=== PATIENT | male | born 1940 | race Caucasian/White ===

== ENCOUNTER 2021-02-13 09:43 | Inpatient (IN) | payer MEDICARE, SELFPAY ==
[2021-02-13] VITALS (89 sets, daily range): BP systolic 89–131; BP diastolic 35–84; PULSE 62–119; RESP 1–43; TEMP 36.5–38.5; O2SAT 88–99
--- NOTE | 2021-02-13 09:30 | RT.EKG_ITS ---
APPROVED REPORT Exam: Resting ECG Reason for Exam: sob Patient Location: E HR:95 bpm ECG Measurements Heart Rate 95 AXIS AK 26 P 0 QRSd 144 QRS 164 QT 387 T 53 QTc 487 Conclusion Sinus rhythm...normal P axis, V-rate 60- 99 Right bundle branch block...QRSd>120, terminal axis(90,270). Sinus. RBBB. No STEMI. No old EKG to compare. I have reviewed and interpreted ECG and agree with software generated interpretation.
--- NOTE | 2021-02-13 09:48 | W.ED.GENAD ---
Discharge Plan Disposition Patient Disposition: [facility] INPATIENT Condition: Serious Discharge Details Clinical Impression: Sepsis, HCAP (healthcare-associated pneumonia), Acute kidney injury superimposed on chronic kidney disease Admit Date/Time: 02/13/21 14:53 Admit Provider: Dragan Lentz Attending Provider: Dragan Lentz Primary Care Provider: Arash Amado ED Provider: Ofe Jordan Discharge Data Discharge Date/Time-TO BE ENTERED AT DEPARTURE: 02/13/21 15:30 Medical Decision Making 80yo M w/ a history of COPD on chronic nasal cannula oxygen and DNR/DNI, dementia, chronic kidney disease, diabetes and BPH presents for difficulty breathing today. Reported to not have been placed on his nasal cannula O2 at rehab initially and EMS reported O2 sat 85% on 2L high flow nasal cannula. Oxygen saturation 97% on 6 L on arrival, will titrate to keep O2 sat >90%. Blood pressure initially 89/35. Axillary temperature 101.3. Patient has diminished breath sounds throughout with scattered rhonchi. Consider sepsis. Will place an IV, bolus IV fluids, screening labs, portable chest x-ray, Covid swab. BP improved with fluids, systolic BP 130s, now 115/54. Labs reviewed. White blood cell count 20. Lactate 3. Sodium 146. Creatinine 3.3. GFR 18. Troponin negative. Urinalysis notes RBCs but no WBCs. Covid swab negative. Chest x-ray notes left lung base infiltrate. A dose of Levaquin p.o. ordered. Patient was able to drink some fluids. Review of patient's records from the health and rehab note that he is on supplemental O2 as needed to keep his O2 above 90%. Oxygen saturation 94% on 3 L nasal cannula. Although his blood pressure is improving with fluids with systolic pressures in the 110s to 120s, as he is requiring supplemental oxygen, with a lactate only minimally improved to 2.9 with fluids, and procalcitonin 2.8, will admit for IV antibiotics and IV fluid hydration with potential sepsis in the setting of pneumonia. Zosyn and vancomycin IV ordered. Case d/w hospitalist who accepts pt for admission. Would prefer cefepime due to kidney disease. Discussed with pharmacy and recommend 1 g of cefepime and will dose vancomycin. Medical Records Medical records reviewed: Yes I reviewed the patient's medical records. Imaging Data Radiologic Study: Radiologist's impression: XR PORTABLE CHEST AP CLINICAL HISTORY: fever, hypoxia, r/o pneumonia. TECHNIQUE: 2D digital imaging was performed. COMPARISON: No exams were available for comparison FINDINGS: There are sternotomy wires and evidence of previous CABG. Heart size is normal.. The mediastinum is not widened. Increased markings in the left lung base. Possible infiltrate. No pulmonary edema. Retrocardiac density possible hiatal hernia IMPRESSION: Left lung base infiltrate. Recommend nonportable PA and lateral views when clinically possible. Or CT scan. Lab Data Lab results reviewed: Yes I reviewed the patient's lab results. Labs: 02/13/21 11:10 Urine - Reflex from Ua Urine Culture - Pending 02/13/21 10:25 Blood Blood Culture - Pending 02/13/21 10:13 Blood Blood Culture - Pending Laboratory Tests Range/Units 02/13/21 02/13/21 02/13/21 10:13 10:13 10:13 WBC (4.4-10.8) 10^3/uL 20.21 H RBC (4.36-5.78) 10^6/uL 4.04 L Hgb (13.5-17.5) g/dL 11.9 L Hct (40.0-50.0) % 38.7 L MCV (80-95) fL 95.8 H MCH (27.0-33.0) pg 29.5 MCHC (32.0-36.0) % 30.7 L RDW (11.8-14.1) % 13.6 Plt Count (130-400) 10^3/uL 257 MPV (8.0-11.0) fL 11.2 H Immature Gran % 0.4 Neutrophils % 90.5 Lymphocytes % 2.8 Monocytes % 6.1 Eosinophils % 0.0 Basophils % 0.2 Nucleated RBC % % 0 Absolute Neutrophils (1.2-6.7) 10^3/uL 18.29 H Absolute Lymphocytes (1.2-3.4) 10^3/uL 0.57 L Absolute Monocytes (0.1-0.8) 10^3/uL 1.23 H Absolute Eosinophils (0.0-0.7) 10^3/uL 0.00 Absolute Basophils (0.0-0.2) 10^3/uL 0.04 VBG Lactate (0.6-1.4) mmol/L 3.0 H* Sodium (136-145) mmol/L 144 Potassium (3.5-5.1) mmol/L 4.7 Chloride (98-107) mmol/L 109 H Carbon Dioxide (21.0-32.0) mmol/L 24.0 Anion Gap (3-11) mmol/L 11.0 BUN (7-18) mg/dL 54 H Creatinine (0.70-1.30) mg/dL 3.3 H Estimated GFR/1.73 m2 (mL/min/1.73m2) 18.17 Glucose (74-106) mg/dL 257 H Calcium (8.5-10.1) mg/dL 8.8 Magnesium (1.8-2.4) mg/dL 2.0 Total Bilirubin (0.2-1.0) mg/dL 0.7 AST (15-37) U/L 69 H ALT (16-63) U/L 38 Alkaline Phosphatase (46-116) U/L 151 H Troponin I (<0.06) ng/mL < 0.05 Total Protein (6.4-8.2) g/dL 7.3 Albumin (3.4-5.0) g/dL 3.0 L Procalcitonin ng/mL Urine Color (Yellow) Urine Clarity (Clear) Urine pH (5-8) Ur Specific [place] (1.005-1.025) Urine Protein (Negative) mg/dL Urine Ketones (Negative) mg/dL Urine Blood (Negative) Urine Nitrite (Negative) Urine Bilirubin (Negative) Urine Urobilinogen (Up TO 0.2) EU/dL Ur Leukocyte Esterase (Negative) Urine RBC (0-2) HPF Urine WBC (0-5) HPF Ur Epithelial Cells (Negative) HPF Urine Crystals (Negative) HPF Urine Bacteria (Negative) HPF Urine Casts (Negative) LPF Urine Mucus (Negative) Ur Culture Indicated? Urine Glucose (Negative) mg/dL COVID-19 Source SARS-CoV-2 (PCR) (Negative) Range/Units 02/13/21 02/13/21 02/13/21 10:45 11:10 12:37 WBC (4.4-10.8) 10^3/uL RBC (4.36-5.78) 10^6/uL Hgb (13.5-17.5) g/dL Hct (40.0-50.0) % MCV (80-95) fL MCH (27.0-33.0) pg MCHC (32.0-36.0) % RDW (11.8-14.1) % Plt Count (130-400) 10^3/uL MPV (8.0-11.0) fL Immature Gran % Neutrophils % Lymphocytes % Monocytes % Eosinophils % Basophils % Nucleated RBC % % Absolute Neutrophils (1.2-6.7) 10^3/uL Absolute Lymphocytes (1.2-3.4) 10^3/uL Absolute Monocytes (0.1-0.8) 10^3/uL Absolute Eosinophils (0.0-0.7) 10^3/uL Absolute Basophils (0.0-0.2) 10^3/uL VBG Lactate (0.6-1.4) mmol/L 2.9 H* Sodium (136-145) mmol/L Potassium (3.5-5.1) mmol/L Chloride (98-107) mmol/L Carbon Dioxide (21.0-32.0) mmol/L Anion Gap (3-11) mmol/L BUN (7-18) mg/dL Creatinine (0.70-1.30) mg/dL Estimated GFR/1.73 m2 (mL/min/1.73m2) Glucose (74-106) mg/dL Calcium (8.5-10.1) mg/dL Magnesium (1.8-2.4) mg/dL Total Bilirubin (0.2-1.0) mg/dL AST (15-37) U/L ALT (16-63) U/L Alkaline Phosphatase (46-116) U/L Troponin I (<0.06) ng/mL Total Protein (6.4-8.2) g/dL Albumin (3.4-5.0) g/dL Procalcitonin ng/mL Urine Color (Yellow) Yellow Urine Clarity (Clear) Clear Urine pH (5-8) 5.5 Ur Specific [place] (1.005-1.025) 1.025 Urine Protein (Negative) mg/dL 30 H Urine Ketones (Negative) mg/dL Trace H Urine Blood (Negative) Moderate H Urine Nitrite (Negative) Negative Urine Bilirubin (Negative) Small H Urine Urobilinogen (Up TO 0.2) EU/dL 1.0 H Ur Leukocyte Esterase (Negative) Trace H Urine RBC (0-2) HPF 5-10 H Urine WBC (0-5) HPF 0-2 Ur Epithelial Cells (Negative) HPF Few Urine Crystals (Negative) HPF Few Amorphous Urine Bacteria (Negative) HPF Negative Urine Casts (Negative) LPF 5-10 Fine Granular Urine Mucus (Negative) Trace Ur Culture Indicated? Yes Urine Glucose (Negative) mg/dL Negative COVID-19 Source Nasal/Nares SARS-CoV-2 (PCR) (Negative) Negative Range/Units 02/13/21 02/13/21 12:37 12:37 WBC (4.4-10.8) 10^3/uL RBC (4.36-5.78) 10^6/uL Hgb (13.5-17.5) g/dL Hct (40.0-50.0) % MCV (80-95) fL MCH (27.0-33.0) pg MCHC (32.0-36.0) % RDW (11.8-14.1) % Plt Count (130-400) 10^3/uL MPV (8.0-11.0) fL Immature Gran % Neutrophils % Lymphocytes % Monocytes % Eosinophils % Basophils % Nucleated RBC % % Absolute Neutrophils (1.2-6.7) 10^3/uL Absolute Lymphocytes (1.2-3.4) 10^3/uL Absolute Monocytes (0.1-0.8) 10^3/uL Absolute Eosinophils (0.0-0.7) 10^3/uL Absolute Basophils (0.0-0.2) 10^3/uL VBG Lactate (0.6-1.4) mmol/L Sodium (136-145) mmol/L 146 H Potassium (3.5-5.1) mmol/L 4.0 Chloride (98-107) mmol/L 111 H Carbon Dioxide (21.0-32.0) mmol/L 23.7 Anion Gap (3-11) mmol/L 11.3 H BUN (7-18) mg/dL 57 H Creatinine (0.70-1.30) mg/dL 3.2 H Estimated GFR/1.73 m2 (mL/min/1.73m2) 18.83 Glucose (74-106) mg/dL 223 H Calcium (8.5-10.1) mg/dL 8.7 Magnesium (1.8-2.4) mg/dL Total Bilirubin (0.2-1.0) mg/dL AST (15-37) U/L ALT (16-63) U/L Alkaline Phosphatase (46-116) U/L Troponin I (<0.06) ng/mL Total Protein (6.4-8.2) g/dL Albumin (3.4-5.0) g/dL Procalcitonin ng/mL 2.8 Urine Color (Yellow) Urine Clarity (Clear) Urine pH (5-8) Ur Specific [place] (1.005-1.025) Urine Protein (Negative) mg/dL Urine Ketones (Negative) mg/dL Urine Blood (Negative) Urine Nitrite (Negative) Urine Bilirubin (Negative) Urine Urobilinogen (Up TO 0.2) EU/dL Ur Leukocyte Esterase (Negative) Urine RBC (0-2) HPF Urine WBC (0-5) HPF Ur Epithelial Cells (Negative) HPF Urine Crystals (Negative) HPF Urine Bacteria (Negative) HPF Urine Casts (Negative) LPF Urine Mucus (Negative) Ur Culture Indicated? Urine Glucose (Negative) mg/dL COVID-19 Source SARS-CoV-2 (PCR) (Negative) ECG Data Attestation: I personally reviewed and interpreted this ECG (s) as follows: Interpretation: rate of 79, sinus, right bundle branch block. No STEMI. HPI General Mode of arrival: EMS. Date/Time Provider Initiated Documentation: 02/13/21 09:47. Limitations to Documentation: no limitations. Information obtained by: patient. HPI Narrative: Patient is a 80-year-old male with history of COPD on chronic nasal cannula oxygen and DNR/DNI, dementia, chronic kidney disease, diabetes and BPH presents for difficulty breathing. Report was [facility] and rehab did not place patient on his nasal cannula oxygen initially. EMS reports oxygen saturation 85% on high flow nasal cannula. Report his temperature was 100.9. Patient is moaning and unable to provide history. Related Data Home Medications Medication Instructions Recorded Confirmed acetaminophen 650 mg PO Q6H PRN 02/13/21 02/13/21 albuterol sulfate 2.5 mg INHALATION Q4H PRN 02/13/21 02/13/21 aspirin 81 mg PO DAILY 02/13/21 02/13/21 atorvastatin 80 mg PO DAILY 02/13/21 02/13/21 bisacodyl [Dulcolax (bisacodyl)] 10 mg [place] DAILY PRN 02/13/21 02/13/21 dextrose [Glucose Gel] 15 g PO DIRECTED PRN 02/13/21 02/13/21 docusate sodium [Colace] 100 mg PO BID PRN 02/13/21 02/13/21 finasteride 5 mg PO DAILY 02/13/21 02/13/21 fluticasone propionate [Flovent] 2 puff INHALATION BID 02/13/21 02/13/21 glucagon 1 mg IM DIRECTED PRN 02/13/21 02/13/21 insulin glargine [Lantus U-100 30 unit SUBCUT DAILY 02/13/21 02/13/21 Insulin] insulin lispro [Humalog U-100 1 sliding scale dose SUBCUT 02/13/21 02/13/21 Insulin] USEASDIRECTD losartan 50 mg PO DAILY 02/13/21 02/13/21 magnesium hydroxide 30 ml PO QHS PRN 02/13/21 02/13/21 nitroglycerin 0.4 mg SUBLINGUAL Q5-15M PRN 02/13/21 02/13/21 potassium chloride 10 meq PO BID 02/13/21 02/13/21 risperidone 0.5 mg PO BID 02/13/21 02/13/21 sennosides [senna] 8.6 mg PO DAILY PRN 02/13/21 02/13/21 sodium phosphates [Fleet Enema] 118 ml GA DAILY PRN 02/13/21 02/13/21 tamsulosin 0.4 mg PO DAILY 02/13/21 02/13/21 torsemide 20 mg PO DIRECTED 02/13/21 02/13/21 Allergies Allergy/AdvReac Type Severity Reaction Status Date / Time No Known Allergies Allergy Unverified 02/13/21 10:40 Review of Systems All systems reviewed & are unremarkable except as noted in HPI and below Constitutional Constitutional: Reports as per HPI, Denies chills and Denies fever(s) Eyes Eyes: Denies blurry vision ENT Ears, Nose, Mouth, and Throat: Denies dizziness, Denies sore throat and Denies throat swelling Cardiovascular Cardiovascular: Denies chest pain and Reports dyspnea Respiratory Respiratory: Denies cough and Reports dyspnea Gastrointestinal Gastrointestinal: Denies abdominal pain, Denies diarrhea and Denies vomiting Genitourinary Genitourinary: Denies hematuria and Denies dysuria Musculoskeletal Musculoskeletal: Denies back pain and Denies numbness Integumentary/Breasts Skin/Breast: Denies lesions and Denies rash Neurologic Neurologic: Denies dizziness, Denies localized weakness and Denies numbness Allergic/Immunologic Allergic/Immunologic: Denies throat swelling PFS Active Problem List (Updated 02/13/21 @ 14:36 by Ofe Jordan DO) Sepsis (Acute) HCAP (healthcare-associated pneumonia) (Acute) Acute kidney injury superimposed on chronic kidney disease (Acute) Medical History (Updated 02/13/21 @ 14:36 by Ofe Jordan DO) BPH (benign prostatic hyperplasia) Chronic kidney disease COPD (chronic obstructive pulmonary disease) Dementia Diabetes DNI (do not intubate) DNR (do not resuscitate) Social History Smoking/Tobacco Use Status: Unknown Smoking risk assessment performed?: Yes Exam Const General: cooperative and no acute distress HENMT Head: normal to inspection Face and sinus: normal facial exam Eyes General: appearance normal, both eyes and all related structures EOM: EOM intact bilaterally Neck Neck: normal visual inspection and No submandibular swelling Lymphatic: no lymphadenopathy noted Chest Chest: normal inspection of the chest and no tenderness Resp Effort & Inspection: normal respiratory effort and able to speak in complete sentences Auscultation: diminished lung sounds bilaterally throughout and rhonchi upper bilaterally and lower bilaterally Cardio Rate: regular rate Rhythm: regular rhythm GI Inspection: normal to inspection Palpation: soft, not firm, not rigid and nontender Auscultation: normal bowel sounds Skin General skin exam: no rashes or lesions noted Neuro General: patient alert, patient awake and patient oriented x3 Cognition: normal cognition Speech: speech normal Motor: muscle tone normal throughout Sensory Exam: no sensory deficits noted Extrem General: normal to inspection, full ROM, capillary refill normal, no calf tenderness bilaterally and no edema Psych Appearance: grossly normal Mental Status: mental status grossly normal Speech and Movement: speech and movement normal Affect: normal affect
[2021-02-13 10:23] LABS: Abs Immature Grans 0.09 10^3/uL (0.0-0.06); Absolute Basophil Count 0.04 10^3/uL (0.0-0.2); Absolute Lymphocyte Count 0.57 10^3/uL (1.2-3.4); Absolute Monocyte Count 1.23 10^3/uL (0.1-0.8); Absolute Neutrophil Count 18.29 10^3/uL (1.2-6.7); Basophils % 0.2; HCT 38.7 % (40.0-50.0); HGB 11.9 g/dL (13.5-17.5); Immature Grans % 0.4; Lymphocytes % 2.8; MCH 29.5 pg (27.0-33.0); MCHC 30.7 % (32.0-36.0); MCV 95.8 fL (80-95); MPV 11.2 fL (8.0-11.0); Monocytes % 6.1; Neutrophils % 90.5; Nucleated RBC 0 %; Platelet Count 257 10^3/uL (130-400); RBC 4.04 10^6/uL (4.36-5.78); RDW 13.6 % (11.8-14.1); WBC 20.21 10^3/uL (4.4-10.8)
[2021-02-13 10:42] LABS: ALT 38 U/L (16-63); AST 69 U/L (15-37); Alkaline Phosphatase 151 U/L (46-116); BUN 54 mg/dL (7-18); Bilirubin, Total 0.7 mg/dL (0.2-1.0); CREATININE 3.3 mg/dL (0.70-1.30); Calcium 8.8 mg/dL (8.5-10.1); Chloride 109 mmol/L (98-107); Estimated GFR 18.17 (mL/min/1.73m2); Glucose 257 mg/dL (74-106); Potassium 4.7 mmol/L (3.5-5.1); Sodium 144 mmol/L (136-145); Total Protein 7.3 g/dL (6.4-8.2)
[2021-02-13 10:45] LABS: Troponin I < 0.05 ng/mL (<0.06)
--- NOTE | 2021-02-13 10:45 | DI.RAD_ITS ---
Exam(s) XR PORTABLE CHEST AP EXAM: XR PORTABLE CHEST AP CLINICAL HISTORY: fever, hypoxia, r/o pneumonia. TECHNIQUE: 2D digital imaging was performed. COMPARISON: No exams were available for comparison FINDINGS: There are sternotomy wires and evidence of previous CABG. Heart size is normal.. The mediastinum is not widened. Increased markings in the left lung base. Possible infiltrate. No pulmonary edema. Retrocardiac de nsity possible hiatal hernia IMPRESSION: Left lung base infiltrate. Recommend nonportable PA and lateral views when clinically possible. Or CT scan. DATA REPOSITORY: RADIATION DOSE DELIVERED: All CT scans at this facility use at least one of these dose optimization techniques: automated exposure control; mA and/or kV adjustment per patient size (includes targeted e xams where dose is matched to clinical indication); or iterative reconstruction.
[2021-02-13 10:52] LABS: Source Nasal/Nares
[2021-02-13] MEDS: Normal Saline 500 ML IV ×2 (11:10→12:55)
[2021-02-13] MEDS: methylPREDNISolone SUCC 125 MG VIAL IVP (11:10)
[2021-02-13] MEDS: ACETAMINOPHEN 1,000 MG/100 ML BTL 400 MG IVPB (11:13)
[2021-02-13 11:26] LABS: Bilirubin Small (Negative); Blood Moderate (Negative); Clarity Clear (Clear); Glucose Negative (Negative); Ketones Trace mg/dL (Negative); Leukocyte Esterase Trace (Negative); Nitrite Negative (Negative); Specific Gravity 1.025 (1.005-1.025); pH 5.5 (5-8)
[2021-02-13 11:32] LABS: COVID-19 PCR Negative (Negative)
[2021-02-13 11:37] LABS: Bacteria Negative HPF (Negative); C & S Indicated? Yes; Crystals Few Amorphous HPF (Negative); Epithelial Cells Few HPF (Negative); Mucus Trace (Negative); WBC 0-2 HPF (0-5)
[2021-02-13] MEDS: Albuterol/Ipratropium 3 ML UPD VIAL UPD (11:45)
[2021-02-13] MEDS: levoFLOXacin 500 MG, levoFLOXacin 250 MG 750 MG PO (12:45)
[2021-02-13 12:48] LABS: Lactate 2.9 mmol/L (0.6-1.4)
[2021-02-13 12:54] LABS: Anion Gap 11.3 mmol/L (3-11); BUN 57 mg/dL (7-18); CO2 23.7 mmol/L (21.0-32.0); CREATININE 3.2 mg/dL (0.70-1.30); Calcium 8.7 mg/dL (8.5-10.1); Chloride 111 mmol/L (98-107); Estimated GFR 18.83 (mL/min/1.73m2); Glucose 223 mg/dL (74-106); Sodium 146 mmol/L (136-145)
[2021-02-13 14:24] LABS: Procalcitonin 2.8 ng/mL
--- NOTE | 2021-02-13 15:10 | HPE_ITS ---
Date of service: 02/13/21 Time of Service: 15:11 Assessment and Plan Assessment and plan (1) HCAP (healthcare-associated pneumonia): Status: Acute Assessment and plan: with oxygen requirements. covid pcr negative. admit to med/surg continue cefepime and vancomycin day 1 updrafts, pulmonary toilet (2) Acute kidney injury superimposed on chronic kidney disease: Status: Acute Assessment and plan: creatinine at 3.3, unknown baseline giving IV fluids, avoid nephrotoxic drugs, renal dosing as needed. monitor closely (3) Diabetes: Assessment and plan: diabetic diet sliding scale with meals and bedtime continue home medication and adjust as needed. (4) Dementia: Assessment and plan: safety precautions anticipate delirium in setting of infection and hospitalization (5) BPH (benign prostatic hyperplasia): Assessment and plan: continue tamsulosin and finasteride for now, ? necessity with indwelling castillo catheter in place. discussed with DR Lentz History of Present Illness History of Present Illness Chief Complaint: hypoxia, Narrative: this is a 80 year old who presents from [facility] and rehab for reports respiratory symptoms including hypoxia. His evaluation in the ED is concerning for pneumonia. He white count elevated to 20, lactic acid elevated and procalcitonin 2.8, he is oxygenating in the mid 90's on 3 liter nc. he is given cefepime and vancomycin in the ED and will be admitted to med/surg for further management and evaluation. of note he was noted to be hypotensive in the Ed briefly, responding to a fluid bolus. His lactate improved following the bolus. He is now hemodynamically stable and appropriate for floor admission. Review of Systems Unobtainable due to mental status (patient resting quietly, no verbal responses) [facility] Active Problem List (Updated 02/13/21 @ 14:36 by Ofe Jordan DO) Sepsis (Acute) HCAP (healthcare-associated pneumonia) (Acute) Acute kidney injury superimposed on chronic kidney disease (Acute) Medical History (Updated 02/13/21 @ 14:36 by Ofe Jordan DO) BPH (benign prostatic hyperplasia) Chronic kidney disease COPD (chronic obstructive pulmonary disease) Dementia Diabetes DNI (do not intubate) DNR (do not resuscitate) Social History Smoking/Tobacco Use Status: Unknown Smoking risk assessment performed?: Yes Meds Allergies and Home Medications Allergies Allergy/AdvReac Type Severity Reaction Status Date / Time No Known Allergies Allergy Unverified 02/13/21 10:40 Home Medications Medication Instructions Recorded Confirmed Type acetaminophen 650 mg PO Q6H PRN 02/13/21 02/13/21 History albuterol sulfate 2.5 mg INHALATION Q4H PRN 02/13/21 02/13/21 History aspirin 81 mg PO DAILY 02/13/21 02/13/21 History atorvastatin 80 mg PO DAILY 02/13/21 02/13/21 History bisacodyl [Dulcolax (bisacodyl)] 10 mg [place] DAILY PRN 02/13/21 02/13/21 History dextrose [Glucose Gel] 15 g PO DIRECTED PRN 02/13/21 02/13/21 History docusate sodium [Colace] 100 mg PO BID PRN 02/13/21 02/13/21 History finasteride 5 mg PO DAILY 02/13/21 02/13/21 History fluticasone propionate [Flovent] 2 puff INHALATION BID 02/13/21 02/13/21 History glucagon 1 mg IM DIRECTED PRN 02/13/21 02/13/21 History insulin glargine [Lantus U-100 30 unit SUBCUT DAILY 02/13/21 02/13/21 History Insulin] insulin lispro [Humalog U-100 1 sliding scale dose SUBCUT 02/13/21 02/13/21 History Insulin] USEASDIRECTD losartan 50 mg PO DAILY 02/13/21 02/13/21 History magnesium hydroxide 30 ml PO QHS PRN 02/13/21 02/13/21 History nitroglycerin 0.4 mg SUBLINGUAL Q5-15M PRN 02/13/21 02/13/21 History potassium chloride 10 meq PO BID 02/13/21 02/13/21 History risperidone 0.5 mg PO BID 02/13/21 02/13/21 History sennosides [senna] 8.6 mg PO DAILY PRN 02/13/21 02/13/21 History sodium phosphates [Fleet Enema] 118 ml [place] DAILY PRN 02/13/21 02/13/21 History tamsulosin 0.4 mg PO DAILY 02/13/21 02/13/21 History torsemide 20 mg PO DIRECTED 02/13/21 02/13/21 History Exam Const General: no acute distress HENMT Head: normal to inspection Face and sinus: normal facial exam Eyes General: appearance normal, both eyes and all related structures Neck Neck: normal visual inspection Lymphatic: no lymphadenopathy noted Chest Chest: normal inspection of the chest and no tenderness Resp Effort & Inspection: normal respiratory effort Auscultation: diminished lung sounds bilaterally throughout and rhonchi upper bilaterally and lower bilaterally Cardio Rate: regular rate Rhythm: regular rhythm GI Inspection: normal to inspection Palpation: soft, not firm, not rigid and nontender Auscultation: normal bowel sounds Male General Exam: Yes normal external exam Back/Spine/Pelvis Thoracic/Lumbar Spine: thoracic and lumbar spine normal to inspection Skin General skin exam: no rashes or lesions noted Neuro Motor: muscle tone normal throughout Sensory Exam: no sensory deficits noted Extrem General: normal to inspection, full ROM and no edema Psych Appearance: grossly normal Results Labs Result diagrams: 02/13/21 10:13 02/13/21 12:37 Labs: Laboratory Results - last 24 hr 02/13/21 02/13/21 02/13/21 10:13 10:13 10:13 WBC 20.21 H RBC 4.04 L Hgb 11.9 L Hct 38.7 L MCV 95.8 H MCH 29.5 MCHC 30.7 L RDW 13.6 Plt Count 257 MPV 11.2 H Immature Gran % 0.4 Neutrophils % 90.5 Lymphocytes % 2.8 Monocytes % 6.1 Eosinophils % 0.0 Basophils % 0.2 Nucleated RBC % 0 Absolute Neutrophils 18.29 H Absolute Lymphocytes 0.57 L Absolute Monocytes 1.23 H Absolute Eosinophils 0.00 Absolute Basophils 0.04 VBG Lactate 3.0 H* Sodium 144 Potassium 4.7 Chloride 109 H Carbon Dioxide 24.0 Anion Gap 11.0 BUN 54 H Creatinine 3.3 H Estimated GFR/1.73 m2 18.17 Glucose 257 H Calcium 8.8 Magnesium 2.0 Total Bilirubin 0.7 AST 69 H ALT 38 Alkaline Phosphatase 151 H Troponin I < 0.05 Total Protein 7.3 Albumin 3.0 L Procalcitonin Urine Color Urine Clarity Urine pH Ur Specific [place] Urine Protein Urine Ketones Urine Blood Urine Nitrite Urine Bilirubin Urine Urobilinogen Ur Leukocyte Esterase Urine RBC Urine WBC Ur Epithelial Cells Urine Crystals Urine Bacteria Urine Casts Urine Mucus Ur Culture Indicated? Urine Glucose COVID-19 Source SARS-CoV-2 (PCR) 02/13/21 02/13/21 02/13/21 10:45 11:10 12:37 WBC RBC Hgb Hct MCV MCH MCHC RDW Plt Count MPV Immature Gran % Neutrophils % Lymphocytes % Monocytes % Eosinophils % Basophils % Nucleated RBC % Absolute Neutrophils Absolute Lymphocytes Absolute Monocytes Absolute Eosinophils Absolute Basophils VBG Lactate 2.9 H* Sodium Potassium Chloride Carbon Dioxide Anion Gap BUN Creatinine Estimated GFR/1.73 m2 Glucose Calcium Magnesium Total Bilirubin AST ALT Alkaline Phosphatase Troponin I Total Protein Albumin Procalcitonin Urine Color Yellow Urine Clarity Clear Urine pH 5.5 Ur Specific [place] 1.025 Urine Protein 30 H Urine Ketones Trace H Urine Blood Moderate H Urine Nitrite Negative Urine Bilirubin Small H Urine Urobilinogen 1.0 H Ur Leukocyte Esterase Trace H Urine RBC 5-10 H Urine WBC 0-2 Ur Epithelial Cells Few Urine Crystals Few Amorphous Urine Bacteria Negative Urine Casts 5-10 Fine Granular Urine Mucus Trace Ur Culture Indicated? Yes Urine Glucose Negative COVID-19 Source Nasal/Nares SARS-CoV-2 (PCR) Negative 02/13/21 02/13/21 12:37 12:37 WBC RBC Hgb Hct MCV MCH MCHC RDW Plt Count MPV Immature Gran % Neutrophils % Lymphocytes % Monocytes % Eosinophils % Basophils % Nucleated RBC % Absolute Neutrophils Absolute Lymphocytes Absolute Monocytes Absolute Eosinophils Absolute Basophils VBG Lactate Sodium 146 H Potassium 4.0 Chloride 111 H Carbon Dioxide 23.7 Anion Gap 11.3 H BUN 57 H Creatinine 3.2 H Estimated GFR/1.73 m2 18.83 Glucose 223 H Calcium 8.7 Magnesium Total Bilirubin AST ALT Alkaline Phosphatase Troponin I Total Protein Albumin Procalcitonin 2.8 Urine Color Urine Clarity Urine pH Ur Specific [place] Urine Protein Urine Ketones Urine Blood Urine Nitrite Urine Bilirubin Urine Urobilinogen Ur Leukocyte Esterase Urine RBC Urine WBC Ur Epithelial Cells Urine Crystals Urine Bacteria Urine Casts Urine Mucus Ur Culture Indicated? Urine Glucose COVID-19 Source SARS-CoV-2 (PCR) Last Vital Signs Temp 36.5 C 02/13/21 12:48 Pulse 89 02/13/21 12:48 Resp 27 H 02/13/21 14:12 BP 115/54 L 02/13/21 12:48 Pulse Ox 93 02/13/21 14:12
[2021-02-13] MEDS: VANCOMYCIN/WATER (PEG) 1 GM/200 ML BAG IV (16:09)
[2021-02-13] MEDS: Normal Saline Flush 10 ML SYR (16:19)
[2021-02-13] MEDS: Insulin Aspart 300 UNITS/3 ML PEN SC ×2 (18:42→21:30)
[2021-02-13] MEDS: CEFEPIME 1 GM in Normal Saline 50 ML IVPB (18:44)
[2021-02-13] MEDS: Normal Saline 1,000 ML 80 ML IV (19:00)
[2021-02-14] VITALS (9 sets, daily range): BP systolic 111–135; BP diastolic 50–65; PULSE 70–90; RESP 1–28; TEMP 36.2–36.9; O2SAT 94–98
[2021-02-14] MEDS: CEFEPIME 1 GM in Normal Saline 50 ML IVPB ×2 (05:47→18:33)
[2021-02-14 07:00] LABS: Abs Immature Grans 0.18 10^3/uL (0.0-0.06); Absolute Basophil Count 0.05 10^3/uL (0.0-0.2); Basophils % 0.2; HCT 35.8 % (40.0-50.0); HGB 11.2 g/dL (13.5-17.5); Immature Grans % 0.7; MCH 29.9 pg (27.0-33.0); MCHC 31.3 % (32.0-36.0); MCV 95.7 fL (80-95); MPV 11.7 fL (8.0-11.0); Monocytes % 4.9; Neutrophils % 90.2; Nucleated RBC 0 %; Platelet Count 213 10^3/uL (130-400); RBC 3.74 10^6/uL (4.36-5.78); RDW 13.6 % (11.8-14.1); RDW-SD 48.6 fL
[2021-02-14 07:20] LABS: Absolute Lymphocyte Count 1.06 10^3/uL (1.2-3.4); Absolute Neutrophil Count 23.96 10^3/uL (1.2-6.7)
[2021-02-14 07:34] LABS: ALT 34 U/L (16-63); AST 62 U/L (15-37); Albumin 2.6 g/dL (3.4-5.0); Alkaline Phosphatase 134 U/L (46-116); Anion Gap 13.6 mmol/L (3-11); BUN 53 mg/dL (7-18); Bilirubin, Total 0.4 mg/dL (0.2-1.0); CO2 21.4 mmol/L (21.0-32.0); CREATININE 2.7 mg/dL (0.70-1.30); Calcium 9.1 mg/dL (8.5-10.1); Chloride 112 mmol/L (98-107); Estimated GFR 22.91 (mL/min/1.73m2); Glucose 131 mg/dL (74-106); Potassium 4.2 mmol/L (3.5-5.1); Sodium 147 mmol/L (136-145); Total Protein 6.8 g/dL (6.4-8.2)
[2021-02-14 07:36] LABS: WBC 26.56 10^3/uL (4.4-10.8)
[2021-02-14 07:37] LABS: Diff Comment Agrees w/ Instrument; Poikilocytes 1+
--- NOTE | 2021-02-14 08:38 | PDOC.CMIN ---
- If Service Date Differs Date of service: 02/14/21 Time of Service: 08:39 Care Management Initial Assess REASON FOR HOSPITALIZATION:: Pneumonia, possible sepsis PAST MEDICAL HISTORY/PAST SURGICAL HISTORY:: Active Problem List (Updated 02/13/21 @ 14:36 by Ofe Jordan DO). Sepsis (Acute). HCAP (healthcare-associated pneumonia) (Acute). Acute kidney injury superimposed on chronic kidney disease (Acute). Medical History (Updated 02/13/21 @ 14:36 by Ofe Jordan DO). BPH (benign prostatic hyperplasia). Chronic kidney disease. COPD (chronic obstructive pulmonary disease). Dementia. Diabetes. DNI (do not intubate). DNR (do not resuscitate) PREVIOUS FUNCTIONAL STATUS/SOCIAL/FAMILY SUPPORTS:: Crow resides at the [facility]. He has a HX of Dementia. His lives in [facility]. CM was unable to obtain additional info. CURRENT FUNCTIONAL STATUS:: Crow was sitting up in his chair when CM met with him. He seemed pleasantly confused and talked with CM a little about the [facility]. Crow appears comfortable and denies concerns. Patient is anticipating being dischaged back to [facility] when his condition improves. ADVANCE DIRECTIVES:: COLST form on file, HCA is Annabel Naylor () Has patient been provided with info about the portal/API?: Yes Did the patient sign up for the portal?: No CODE STATUS:: DNR/DNI INSURANCE COVERAGE / FINANCIAL ISSUES:: AARP/UN. HLTH [employer] Replacement CURRENT HOME/COMMUNITY SERVICES/EQUIPMENT:: Uses a walker. Resides at [facility] PRIMARY CARE PHYSICIAN:: Arash Amado PATIENT/FAMILY EDUCATION NEEDS:: Review discharge instructions, limitations and plan to follow up with community providers. ask me three. TRANSPORTATION:: Back [facility] via facility van. PLAN:: Anticipate Crow will discharge back to [facility] via facility van when medically cleared by provider. He will follow up with community providers and discharge plan of care as prescribed.
[2021-02-14] MEDS: Normal Saline 1,000 ML 80 ML IV (08:56)
[2021-02-14] MEDS: Albuterol/Ipratropium 3 ML UPD VIAL UPD ×4 (09:03→19:55)
[2021-02-14] MEDS: predniSONE 20 MG TAB 40 MG PO (09:21)
[2021-02-14] MEDS: Tamsulosin 0.4 MG CAPCR PO (09:22)
[2021-02-14] MEDS: Atorvastatin 40 MG TAB 80 MG PO (09:22)
[2021-02-14] MEDS: Losartan 50 MG TAB PO (09:23)
[2021-02-14] MEDS: Finasteride 5 MG TAB PO (09:23)
[2021-02-14] MEDS: risperiDONE 0.5 MG TAB PO ×2 (09:23→19:55)
[2021-02-14] MEDS: Aspirin E.C. 81 MG TABEC PO (09:23)
[2021-02-14] MEDS: Potassium Chloride 10 MEQ TABCR PO ×2 (09:23→19:55)
[2021-02-14] MEDS: Insulin Aspart 300 UNITS/3 ML PEN SC ×4 (09:24→21:28)
[2021-02-14] MEDS: Insulin Glargine 300 UNITS/3 ML PEN 30 UNITS SC (09:30)
[2021-02-14] MEDS: Mometasone 220 MCG 14 DOSE INHALER 2 PUFF IH ×2 (11:09→19:55)
--- NOTE | 2021-02-14 11:36 | W.PM.PROGNOT ---
Date of Service Date of service: 02/14/21 Time of Service: 11:36 Assessment and Plan Assessment and plan (1) HCAP (healthcare-associated pneumonia): Status: Acute Assessment and plan: with oxygen requirements. covid pcr negative. continue cefepime and vancomycin day 2 updrafts, pulmonary toilet (2) Acute kidney injury superimposed on chronic kidney disease: Status: Acute Assessment and plan: creatinine improved to 2.7 from 3.3, unknown baseline continue gentle IV fluids, avoid nephrotoxic drugs, renal dosing as needed. monitor closely (3) Diabetes: Assessment and plan: diabetic diet sliding scale with meals and bedtime continue home medication and adjust as needed. (4) Dementia: Assessment and plan: safety precautions anticipate delirium in setting of infection and hospitalization (5) BPH (benign prostatic hyperplasia): Assessment and plan: continue tamsulosin and finasteride for now, ? necessity with indwelling castillo catheter in place. discussed with DR Lentz Subjective Subjective Patient reports: no new complaints, tolerating liquids well, tolerating a regular diet and afebrile; denies shortness of breath Interval history since last seen: awake now and tolerating a diet well. castillo draining well. Exam Const General: no acute distress HENMT Head: normal to inspection Face and sinus: normal facial exam Eyes General: appearance normal, both eyes and all related structures Neck Neck: normal visual inspection Resp Effort & Inspection: normal respiratory effort Auscultation: diminished lung sounds bilaterally throughout and rhonchi upper bilaterally and lower bilaterally Cardio Rate: regular rate Rhythm: regular rhythm GI Inspection: normal to inspection Palpation: soft and nontender Auscultation: normal bowel sounds Skin General skin exam: no rashes or lesions noted Neuro General: patient alert and patient awake Speech: speech normal Motor: muscle tone normal throughout Extrem General: normal to inspection, full ROM and no edema Psych Appearance: grossly normal Mental Status: mental status grossly normal Speech and Movement: speech and movement normal Affect: normal affect Objective Last Vital Signs Temp 36.9 C 02/14/21 08:39 Pulse 80 02/14/21 09:03 Resp 22 02/14/21 09:03 BP 135/65 02/14/21 08:39 Pulse Ox 94 02/14/21 09:03 Laboratory Results - last 24 hr 02/13/21 02/13/21 02/13/21 11:10 12:37 12:37 WBC RBC Hgb Hct MCV MCH MCHC RDW Plt Count MPV Immature Gran % Neutrophils % Lymphocytes % Monocytes % Eosinophils % Basophils % Nucleated RBC % Absolute Neutrophils Absolute Lymphocytes Absolute Monocytes Absolute Eosinophils Absolute Basophils RBC Morphology Poikilocytosis VBG Lactate 2.9 H* Sodium 146 H Potassium 4.0 Chloride 111 H Carbon Dioxide 23.7 Anion Gap 11.3 H BUN 57 H Creatinine 3.2 H Estimated GFR/1.73 m2 18.83 Glucose 223 H Calcium 8.7 Total Bilirubin AST ALT Alkaline Phosphatase Total Protein Albumin Procalcitonin Urine RBC 5-10 H Urine WBC 0-2 Ur Epithelial Cells Few Urine Crystals Few Amorphous Urine Bacteria Negative Urine Casts 5-10 Fine Granular Urine Mucus Trace Ur Culture Indicated? Yes 02/13/21 02/14/21 02/14/21 12:37 06:22 06:22 WBC 26.56 H* D RBC 3.74 L Hgb 11.2 L Hct 35.8 L MCV 95.7 H MCH 29.9 MCHC 31.3 L RDW 13.6 Plt Count 213 MPV 11.7 H Immature Gran % 0.7 Neutrophils % 90.2 Lymphocytes % 4.0 Monocytes % 4.9 Eosinophils % 0.0 Basophils % 0.2 Nucleated RBC % 0 Absolute Neutrophils 23.96 H Absolute Lymphocytes 1.06 L Absolute Monocytes 1.30 H Absolute Eosinophils 0.00 Absolute Basophils 0.05 RBC Morphology See Below Poikilocytosis 1+ VBG Lactate Sodium 147 H Potassium 4.2 Chloride 112 H Carbon Dioxide 21.4 Anion Gap 13.6 H BUN 53 H Creatinine 2.7 H Estimated GFR/1.73 m2 22.91 Glucose 131 H D Calcium 9.1 Total Bilirubin 0.4 AST 62 H ALT 34 Alkaline Phosphatase 134 H Total Protein 6.8 Albumin 2.6 L Procalcitonin 2.8 Urine RBC Urine WBC Ur Epithelial Cells Urine Crystals Urine Bacteria Urine Casts Urine Mucus Ur Culture Indicated?
[2021-02-15] MEDS: CEFEPIME 1 GM in Normal Saline 50 ML IVPB (06:30)
[2021-02-15] MEDS: Normal Saline Flush 10 ML SYR ×2 (06:30→08:44)
[2021-02-15 07:50] VITALS: BP 173/73; PULSE 73; RESP 18; TEMP 36.1; O2SAT 99
[2021-02-15 08:42] VITALS: RESP 4
[2021-02-15] MEDS: Finasteride 5 MG TAB PO (08:42)
[2021-02-15] MEDS: Albuterol/Ipratropium 3 ML UPD VIAL UPD ×2 (08:42→11:59)
[2021-02-15] MEDS: predniSONE 20 MG TAB 40 MG PO (08:42)
[2021-02-15] MEDS: Losartan 50 MG TAB PO (08:43)
[2021-02-15] MEDS: Torsemide 20 MG TAB PO (08:43)
[2021-02-15] MEDS: Potassium Chloride 10 MEQ TABCR PO (08:43)
[2021-02-15] MEDS: Tamsulosin 0.4 MG CAPCR PO (08:43)
[2021-02-15] MEDS: Atorvastatin 40 MG TAB 80 MG PO (08:43)
[2021-02-15] MEDS: Mometasone 220 MCG 14 DOSE INHALER 2 PUFF IH (08:43)
[2021-02-15] MEDS: risperiDONE 0.5 MG TAB PO (08:43)
[2021-02-15] MEDS: Aspirin E.C. 81 MG TABEC PO (08:43)
[2021-02-15] MEDS: Insulin Aspart 300 UNITS/3 ML PEN SC ×2 (08:45→12:08)
[2021-02-15] MEDS: Insulin Glargine 300 UNITS/3 ML PEN 30 UNITS SC (08:45)
--- NOTE | 2021-02-15 09:18 | CMPROGNOTE_ITS ---
- If Service Date Differs Date of service: 02/15/21 Time of Service: 09:18 Care Management Progress Note S/O: A: Crow is a 80 year old man admitted on 02/13/21 with pneumonia P:Anticipate Crow will discharge back to [facility] via facility van when medically cleared by provider. He will follow up with community providers and discharge plan of care as prescribed.
--- NOTE | 2021-02-15 10:02 | DSE_ITS ---
Date of service: 02/15/21 Time of Service: 10:02 DS: Diagnosis Discharge Diagnosis (1) HCAP (healthcare-associated pneumonia): Status: Acute (2) Acute kidney injury superimposed on chronic kidney disease: Status: Acute (3) Diabetes: (4) Dementia: (5) BPH (benign prostatic hyperplasia): Discharge Plan Disposition Patient Disposition: [facility]ED LEVEL 1 Condition: Stable Discharge Details Reason For Visit: pneumonia, possible sepsis Admit Date/Time: 02/13/21 14:53 Admit Provider: Dragan Lentz Attending Provider: Dragan Lentz Primary Care Provider: Arash Amado Hospital Course Hospital Course: This is a 80 year old male from [facility] who was brought to the emergency department for reports of hypoxia. He was found to have an elevated white count and pneumonia on xray. He had oxygen requirements and blood pressure dropped to 80's systolic. He was given IV fluids and blood pressure responded well. He was never tachy. He was started on vancomycin and cefepime and admitted to hospitalist services. His white count initially aiden but clinically he improved. His respiratory status remained stable. He was weaned off oxygen, was up out of bed and tolerating a regular diet. His urine also grew entercoccus and he will be discharged on augmentin to complete a 7 day course to cover both respiratory and urinary tract infection. discharge discussed with Dr Lentz. Home Meds and New Rx's Prescriptions: New prednisone 20 mg Tablet 40 mg PO DAILY Qty: 8 RF: 0 amoxicillin-pot clavulanate 875-125 mg Tablet 1 tab PO BID Qty: 13 RF: 0 Continued losartan 50 mg Tablet 50 mg PO DAILY RF: 0 glucagon 1 mg Kit 1 mg IM DIRECTED PRNRF: 0 atorvastatin 80 mg Tablet 80 mg PO DAILY RF: 0 sennosides [senna] 8.6 mg Tablet 8.6 mg PO DAILY PRNRF: 0 acetaminophen 325 mg Tablet 650 mg PO Q6H PRNRF: 0 Lantus U-100 Insulin 100 unit/mL Solution 30 unit SUBCUT DAILY RF: 0 torsemide 20 mg Tablet 20 mg PO DIRECTED RF: 0 albuterol sulfate 2.5 mg /3 mL (0.083 %) Solution For Nebulization 2.5 mg INHALATION Q4H PRNRF: 0 dextrose [Glucose Gel] 40 % Gel 15 g PO DIRECTED PRNRF: 0 potassium chloride 10 mEq Tablet Extended Release 10 meq PO BID RF: 0 magnesium hydroxide 400 mg/5 mL Suspension 30 ml PO QHS PRNRF: 0 tamsulosin 0.4 mg Capsule 0.4 mg PO DAILY RF: 0 bisacodyl [Dulcolax (bisacodyl)] 10 mg Suppository 10 mg UT DAILY PRNRF: 0 Fleet Enema 19-7 gram/118 mL Enema 118 ml UT DAILY PRNRF: 0 nitroglycerin 0.4 mg Tablet, Sublingual 0.4 mg SUBLINGUAL Q5-15M PRNRF: 0 docusate sodium [Colace] 100 mg Capsule 100 mg PO BID PRNRF: 0 aspirin 81 mg Tablet 81 mg PO DAILY RF: 0 insulin lispro [Humalog U-100 Insulin] 100 unit/mL Solution 1 sliding scale dose SUBCUT USEASDIRECTD RF: 0 risperidone 1 mg Tablet 0.5 mg PO BID RF: 0 finasteride 5 mg Tablet 5 mg PO DAILY RF: 0 fluticasone propionate 110 mcg/actuation Hfa Aerosol Inhaler 2 puff INHALATION BID RF: 0 Discharge Instructions Instructions: Pneumonia (DC), Catheter-associated Urinary Tract Infection (DC) Additional Instructions: complete 7 more days of antibiotics to cover both the pneumonia and UTI finish steroid burst Stand Alone Forms: Nursing Discharge Form Referrals: Arash Amado [Primary Care Provider] - (Follow up with Health & Rehab Doctor ) Activity:: Activity as Tolerated Equipment/Supplies:: No Equipment Needed Diet:: Carb Counting Discharge Orders Discharge Orders: Discharge Order (Routine); Ordered 02/15/21 Ordered By: Nallely Gee Discharge Data Discharge Date/Time-TO BE ENTERED AT DEPARTURE: 02/15/21 13:22 DS: Summary Time Spent with Patient providing and/or coordinating discharge services: Greater than 30 minutes Status at Discharge Functional status at discharge: uses cane/walker Overall status at discharge: patient is progressing back to baseline Mental Status: mental status grossly normal Speech and Movement: speech and movement normal Mood: congruent mood Affect: normal affect Exam Const General: no acute distress HENMT Head: normal to inspection Face and sinus: normal facial exam Eyes General: appearance normal, both eyes and all related structures Pupils: PERRL EOM: EOM intact bilaterally Neck Neck: normal visual inspection Lymphatic: no lymphadenopathy noted Chest Chest: normal inspection of the chest and no tenderness Resp Effort & Inspection: normal respiratory effort Auscultation: diminished lung sounds bilaterally throughout and rhonchi upper bilaterally and lower bilaterally Cardio Rate: regular rate Rhythm: regular rhythm GI Inspection: normal to inspection Palpation: soft and nontender Auscultation: normal bowel sounds Male General Exam: Yes normal external exam Back/Spine/Pelvis Thoracic/Lumbar Spine: thoracic and lumbar spine normal to inspection Pelvis: no pain with anterior-posterior compression Skin General skin exam: no rashes or lesions noted Neuro General: patient alert, patient awake and patient oriented x3 Cognition: normal cognition Speech: speech normal Motor: muscle tone normal throughout Sensory Exam: no sensory deficits noted Extrem General: normal to inspection, full ROM and no edema Psych Appearance: grossly normal Mental Status: mental status grossly normal Speech and Movement: speech and movement normal Mood: congruent mood Affect: normal affect DS: Data Vitals/I&O Vitals and I&O: Vital Signs Temperature 36.1 C L 02/15/21 07:50 Temperature Source Tympanic 02/15/21 07:50 Pulse 73 02/15/21 07:50 Pulse Rhythm Regular 02/15/21 08:30 Pulse 86 02/13/21 15:20 Respiratory Rate 18 02/15/21 07:50 Respiratory Effort 02/15/21 08:30 Respiratory Depth Normal 02/15/21 08:30 Respiratory Pattern Normal 02/15/21 08:30 Blood Pressure 173/73 H 02/15/21 07:50 Pulse Oximetry 99 02/15/21 07:50 Oxygen Delivery Method Room Air 02/15/21 07:50 Oxygen Flow Rate 0 02/15/21 07:50 Pain Level 0 02/15/21 07:50 Intake & Output 02/14/21 02/14/21 02/15/21 11:59 23:59 11:59 Intake Total 1550 / 3100 1550 / 3100 Output Total 1000 / 2500 1500 / 2500 1150 / 1150 Balance 550 / 600 50 / 600 -1150 / -1150 Intake: IV 1050 / 2100 1050 / 2100 Oral 500 / 1000 500 / 1000 Output: Urine 1000 / 2500 1500 / 2500 1150 / 1150 Other: Urine Color Straw Yellow Urine Appearance Clear Clear Clear Stool Characteristics Soft Liquid Data Completed and Pending Labs on day of discharge: Labs from last 24 hours 02/15/21 02/15/21 09:44 09:44 WBC Pending RBC Pending Hgb Pending Hct Pending MCV Pending MCH Pending MCHC Pending RDW Pending Plt Count Pending MPV Pending Immature Gran % Pending Neutrophils % Pending Lymphocytes % Pending Monocytes % Pending Eosinophils % Pending Basophils % Pending Absolute Neutrophils Pending Absolute Lymphocytes Pending Absolute Monocytes Pending Absolute Eosinophils Pending Absolute Basophils Pending Sodium Pending Potassium Pending Chloride Pending Carbon Dioxide Pending Anion Gap Pending BUN Pending Creatinine Pending Estimated GFR/1.73 m2 Pending Glucose Pending Calcium Pending Preliminary micro results at discharge 02/13/21 10:25 Blood Culture - Preliminary Blood NO GROWTH 24 HOURS 02/13/21 10:13 Blood Culture - Preliminary Blood NO GROWTH 24 HOURS [facility] Active Problem List (Updated 02/13/21 @ 14:36 by Ofe Jordan DO) Sepsis (Acute) HCAP (healthcare-associated pneumonia) (Acute) Acute kidney injury superimposed on chronic kidney disease (Acute) Medical History (Updated 02/13/21 @ 14:36 by Ofe Jordan DO) BPH (benign prostatic hyperplasia) Chronic kidney disease COPD (chronic obstructive pulmonary disease) Dementia Diabetes DNI (do not intubate) DNR (do not resuscitate) Social History Smoking/Tobacco Use Status: Unknown Smoking risk assessment performed?: Yes
[2021-02-15] MEDS: Amoxicillin 875/Clav. 125 TAB PO (10:08)
[2021-02-15 11:24] LABS: Abs Immature Grans 0.14 10^3/uL (0.0-0.06); Absolute Basophil Count 0.02 10^3/uL (0.0-0.2); Absolute Lymphocyte Count 0.95 10^3/uL (1.2-3.4); Absolute Monocyte Count 0.85 10^3/uL (0.1-0.8); Absolute Neutrophil Count 14.79 10^3/uL (1.2-6.7); Basophils % 0.1; HGB 10.9 g/dL (13.5-17.5); Immature Grans % 0.8; Lymphocytes % 5.7; MCH 29.9 pg (27.0-33.0); MCHC 32.1 % (32.0-36.0); MCV 93.2 fL (80-95); MPV 11.3 fL (8.0-11.0); Monocytes % 5.1; Neutrophils % 88.3; Nucleated RBC 0 %; Platelet Count 207 10^3/uL (130-400); RBC 3.65 10^6/uL (4.36-5.78); RDW 13.5 % (11.8-14.1); RDW-SD 46.4 fL; WBC 16.75 10^3/uL (4.4-10.8)
[2021-02-15 11:34] LABS: Anion Gap 12.1 mmol/L (3-11); BUN 54 mg/dL (7-18); CO2 19.9 mmol/L (21.0-32.0); CREATININE 2.1 mg/dL (0.70-1.30); Calcium 8.1 mg/dL (8.5-10.1); Chloride 103 mmol/L (98-107); Estimated GFR 30.62 (mL/min/1.73m2); Glucose 274 mg/dL (74-106); Sodium 135 mmol/L (136-145)
[2021-02-15 11:59] VITALS: PULSE 60; RESP 2; RESP 22; RESP 3; RESP 6; RESP 8; O2SAT 96
--- NOTE | 2021-02-15 15:16 | PDOC.CMDIS ---
- If Service Date Differs Date of service: 02/15/21 Time of Service: 15:16 LACE Index Scoring Tool - Questions: Length of Stay (in days): 2 Acuity (Admit via E.D.?): Yes Comorbidities: Chronic Pulmonary Disease, Dementia, Liver or Renal Disease E.D. Visits: 1 - Answers: Total Score: 11 Risk of Readmission: High Risk Care Management Discharge Reason for Hospitalization: Pneumonia, possible sepsis Discharge Plan: Crow will discharge back to [facility] via facility van today. He will follow up with facility and discharge plan of care as prescribed. Patient/Family Education Needs: Review discharge instructions, limitations and plan to follow up with community providers. Discuss ask me three.
== END 2021-02-15 13:22 | disposition swing bed (61) | DRG 190 ==
LOC: ER 14:52 → MS 15:32
PROVIDERS: Nurse Practitioner Acute Care; Admitting Provider Internal Medicine; Emergency Provider Physician Assistant; PCP Family Medicine; Visit Provider Internal Medicine
DX: J44.0 Chronic obstructive pulmonary disease with (acute) lower respiratory infection (principal); J18.9 Pneumonia, unspecified organism; N17.9 Acute kidney failure, unspecified; N39.0 Urinary tract infection, site not specified; E11.22 Type 2 diabetes mellitus with diabetic chronic kidney disease; N18.9 Chronic kidney disease, unspecified; Z20.822 Contact with and (suspected) exposure to COVID-19; F03.90 Unspecified dementia, unspecified severity, without behavioral disturbance, psychotic disturbance, mood disturbance, and anxiety; N40.0 Benign prostatic hyperplasia without lower urinary tract symptoms; R09.02 Hypoxemia; Z66 Do not resuscitate; B95.2 Enterococcus as the cause of diseases classified elsewhere
CPT/HCPCS: 36415; 80048; 80053; 84145; 87040; 87077; 87081; 87635; 93005; 94640; 96361; 96365; 96375; 99285; 71045; 81003; 81015; 83605; 83735; 84484; 85025; 87086; 87186; 93010; 94760; 99223; 99233; 99239; J0131; J1815; J2930; J7512; J7620

== ENCOUNTER 2021-02-18 08:56 | Inpatient (IN) | payer MEDICARE, MEDICAID, SELFPAY ==
[2021-02-18] VITALS (40 sets, daily range): BP systolic 105–183; BP diastolic 47–90; PULSE 58–104; RESP 2–37; TEMP 36.3–36.9; O2SAT 87–100
--- NOTE | 2021-02-18 08:15 | RT.EKG_ITS ---
APPROVED REPORT Exam: Resting ECG Reason for Exam: sob Patient Location: E HR:92 bpm ECG Measurements Heart Rate 92 AXIS WA 156 P 59 QRSd 142 QRS 38 QT 380 T 37 QTc 472 Conclusion Sinus rhythm...normal P axis, V-rate 60- 99 Ventricular premature complex...V complex w/ short R-R interval Right bundle branch block...QRSd>120, terminal axis(90,270). Sinus. RBBB. No STEMI. I have reviewed and interpreted ECG and agree with software generated interpretation.
--- NOTE | 2021-02-18 08:19 | ED.GENADUL_ITS ---
Discharge Plan Disposition Patient Disposition: [facility] INPATIENT Condition: Stable Discharge Details Clinical Impression: Acute exacerbation of chronic obstructive pulmonary disease, Acute CHF Admit Date/Time: 02/18/21 11:11 Admit Provider: Violetta George Attending Provider: Violetta George Primary Care Provider: Arash Amado ED Provider: Ofe Jordan Discharge Data Discharge Date/Time-TO BE ENTERED AT DEPARTURE: 02/18/21 12:39 Medical Decision Making 0840 -- 80-year-old male with a history of COPD, diabetes, dementia who is DNR/DNI normally on supplemental O2 only as needed and status post recent admission here for pneumonia presents for increasing shortness of breath now on 2 L nasal cannula with oxygen saturation 96% per EMS. Oxygen saturation 100% on 2 L on arrival. Patient does appear to have labored breathing with wheezing throughout. Respiratory rate 30s. He is afebrile. Differential diagnosis includes acute COPD exacerbation, worsening pneumonia, acute CHF, COVID-19. Will place an IV, bolus IV fluids, screening labs, ABG, lactate, blood cultures, portable chest x-ray, Covid swab, DuoNeb, IV Solu- Medrol. Respiratory call for ABG and consideration for BiPAP if patient does not respond to DuoNeb. 0930 -- labs reviewed. White blood cell count 20, was 16 before discharge 3 days ago. ABG notes a pH of 7.3, PCO2 40. Lactate 1.2. BNP 1033. Procalcitonin 0.8, decreased from 2.8 on recent admission. Covid negative. Patient placed on BiPAP due to increased work of breathing slightly more relaxed. RR 25. 1100 --chest x-ray negative. Patient appears much more relaxed on bipap, respiratory rate mid 20. Presentation may be due to an acute COPD exacerbation or acute CHF. Report notes that patient has not been given torsemide for 2 days, may have been held due to his recent EDGAR. Will give a dose of Lasix IV Case discussed with hospitalist who accepts patient for admission. Would like IV vancomycin and Zosyn. Medical Records Medical records reviewed: Yes I reviewed the patient's medical records. Imaging Data Radiologic Study: Radiologist's impression: XR Chest Exam date and time: 02/18/2021 9:07 AM Age: 80 years old Clinical indication: Shortness of breath TECHNIQUE: Imaging protocol: XR of the chest. Views: 1 view. COMPARISON: CR XR PORTABLE CHEST AP 02/13/2021 11:34 AM FINDINGS: Lungs: Unremarkable. No consolidation. Pleural spaces: Unremarkable. No pleural effusion. No pneumothorax. Heart/Mediastinum: The heart is not enlarged. The patient has undergone coronary bypass surgery. Bones/joints: Unremarkable. IMPRESSION: No acute cardiopulmonary abnormality. Lab Data Lab results reviewed: Yes I reviewed the patient's lab results. Labs: 02/18/21 09:01 Blood Blood Culture - Pending 02/18/21 09:01 Blood Blood Culture - Pending Laboratory Tests Range/Units 02/18/21 02/18/21 02/18/21 08:51 08:54 08:54 WBC (4.4-10.8) 10^3/uL 20.65 H RBC (4.36-5.78) 10^6/uL 4.65 Hgb (13.5-17.5) g/dL 13.7 D Hct (40.0-50.0) % 44.1 D MCV (80-95) fL 94.8 MCH (27.0-33.0) pg 29.5 MCHC (32.0-36.0) % 31.1 L RDW (11.8-14.1) % 13.6 Plt Count (130-400) 10^3/uL 289 MPV (8.0-11.0) fL 11.1 H Immature Gran % 0.8 Neutrophils % 79.3 Lymphocytes % 11.2 Monocytes % 8.6 Eosinophils % 0.0 Basophils % 0.1 Nucleated RBC % % 0 Absolute Neutrophils (1.2-6.7) 10^3/uL 16.38 H Absolute Lymphocytes (1.2-3.4) 10^3/uL 2.31 Absolute Monocytes (0.1-0.8) 10^3/uL 1.78 H Absolute Eosinophils (0.0-0.7) 10^3/uL 0.00 Absolute Basophils (0.0-0.2) 10^3/uL 0.02 RBC Morphology Normal ABG Sample Site ABG pH (7.35-7.45) ABG pCO2 (35-45) mmHg ABG pO2 (80-105) mmHg ABG HCO3 (22-26) mmol/L ABG Total CO2 (23-27) mmol/L ABG O2 Saturation (95-98) % ABG Base Excess (-2-3) mmol/L VBG Lactate (0.6-1.4) mmol/L Oxygen Liter Flow L FiO2 % Sodium (136-145) mmol/L 145 Potassium (3.5-5.1) mmol/L 4.7 Chloride (98-107) mmol/L 109 H Carbon Dioxide (21.0-32.0) mmol/L 26.6 Anion Gap (3-11) mmol/L 9.4 BUN (7-18) mg/dL 52 H Creatinine (0.70-1.30) mg/dL 1.9 H Estimated GFR/1.73 m2 (mL/min/1.73m2) 34.37 Glucose (74-106) mg/dL 230 H Calcium (8.5-10.1) mg/dL 8.8 Magnesium (1.8-2.4) mg/dL 2.3 Total Bilirubin (0.2-1.0) mg/dL 0.4 AST (15-37) U/L 19 ALT (16-63) U/L 46 Alkaline Phosphatase (46-116) U/L 129 H Troponin I (<0.06) ng/mL < 0.05 NT-Pro-B Natriuret Pep (<300) pg/mL Total Protein (6.4-8.2) g/dL 7.8 Albumin (3.4-5.0) g/dL 3.2 L Procalcitonin ng/mL COVID-19 Source Nasal/Nares SARS-CoV-2 (PCR) (Negative) Negative Range/Units 02/18/21 02/18/21 02/18/21 08:54 08:54 09:20 WBC (4.4-10.8) 10^3/uL RBC (4.36-5.78) 10^6/uL Hgb (13.5-17.5) g/dL Hct (40.0-50.0) % MCV (80-95) fL MCH (27.0-33.0) pg MCHC (32.0-36.0) % RDW (11.8-14.1) % Plt Count (130-400) 10^3/uL MPV (8.0-11.0) fL Immature Gran % Neutrophils % Lymphocytes % Monocytes % Eosinophils % Basophils % Nucleated RBC % % Absolute Neutrophils (1.2-6.7) 10^3/uL Absolute Lymphocytes (1.2-3.4) 10^3/uL Absolute Monocytes (0.1-0.8) 10^3/uL Absolute Eosinophils (0.0-0.7) 10^3/uL Absolute Basophils (0.0-0.2) 10^3/uL RBC Morphology ABG Sample Site Right Radial ABG pH (7.35-7.45) 7.36 ABG pCO2 (35-45) mmHg 40 ABG pO2 (80-105) mmHg 120 H ABG HCO3 (22-26) mmol/L 22 ABG Total CO2 (23-27) mmol/L 21 L ABG O2 Saturation (95-98) % 98 ABG Base Excess (-2-3) mmol/L -3 L VBG Lactate (0.6-1.4) mmol/L 1.2 Oxygen Liter Flow L 10/5 FiO2 % 30 Sodium (136-145) mmol/L Potassium (3.5-5.1) mmol/L Chloride (98-107) mmol/L Carbon Dioxide (21.0-32.0) mmol/L Anion Gap (3-11) mmol/L BUN (7-18) mg/dL Creatinine (0.70-1.30) mg/dL Estimated GFR/1.73 m2 (mL/min/1.73m2) Glucose (74-106) mg/dL Calcium (8.5-10.1) mg/dL Magnesium (1.8-2.4) mg/dL Total Bilirubin (0.2-1.0) mg/dL AST (15-37) U/L ALT (16-63) U/L Alkaline Phosphatase (46-116) U/L Troponin I (<0.06) ng/mL NT-Pro-B Natriuret Pep (<300) pg/mL 1033 H Total Protein (6.4-8.2) g/dL Albumin (3.4-5.0) g/dL Procalcitonin ng/mL 0.8 COVID-19 Source SARS-CoV-2 (PCR) (Negative) ECG Data Attestation: I personally reviewed and interpreted this ECG (s) as follows: Interpretation: Rate of 92, sinus, PVCs. Right bundle branch block. No STEMI. No acute change from previous EKG. HPI General Mode of arrival: ambulatory . Date/Time Provider Initiated Documentation: 02/18/21 08:59 . Limitations to Documentation: no limitations . Information obtained by: patient . HPI Narrative: Patient is a 80-year-old male with a history of COPD, diabetes, dementia, DNR/DNI from the health and rehab who presents for shortness of breath and increased work of breathing stool. EMS reports that patient was placed on 2 L nasal cannula O2 and O2 saturation was 96%. Patient was seen in the ED here a few days ago and admitted to the floor for pneumonia. He was able to be weaned off oxygen prior to discharge from the floor and was placed on O2 when his shortness of breath became worse. Covid test negative here 4 days ago. Patient not answering questions. Related Data Home Medications Medication Instructions Recorded Confirmed Fleet Enema [address] DAILY PRN 02/13/21 02/18/21 Lantus U-100 Insulin 30 unit SUBCUT DAILY 02/13/21 02/18/21 acetaminophen 650 mg PO Q6H PRN 02/13/21 02/18/21 albuterol sulfate 2.5 mg INHALATION Q4H PRN 02/13/21 02/18/21 aspirin 81 mg PO DAILY 02/13/21 02/18/21 atorvastatin 80 mg PO DAILY 02/13/21 02/18/21 bisacodyl [Dulcolax (bisacodyl)] [address] DAILY PRN 02/13/21 02/18/21 dextrose [Glucose Gel] 15 g PO DIRECTED PRN 02/13/21 02/18/21 docusate sodium [Colace] 100 mg PO BID PRN 02/13/21 02/18/21 finasteride 5 mg PO DAILY 02/13/21 02/18/21 fluticasone propionate 2 puff INHALATION BID 02/13/21 02/18/21 glucagon 1 mg IM DIRECTED PRN 02/13/21 02/18/21 insulin lispro [Humalog U-100 1 sliding scale dose SUBCUT 02/13/21 02/18/21 Insulin] USEASDIRECTD losartan 50 mg PO DAILY 02/13/21 02/18/21 magnesium hydroxide 30 ml PO QHS PRN 02/13/21 02/18/21 nitroglycerin 0.4 mg SUBLINGUAL Q5-15M PRN 02/13/21 02/18/21 potassium chloride 10 meq PO BID 02/13/21 02/18/21 risperidone 0.5 mg PO BID 02/13/21 02/18/21 sennosides [senna] 8.6 mg PO DAILY PRN 02/13/21 02/18/21 tamsulosin 0.4 mg PO DAILY 02/13/21 02/18/21 torsemide 20 mg PO DIRECTED 02/13/21 02/18/21 prednisone 40 mg PO DAILY #8 tab 02/15/21 02/18/21 amoxicillin-pot clavulanate 1 tab PO BID 02/18/21 02/18/21 [Augmentin] Previous Rx's Medication Instructions Recorded prednisone 40 mg PO DAILY #8 tab 02/15/21 Allergies Allergy/AdvReac Type Severity Reaction Status Date / Time No Known Allergies Allergy Unverified 02/18/21 10:03 General JIMMIE: 3 Review of Systems Unobtainable due to mental status COUNT INCLUDES [facility] Active Problem List (Updated 02/18/21 @ 11:25 by Ofe Jordan DO) Acute exacerbation of chronic obstructive pulmonary disease (Acute) Acute CHF (Acute) Discharge planning issues (Acute) DVT prophylaxis (Acute) IDDM (insulin dependent diabetes mellitus) (Chronic) Respiratory distress (Acute) Acute exacerbation of chronic obstructive pulmonary disease (COPD) (Acute) Sepsis (Acute) HCAP (healthcare-associated pneumonia) (Acute) Acute kidney injury superimposed on chronic kidney disease (Acute) Medical History (Updated 02/18/21 @ 11:25 by Ofe Jordan DO) BPH (benign prostatic hyperplasia) Chronic kidney disease COPD (chronic obstructive pulmonary disease) Dementia Diabetes DNI (do not intubate) DNR (do not resuscitate) Surgical History (Updated 02/18/21 @ 15:58 by Violetta George MD) Midline sternotomy scar We are obtaining further surgical history to explain this Family History (Updated 02/18/21 @ 15:59 by Violetta George MD) Other Family history unobtainable due to patient's condition Social History Smoking/Tobacco Use Status: Unknown Smoking risk assessment performed?: Yes Do you feel safe at home: Yes (H&R) Do you feel safe in your relationship?: Yes Exam Const General: in distress respiratory (tachypneic) Nutritional Appearance: average body habitus [facility] Head: normal to inspection Face and sinus: normal facial exam Mouth: mucous membranes dry Eyes General: appearance normal, both eyes and all related structures EOM: EOM intact bilaterally Neck Neck: normal visual inspection and No submandibular swelling Lymphatic: no lymphadenopathy noted Chest Chest: normal inspection of the chest and no tenderness Resp Effort & Inspection: labored Auscultation: rhonchi (scattered) and wheezes lower bilaterally and upper bilaterally Cardio Rate: regular rate Rhythm: regular rhythm GI Inspection: normal to inspection Palpation: soft, not firm, not rigid and nontender Auscultation: normal bowel sounds Skin General skin exam: no rashes or lesions noted Neuro General: patient awake Motor: muscle tone normal throughout Sensory Exam: no sensory deficits noted Extrem General: normal to inspection, full ROM, capillary refill normal, no calf tenderness bilaterally and no edema Psych Appearance: grossly normal Mental Status: mental status grossly normal Affect: normal affect
--- NOTE | 2021-02-18 09:00 | DI.RAD_ITS ---
Exam(s) XR PORTABLE CHEST AP EXAM: XR PORTABLE CHEST AP CLINICAL HISTORY: shortness of breath, r/o acute disease. TECHNIQUE: 2D digital imaging was performed. COMPARISON: Prior chest x-ray 02/13/2021 FINDINGS: Chest leads in place. Sternotomy wires and evidence of previous CABG again noted. The mediastinum is not widened. Right lung is clear. There is subsegmental platelike atelectasis in left lung base. No pleural effu sions. No pulmonary edema. IMPRESSION: There is subsegmental platelike atelectasis in left lung base. Sternotomy and CABG. No pulmonary edema. DATA REPOSITORY: RADIATION DOSE DELIVERED: All CT scans at this facility use at least one of these dose optimization techniques: automated exposure control; mA and/or kV adjustment per patient size (includes targeted e xams where dose is matched to clinical indication); or iterative reconstruction.
[2021-02-18 09:04] LABS: Source Nasal/Nares
[2021-02-18 09:10] LABS: Abs Immature Grans 0.16 10^3/uL (0.0-0.06); Absolute Lymphocyte Count 2.31 10^3/uL (1.2-3.4); Absolute Monocyte Count 1.78 10^3/uL (0.1-0.8); Basophils % 0.1; HCT 44.1 % (40.0-50.0); HGB 13.7 g/dL (13.5-17.5); Immature Grans % 0.8; Lymphocytes % 11.2; MCH 29.5 pg (27.0-33.0); MCHC 31.1 % (32.0-36.0); MCV 94.8 fL (80-95); MPV 11.1 fL (8.0-11.0); Monocytes % 8.6; Nucleated RBC 0 %; Platelet Count 289 10^3/uL (130-400); RBC 4.65 10^6/uL (4.36-5.78); RDW 13.6 % (11.8-14.1); RDW-SD 47.7 fL; WBC 20.65 10^3/uL (4.4-10.8)
[2021-02-18] MEDS: Albuterol/Ipratropium 3 ML UPD VIAL (09:10)
[2021-02-18 09:13] LABS: Absolute Basophil Count 0.02 10^3/uL (0.0-0.2); Absolute Neutrophil Count 16.38 10^3/uL (1.2-6.7)
[2021-02-18 09:14] LABS: Lactate 1.2 mmol/L (0.6-1.4)
[2021-02-18] MEDS: Normal Saline 500 ML IV (09:16)
[2021-02-18] MEDS: methylPREDNISolone SUCC 125 MG VIAL IVP (09:16)
[2021-02-18 09:22] LABS: BE -3 mmol/L (-2-3); HCO3 22 mmol/L (22-26); pCO2 40 mmHg (35-45); pH 7.36 (7.35-7.45); pO2 120 mmHg (80-105); sO2 98 % (95-98); tCO2 21 mmol/L (23-27)
[2021-02-18 09:24] LABS: FIO2 30 %; Site Right Radial
[2021-02-18] MEDS: LORazepam 2 MG/ML VIAL 0.5 MG IVP (09:31)
[2021-02-18 09:35] LABS: Diff Comment Diff Reviewed; Neutrophils % 79.3
[2021-02-18 09:36] LABS: RBC Morphology Normal
[2021-02-18 09:41] LABS: ALT 46 U/L (16-63); AST 19 U/L (15-37); Albumin 3.2 g/dL (3.4-5.0); Alkaline Phosphatase 129 U/L (46-116); Anion Gap 9.4 mmol/L (3-11); BUN 52 mg/dL (7-18); Bilirubin, Total 0.4 mg/dL (0.2-1.0); CO2 26.6 mmol/L (21.0-32.0); CREATININE 1.9 mg/dL (0.70-1.30); Calcium 8.8 mg/dL (8.5-10.1); Chloride 109 mmol/L (98-107); Estimated GFR 34.37 (mL/min/1.73m2); Glucose 230 mg/dL (74-106); Magnesium 2.3 mg/dL (1.8-2.4); Potassium 4.7 mmol/L (3.5-5.1); Sodium 145 mmol/L (136-145); Total Protein 7.8 g/dL (6.4-8.2); Troponin I < 0.05 ng/mL (<0.06)
[2021-02-18 09:42] LABS: NT-proBNP 1033 pg/mL (<300)
[2021-02-18 09:50] LABS: Procalcitonin 0.8 ng/mL
[2021-02-18 10:20] LABS: COVID-19 PCR Negative (Negative)
--- NOTE | 2021-02-18 10:39 | DI.VRAD_ITS ---
PROCEDURE INFORMATION: Exam: XR Chest Exam date and time: 02/18/2021 9:07 AM Age: 80 years old Clinical indication: Shortness of breath TECHNIQUE: Imaging protocol: XR of the chest. Views: 1 view. COMPARISON: CR XR PORTABLE CHEST AP 02/13/2021 11:34 AM FINDINGS: Lungs: Unremarkable. No consolidation. Pleural spaces: Unremarkable. No pleural effusion. No pneumothorax. Heart/Mediastinum: The heart is not enlarged. The patient has undergone coronary bypass surgery. Bones/joints: Unremarkable. IMPRESSION: No acute cardiopulmonary abnormality. Dictated and Authenticated by: Gabriel Collins MD. Ordering:YUN Thakur MD
--- NOTE | 2021-02-18 11:16 | HPE_ITS ---
Date of service: 02/18/21 Assessment and Plan Assessment and plan (1) Respiratory distress: Status: Acute Assessment and plan: Due to a combination of COPD exacerbation and fluid overload. No longer requiring BiPAp as has improved since arrival from the ED. Will monitor respiratory status on RA. Treat COPD exacerbations as well as CHF as above (2) Acute exacerbation of chronic obstructive pulmonary disease (COPD): Status: Acute Assessment and plan: With evidence of a bacterial process. Continue abx, steroids, nebs initiated in the ED. Check MRSA nares. (3) Acute CHF: Status: Acute Assessment and plan: Clinically, I feel the patient is ready to be switched back to outpatient dose of torsemide. (4) IDDM (insulin dependent diabetes mellitus): Status: Chronic Assessment and plan: Cover with SSI until it is known how much the patient is able to eat (5) Chronic kidney disease: Assessment and plan: Cr is better than on prior admission, but unfortunately I do not know if it is his baseline. Will obtain outpatient records.Obtain UA. Monitor Cr with diuresis. (6) DVT prophylaxis: Status: Acute Assessment and plan: SC enoxaparin (7) Discharge planning issues: Status: Acute Assessment and plan: DNR/DNI PT, speech, and palliative care consults History of Present Illness History of Present Illness Chief Complaint: shortness of breath, increased work of breathing Narrative: Mr Naylor is a 80 year old male with PMHx of IDDM2, O2- requiring COPD (2L prn), CAD, CHF (?EF), CKD, HTN, BPH, dementia, who was discharged from our facility to [facility] on 02/15/21 after an admisson for HCAP, who was sent to [facility] ED today for worsening work of breathing/respiratory distress. In the ED, he was placed on BiPAP to help with the work of breathing. His workup is consistent with COPD exacerbation with a fluid overload component. He was initiated on steroids, nebulizer treatments, empiric antibiotics given leucocytosis and elevated procalcitonin, as well as diuresis. Hospitalist admission was requested. The patient since then has come off of BiPAP and has been transitioned to room air. Neither in the ED nor on my visit with him has he been verbal, but he does wake up enough to moan. Review of Systems Unobtainable due to mental status [facility] Active Problem List (Updated 02/18/21 @ 11:25 by Ofe Jordan DO) Acute exacerbation of chronic obstructive pulmonary disease (Acute) Acute CHF (Acute) Discharge planning issues (Acute) DVT prophylaxis (Acute) IDDM (insulin dependent diabetes mellitus) (Chronic) Respiratory distress (Acute) Acute exacerbation of chronic obstructive pulmonary disease (COPD) (Acute) Sepsis (Acute) HCAP (healthcare-associated pneumonia) (Acute) Acute kidney injury superimposed on chronic kidney disease (Acute) Medical History (Updated 02/18/21 @ 11:25 by Ofe Jordan DO) BPH (benign prostatic hyperplasia) Chronic kidney disease COPD (chronic obstructive pulmonary disease) Dementia Diabetes DNI (do not intubate) DNR (do not resuscitate) Surgical History (Updated 02/18/21 @ 15:58 by Violetta George MD) Midline sternotomy scar We are obtaining further surgical history to explain this Family History (Updated 02/18/21 @ 15:59 by Violetta George MD) Other Family history unobtainable due to patient's condition Social History Smoking/Tobacco Use Status: Unknown Smoking risk assessment performed?: Yes Do you feel safe at home: Yes (H&R) Do you feel safe in your relationship?: Yes Meds Allergies and Home Medications Allergies Allergy/AdvReac Type Severity Reaction Status Date / Time No Known Allergies Allergy Unverified 02/18/21 10:03 Home Medications Medication Instructions Recorded Confirmed Type Fleet Enema 118 ml CO DAILY PRN 02/13/21 02/18/21 History Lantus U-100 Insulin 30 unit SUBCUT DAILY 02/13/21 02/18/21 History acetaminophen 650 mg PO Q6H PRN 02/13/21 02/18/21 History albuterol sulfate 2.5 mg INHALATION Q4H PRN 02/13/21 02/18/21 History aspirin 81 mg PO DAILY 02/13/21 02/18/21 History atorvastatin 80 mg PO DAILY 02/13/21 02/18/21 History bisacodyl [Dulcolax (bisacodyl)] 10 mg CO DAILY PRN 02/13/21 02/18/21 History dextrose [Glucose Gel] 15 g PO DIRECTED PRN 02/13/21 02/18/21 History docusate sodium [Colace] 100 mg PO BID PRN 02/13/21 02/18/21 History finasteride 5 mg PO DAILY 02/13/21 02/18/21 History fluticasone propionate 2 puff INHALATION BID 02/13/21 02/18/21 History glucagon 1 mg IM DIRECTED PRN 02/13/21 02/18/21 History insulin lispro [Humalog U-100 1 sliding scale dose SUBCUT 02/13/21 02/18/21 History Insulin] USEASDIRECTD losartan 50 mg PO DAILY 02/13/21 02/18/21 History magnesium hydroxide 30 ml PO QHS PRN 02/13/21 02/18/21 History nitroglycerin 0.4 mg SUBLINGUAL Q5-15M PRN 02/13/21 02/18/21 History potassium chloride 10 meq PO BID 02/13/21 02/18/21 History risperidone 0.5 mg PO BID 02/13/21 02/18/21 History sennosides [senna] 8.6 mg PO DAILY PRN 02/13/21 02/18/21 History tamsulosin 0.4 mg PO DAILY 02/13/21 02/18/21 History torsemide 20 mg PO DIRECTED 02/13/21 02/18/21 History prednisone 40 mg PO DAILY #8 tab 02/15/21 02/18/21 Rx amoxicillin-pot clavulanate 1 tab PO BID 02/18/21 02/18/21 History [Augmentin] Exam Narrative Exam Narrative: General: Elderly male who was snoring without any evidence of respiratory distress when I arrived in his room, asleep, wakes up to painful stimuli only - moans, nonverbal, not following commands Neurological: Lethargic, arousable only to painful stimuli, moaning, not following commands, no obvious focal deficits Psychiatric: unable to assess at this time Skin: Visible skin intact; evidence of midline sternotomy scar - well healed HEENT: Eyes closed, resists to me trying to open them; does not open them voluntarily, unable to examine extraocular movements, Not opening mouth voluntarily, no goiter, lymphadenopathy, or JVD Cardiovascular: RRR, no m/r/g Lungs: faint rhonchi B Gastrointestinal: soft, nontender, nondistended Genitourinary: has a castillo catheter Extremities: no edema BLE's Results Imaging Additional studies: CXR: No acute cardiopulmonary abnormality. EKG: SR with PVCs, RBBB, HR 92, no acute ischemia. RBBB is old Labs Result diagrams: 02/18/21 08:54 02/18/21 08:54 Labs: Laboratory Results - last 24 hr 02/18/21 02/18/21 02/18/21 08:51 08:54 08:54 WBC 20.65 H RBC 4.65 Hgb 13.7 D Hct 44.1 D MCV 94.8 MCH 29.5 MCHC 31.1 L RDW 13.6 Plt Count 289 MPV 11.1 H Immature Gran % 0.8 Neutrophils % 79.3 Lymphocytes % 11.2 Monocytes % 8.6 Eosinophils % 0.0 Basophils % 0.1 Nucleated RBC % 0 Absolute Neutrophils 16.38 H Absolute Lymphocytes 2.31 Absolute Monocytes 1.78 H Absolute Eosinophils 0.00 Absolute Basophils 0.02 RBC Morphology Normal ABG Sample Site ABG pH ABG pCO2 ABG pO2 ABG HCO3 ABG Total CO2 ABG O2 Saturation ABG Base Excess VBG Lactate Oxygen Liter Flow FiO2 Sodium 145 Potassium 4.7 Chloride 109 H Carbon Dioxide 26.6 Anion Gap 9.4 BUN 52 H Creatinine 1.9 H Estimated GFR/1.73 m2 34.37 Glucose 230 H Calcium 8.8 Magnesium 2.3 Total Bilirubin 0.4 AST 19 ALT 46 Alkaline Phosphatase 129 H Troponin I < 0.05 NT-Pro-B Natriuret Pep Total Protein 7.8 Albumin 3.2 L Procalcitonin COVID-19 Source Nasal/Nares SARS-CoV-2 (PCR) Negative 02/18/21 02/18/21 02/18/21 08:54 08:54 09:20 WBC RBC Hgb Hct MCV MCH MCHC RDW Plt Count MPV Immature Gran % Neutrophils % Lymphocytes % Monocytes % Eosinophils % Basophils % Nucleated RBC % Absolute Neutrophils Absolute Lymphocytes Absolute Monocytes Absolute Eosinophils Absolute Basophils RBC Morphology ABG Sample Site Right Radial ABG pH 7.36 ABG pCO2 40 ABG pO2 120 H ABG HCO3 22 ABG Total CO2 21 L ABG O2 Saturation 98 ABG Base Excess -3 L VBG Lactate 1.2 Oxygen Liter Flow 10/5 FiO2 30 Sodium Potassium Chloride Carbon Dioxide Anion Gap BUN Creatinine Estimated GFR/1.73 m2 Glucose Calcium Magnesium Total Bilirubin AST ALT Alkaline Phosphatase Troponin I NT-Pro-B Natriuret Pep 1033 H Total Protein Albumin Procalcitonin 0.8 COVID-19 Source SARS-CoV-2 (PCR) Last Vital Signs Temp 36.7 C 02/18/21 08:39 Pulse 66 02/18/21 09:46 Resp 19 02/18/21 09:46 BP 105/49 L 02/18/21 09:46 Pulse Ox 95 02/18/21 09:46
[2021-02-18] MEDS: PIPERACILLIN/TAZO 3.375 GM in Normal Saline 50 ML IVPB ×3 (11:34→23:10)
--- NOTE | 2021-02-18 12:43 | NT_ITS ---
Date of service: 02/18/21 Time of Service: 12:43 PT Notes Visit Reasons: Acute Exacerbation of COPD,Respiratory Distress Attempted several times to rouse patient up but was unable to stay awake for PT evalaution. Nurse Michelle was present inside the room during these attempts. Nurse Holt pointed out that patient only had 0.5 mg of Ativan mid morning today. She and Nurse Director Payment Stephany recommended seeing patient tomorrow so he may be be more able to participate. Will plan on seeing patient tomorrow for evaluation, as ordered. Thank you for the opportunity to participate in the care of this patient. Nela Paige PT, DPT, CLT [facility] [place], [place]
[2021-02-18] MEDS: Enoxaparin 30 MG/0.3 ML SYR SC (12:45)
[2021-02-18] MEDS: Furosemide 20 MG/2 ML VIAL IVP (12:45)
[2021-02-18] MEDS: VANCOMYCIN/WATER (PEG) 1.25 GM/250 ML BAG IV (12:45)
[2021-02-18] MEDS: Albuterol/Ipratropium 3 ML UPD VIAL UPD ×3 (13:19→23:00)
[2021-02-18] MEDS: Normal Saline Flush 10 ML SYR IVP ×2 (13:21→17:04)
[2021-02-18] MEDS: Insulin Aspart 300 UNITS/3 ML PEN SC ×3 (14:14→23:00)
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
[2021-02-18 18:58] LABS: Bilirubin Negative (Negative); Blood Small (Negative); Clarity Clear (Clear); Glucose 250 mg/dL (Negative); Ketones Negative (Negative); Leukocyte Esterase Negative (Negative); Nitrite Negative (Negative); Urobilinogen 0.2 EU/dL (Up TO 0.2); pH 5.5 (5-8)
[2021-02-18 19:05] LABS: C & S Indicated? C&S Done As Ordered
[2021-02-18 19:06] LABS: Bacteria Negative HPF (Negative); Casts 0-2 Hyaline LPF (Negative); Crystals Negative HPF (Negative); Epithelial Cells Negative HPF (Negative); Mucus Negative (Negative); Other Cells Negative (Negative); RBC 0-2 HPF (0-2); WBC Negative HPF (0-5)
[2021-02-18] MEDS: risperiDONE 1 MG TAB 0.5 MG PO (21:54)
[2021-02-18] MEDS: Atorvastatin 40 MG TAB 80 MG PO (21:54)
[2021-02-19] VITALS (13 sets, daily range): BP systolic 142–174; BP diastolic 54–75; PULSE 54–89; RESP 1–22; TEMP 36.5–36.9; O2SAT 95–98
--- NOTE | 2021-02-19 | DI.CT_ITS ---
Exam(s) CT HEAD - STROKE PROTOCOL EXAM: CT HEAD - STROKE PROTOCOL CLINICAL HISTORY: L facial droop. TECHNIQUE: Imaging Protocol: Axial computed tomography images with coronal and sagittal reformatted images were created and reviewed COMPARISON: No exams were available for comparison FINDINGS: There are no skull fractures nor fluid in the visualized paranasal sinuses. There is no evidence of intracranial hemorrhage, mass effect, or shift of midline structures. There are no extra-axial fluid collections. The ventricles are not enlarged or shifted and there is no blo od within the ventricular system nor within the basal cisterns. There is a significant area of asymmetric hypodensity in the right parietal lobe subcortical white ma tter, most probably ischemic, age indeterminate. Calcification of vertebral arteries at the skull base noted as well as both internal carotid arteries within the cavernous sinuses and supraclinoid aspects. There is, however, no evidence of asymmetric hyperdense middle cerebral artery. IMPRESSION: In the right posterior parietal region there is an area of white matter hypodensity consistent with i schemic change, possibly chronic but cannot exclude superimposed more acute ischemia at this level. If clinically indicated follow-up MRI with diffusion imaging can be performed. This study 1st read by Main [facility] RADIATION DOSE DELIVERED: 735.84mGy.cm Total DLP DATA REPOSITORY: All CT scans at this facility are submitted to the National Radiology Data Registry (NRDR) Dose Index Registry (DIR) with the [employer] (A[employer]). RADIATION OPTIMIZATION: All CT scans at this facility use at least one of these dose optimization te chniques: automated exposure control; mA and/or kV adjustment per patient size (includes targeted exa ms where dose is matched to clinical indication); or iterative reconstruction.
[2021-02-19] MEDS: Albuterol/Ipratropium 3 ML UPD VIAL UPD ×3 (05:18→18:00)
[2021-02-19] MEDS: Normal Saline Flush 10 ML SYR IVP ×2 (05:19→17:54)
[2021-02-19] MEDS: PIPERACILLIN/TAZO 3.375 GM in Normal Saline 50 ML IVPB ×4 (05:19→23:52)
[2021-02-19] MEDS: VANCOMYCIN 750 MG in Normal Saline 250 ML 166.667 MG IV (06:13)
[2021-02-19 07:45] LABS: Abs Immature Grans 0.15 10^3/uL (0.0-0.06); Absolute Basophil Count 0.02 10^3/uL (0.0-0.2); Absolute Lymphocyte Count 1.53 10^3/uL (1.2-3.4); Absolute Neutrophil Count 13.16 10^3/uL (1.2-6.7); Basophils % 0.1; HGB 10.2 g/dL (13.5-17.5); Immature Grans % 0.9; Lymphocytes % 9.4; MCH 29.7 pg (27.0-33.0); MCHC 31.9 % (32.0-36.0); MPV 11.4 fL (8.0-11.0); Monocytes % 8.6; Nucleated RBC 0 %; Platelet Count 246 10^3/uL (130-400); RBC 3.44 10^6/uL (4.36-5.78); RDW 13.3 % (11.8-14.1); RDW-SD 45.8 fL; WBC 16.25 10^3/uL (4.4-10.8)
[2021-02-19 07:52] LABS: Anion Gap 13.4 mmol/L (3-11); BUN 49 mg/dL (7-18); CO2 21.6 mmol/L (21.0-32.0); Calcium 8.2 mg/dL (8.5-10.1); Chloride 106 mmol/L (98-107); Estimated GFR 32.39 (mL/min/1.73m2); Glucose 309 mg/dL (74-106); Magnesium 1.9 mg/dL (1.8-2.4); Potassium 3.7 mmol/L (3.5-5.1); Sodium 141 mmol/L (136-145)
[2021-02-19] MEDS: Losartan 50 MG TAB PO (08:08)
[2021-02-19] MEDS: Pantoprazole 40 MG TABCR PO (08:08)
[2021-02-19] MEDS: Aspirin E.C. 81 MG TABEC PO (08:08)
[2021-02-19] MEDS: Torsemide 20 MG TAB PO (08:08)
[2021-02-19] MEDS: Tamsulosin 0.4 MG CAPCR PO (08:08)
[2021-02-19] MEDS: risperiDONE 0.5 MG TAB PO ×2 (08:09→19:29)
[2021-02-19] MEDS: predniSONE 20 MG TAB 40 MG PO (08:09)
[2021-02-19] MEDS: Finasteride 5 MG TAB PO (08:10)
[2021-02-19] MEDS: Mometasone 220 MCG 14 DOSE INHALER IH ×2 (08:20→19:29)
[2021-02-19] MEDS: Insulin Glargine 300 UNITS/3 ML PEN 20 UNITS SC (08:21)
[2021-02-19] MEDS: Insulin Aspart 300 UNITS/3 ML PEN SC ×4 (08:22→21:27)
--- NOTE | 2021-02-19 10:37 | INITIAL_ITS ---
- If Service Date Differs Date of service: 02/19/21 Time of Service: 10:37 Care Management Initial Assess REASON FOR HOSPITALIZATION:: Exacerbation of COPD, respiratory distress PAST MEDICAL HISTORY/PAST SURGICAL HISTORY:: Active Problem List. Acute exacerb ation of chronic obstructive pulmonary disease (Acute). Acute CHF (Acute). Discharge planning issues (Acute). DVT prophylaxis (Acute). IDDM (insulin dependent diabetes mellitus) (Chronic). Respiratory distress (Acute). Acute exacerbation of chronic obstructive pulmonary disease (COPD) (Acute). Sepsis (Acute). HCAP (healthcare-associated pneumonia) (Acute). Acute kidney injury superimposed on chronic kidney disease (Acute). Medical History. BPH (benign prostatic hyperplasia). Chronic kidney disease. COPD (chronic obstructive pulmonary disease). Dementia. Diabetes. DNI (do not intubate). DNR (do not resuscitate). Surgical History. Midline sternotomy scar. We are obtaining further surgical history to explain this PREVIOUS FUNCTIONAL STATUS/SOCIAL/FAMILY SUPPORTS:: Crow currently resides at [facility]. He has a history of dementia. His lives in [place], [place]. CURRENT FUNCTIONAL STATUS:: Crow was sitting up in bed when CM met with him. He was alert, but did not engage well with CM. He stated my brother starts things and wants me to finish them, and it doesn't matter what you say, nothing will change. He did not answer questions appropriately, likely due to his dementia. CM was unable to fully assess due to mental status. He will likely transfer back to [facility] once he is medically cleared. CM will continue to follow. ADVANCE DIRECTIVES:: COLST form on file, HCA is Annabel Naylor () Has patient been provided with info about the portal/API?: Yes Did the patient sign up for the portal?: No CODE STATUS:: DNR/DNI INSURANCE COVERAGE / FINANCIAL ISSUES:: AARP/UN. HLTH Mcr Replacement CURRENT HOME/COMMUNITY SERVICES/EQUIPMENT:: Uses a walker, resides at [facility]. PRIMARY CARE PHYSICIAN:: Arash Amado POTENTIAL DISCHARGE NEEDS:: Coordinated return to [facility]. PATIENT/FAMILY EDUCATION NEEDS:: Review discharge instructions, limitations and plan to follow up with community providers. ask me three. ANTICIPATED BARRIERS TO DISCHARGE:: None identified. TRANSPORTATION:: Facility w/c van. PLAN:: Anticipate Crow will discharge back to [facility] via facility van when medically cleared by provider. He will follow up with community providers and discharge plan of care as prescribed.
--- NOTE | 2021-02-19 11:18 | IN_ITS ---
Date of service: 02/19/21 Time of Service: 11:18 PT Notes Visit Reasons: Acute Exacerbation of COPD,Respiratory Distress Physical Therapy Inpatient Initial Evaluation Date: 02/19/2021 Referring Doctor: Violetta George MD PT Orders: PT CONSULT: Limited ability Precautions: Fall. Standard. Activity as tolerated. Patient Profile/Admitting Diagnosis: Crow is a 80-year-old male who presented to the ED from [facility] on 02/18/2021 due to increasing shortness of breath. Patient is diagnosed with COPD exacerbation and respiratory distress. PMHX: Active Problem List (Updated 02/18/21 @ 11:25 by Ofe Jordan DO) Acute exacerbation of chronic obstructive pulmonary disease (Acute) Acute CHF (Acute) Discharge planning issues (Acute) DVT prophylaxis (Acute) IDDM (insulin dependent diabetes mellitus) (Chronic) Respiratory distress (Acute) Acute exacerbation of chronic obstructive pulmonary disease (COPD) (Acute) Sepsis (Acute) HCAP (healthcare-associated pneumonia) (Acute) Acute kidney injury superimposed on chronic kidney disease (Acute) Medical History (Updated 02/18/21 @ 11:25 by Ofe Jordan DO) BPH (benign prostatic hyperplasia) Chronic kidney disease COPD (chronic obstructive pulmonary disease) Dementia Diabetes DNI (do not intubate) DNR (do not resuscitate) Surgical History (Updated 02/18/21 @ 15:58 by Violetta George MD) Midline sternotomy scar We are obtaining further surgical history to explain this Social History/Home Situation: Resident of SNF. Equipment Owned/DME: FWW Subjective: Agreeable to getting out of bed. Reports being moderately out of breath after ambulation activity. Denies headache, chest pain, and lightheadedness during session. Objective: General Observation: Supine in bed. Salguero catheter in place. IV accesses in B UE. Mental Status: More alert than he was yesterday on initial attempt at evaluation. Able to follow single step directions. Speech not fully intelligible. Pain: 0/10 Vital Signs: After ambulation of 100 feet 143/66 mmHg, 85 bpm, 98% on RA. ROM: Right Upper Extremity: Shoulder Flexion WFL. Shoulder abduction WFL. Elbow flexion WFL. Wrist flexion WFL. Functional opening and closing of hand WFL. Left Upper Extremity: Shoulder Flexion WFL. Shoulder abduction WFL. Elbow flexion WFL. Wrist flexion WFL. Functional opening and closing of hand WFL. Right Lower Extremity: Hip flexion WFL. Hip abduction WFL. Knee flexion WFL. Ankle dorsiflexion to neutral only WFL. Ankle plantarflexion WFL. Left Lower Extremity: Hip flexion WFL. Hip abduction WFL. Knee flexion WFL. Ankle dorsiflexion to neutral only. Ankle plantarflexion WFL. Strength: Right Upper Extremity: Shoulder flexors 4-/5. Shoulder abductors 4-/5. Elbow flexors 4-/5. Elbow extensors 4-/5. Custom Decorating Consultant strong. Left Upper Extremity: Shoulder flexors 4-/5. Shoulder abductors 4-/5. Elbow flexors 4-/5. Elbow extensors 4-/5. Custom Decorating Consultant strong. Right Lower Extremity: Hip flexors 3+/5. Hip abductors 4-/5. Knee flexors 4-/5. Knee extensors 4-/5. Ankle dorsiflexors 3-/5. Ankle plantarflexors 5/5. Left Lower Extremity: Hip flexors 3+/5. Hip abductors 4-/5. Knee flexors 4-/5. Knee extensors 4-/5. Ankle dorsiflexors 3-/5. Ankle plantarflexors 5/5. Bed Mobility/Transfers: Supine to sit with minimal assist with HOB at 30 degrees Sit to stand with contact-guard assist Stand to sit with contact-guard assist Bed to reclining chair with assist Gait: Instructed patient with level surface ambulation of 100 feet +100 feet requiring contact-guard assist. Erna decreased. Step height decreased. Step length decreased. Wheelchair follow provided for safety. Trunk slightly tilted to the right, mild plantar flexed. Moderate shortness of breath after ambulation activity. No LOB. Balance: Static Sitting: Good Dynamic Sitting: Fair Static Standing: Fair Dynamic Standing: Fair Special Tests: Mobility Limitations Standardized Measure [facility] AM-PAC 6 clicks Basic Mobility Inpatient Short Form: Raw Score: 17 CMS Score: 51% deficit Informed Consent/Education: Patient was instructed in purpose of PT consult and plan of care. Agreeable to proceed with established PT POC to achieve personal goals. Assessment: Requires assist of 1 and the use of front wheeled walker for all mobility ADL performance to reduce fall risk. Moderate shortness of breath exhibited after ambulation activity with recovery after 3 to 5 minutes of rest. Oxygen saturation maintained at above 95% on room air even with activity. BUE/LE patient presents with clinical signs and symptoms consistent with curren t/admitting diagnoses that have resulted to mobility limitations, gait instability, generalized weakness, and overall ADL decline as demonstrated by the following impairment level findings: 1. Decreased strength to major muscle groups 2. Impaired standing balance 3. Impaired activity tolerance 4. Limitation of joint range of motion in B dorsiflexion (chronic) 5. Shortness of breath Impairments are contributing to the following functional limitations: 1. Decline in bed mobility skills 2. Decline in transfer skills 3. Difficulty with ambulation without assistive device and physical assistance 4. Increased completion time for mobility ADL performance 5. Increased risk for falls 6. Difficulty with managing steps alone safely Patient is assessed [place] a 46496 moderate complexity based on the following: History: 80-year-old male with past medical history as indicated above Examination: Demonstrable impairment in strength, balance, and mobility level with underlying impairments and functional limitations as exhibited above as well as deficit score of 51% utilizing the [facility] Mobility Inpatient Short Form Presentation: Evolving Decision Makin moderate complexity Goals: Goals X1 week 1. Supine-Sit supervision 2. Sit-Supine supervision 3. Sit-Stand supervision 4. Stand-Sit standby assist with FWW 5. Bed-Chair standby assist with FWW 6. Chair-Bed standby assist with FWW 7. Standby assist gait on level surface with use of [] for at least [] feet without report of pain nor dyspnea 8. Good static and dynamic standing balance/tolerance Plan of Care/Treatment Plan: 1-2x/day, 7 days/week x 1 week. Plan of care has been reviewed with the [employer]ENTITY MANAGEMENT CONSULTANT providing the service under Physical Therapy direction. Initiate Physical Therapy intervention for pain management as needed, strengthening, bed mobility, transfers, gait, stairs, balance training, and use of assistive device. DISCHARGE RECOMMENDATIONS: [] Home with no services [] [] Home with services [specify] [] Home with outpatient PT [] [] SNF for continued rehabilitation [] [X] Half-Way Care. Return to SNF when medically cleared by hospitalist. Continue physical therapy to maximize mobility level using front wheeled walker. [] SNF versus LTC based on ability to participate and progress [] TREATMENT CODE/TIME: 36990 x 20 minutes, 92084 x 17 minutes beginning at 11:18 AM. Thank you for the opportunity to participate in the care of this patient. Nela Paige PT, DPT, CLT [facility] [place], [place]
[2021-02-19] MEDS: Enoxaparin 30 MG/0.3 ML SYR SC (12:19)
--- NOTE | 2021-02-19 14:48 | PGE_ITS ---
Date of Service Date of service: 02/19/21 Time of Service: 14:49 Assessment and Plan Assessment and plan (1) Weakness on left side of face: Status: Acute Assessment and plan: We have attempted but not been successful in establishing contact with [facility] today to confirm if the patient has a baseline facial droop. The tiny photo that got faxed as part of his medical records appears to show this. I did not clearly see this on my exam yesterday, but the patient was laying flat in bed. He does not seem to have any other focal deficits today. There is an H&P that was part of the packet of medical records sent to us from [facility], which was written in 01/2021, which says no facial droop. The patient did require assistance with feeding himself with his RUE on his last admission here. 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 Obtain CT head and will plan for echo and MRI/MRA brain/neck tomorrow. He is already on baby asa and high dose statin. Monitor on tele with neurochecks. If MRI positive, will obtain neuro consult. Obtain OT and speech therapy consults. (2) Respiratory distress: Status: Resolved Assessment and plan: Due to a combination of COPD exacerbation and fluid overload. Continue to treat COPD exacerbations as well as CHF. (3) Acute exacerbation of chronic obstructive pulmonary disease (COPD): Status: Acute Assessment and plan: With evidence of a bacterial process. Continue abx, steroids, nebs initiated in the ED. Await MRSA nares. (4) Acute CHF: Status: Acute Assessment and plan: Continue home torsemide. (5) IDDM (insulin dependent diabetes mellitus): Status: Chronic Assessment and plan: Resume outpatient lantus; continue SSI (6) Chronic kidney disease: Assessment and plan: Baseline Cr closer to 1.5, per medical records sent from [facility]. Monitor while diuresing. (7) DVT prophylaxis: Status: Acute Assessment and plan: SC enoxaparin (8) Discharge planning issues: Status: Acute Assessment and plan: DNR/DNI PT, OT, speech, and palliative care consults Subjective Subjective Interval history since last seen: Im just tired, that's all. Mr Naylor has been awake and talking since this am. He participated in PT eval - no focal deficits noted then. The patient does not know if he usually has a facial droop on the left side. Nursing recalls that on his last admission here, the patient required assistance with cutting up food and had difficulty feeding himself with his right hand. Exam Narrative Exam Narrative: General: Elderly male, who is awake, A&Ox3 (thinks it is January, but then corrects himself that it is February of 2021), sitting comfortably in a chair Neurological: A&Ox3, CN II-XII intact except for L facial droop, poor dentition, strength 4/5 throughout, no sensory deficits HEENT: Atraumatic, normocephalic, EOMI, MMM, L facial droop Cardiovascular: RRR, no m/r/g Lungs: faint rhonchi and rales B, overall sounds better than yesterday Gastrointestinal: soft, nontender, nondistended Genitourinary: has a castillo catheter Extremities: no edema BLE's Objective Last Vital Signs Temp 36.8 C 02/19/21 14:22 Pulse 73 02/19/21 14:22 Resp 22 02/19/21 14:22 BP 170/75 H 02/19/21 14:22 Pulse Ox 96 02/19/21 14:22 Laboratory Results - last 24 hr 02/18/21 02/19/21 02/19/21 18:00 07:00 07:00 WBC 16.25 H RBC 3.44 L Hgb 10.2 L D Hct 32.0 L D MCV 93.0 MCH 29.7 MCHC 31.9 L RDW 13.3 Plt Count 246 MPV 11.4 H Immature Gran % 0.9 Neutrophils % 81.0 Lymphocytes % 9.4 Monocytes % 8.6 Eosinophils % 0.0 Basophils % 0.1 Nucleated RBC % 0 Absolute Neutrophils 13.16 H Absolute Lymphocytes 1.53 Absolute Monocytes 1.40 H Absolute Eosinophils 0.00 Absolute Basophils 0.02 Sodium 141 Potassium 3.7 D Chloride 106 Carbon Dioxide 21.6 Anion Gap 13.4 H BUN 49 H Creatinine 2.0 H Estimated GFR/1.73 m2 32.39 Glucose 309 H Calcium 8.2 L Magnesium 1.9 Urine Color Yellow Urine Clarity Clear Urine pH 5.5 Ur Specific [place] 1.020 Urine Protein Negative Urine Ketones Negative Urine Blood Small H Urine Nitrite Negative Urine Bilirubin Negative Urine Urobilinogen 0.2 Ur Leukocyte Esterase Negative Urine RBC 0-2 Urine WBC Negative Ur Epithelial Cells Negative Urine Crystals Negative Urine Bacteria Negative Urine Casts 0-2 Hyaline Urine Mucus Negative Urine Other Negative Ur Culture Indicated? C&S Done As Ordered Urine Glucose 250 H
--- NOTE | 2021-02-19 15:21 | DI.VRAD_ITS ---
PROCEDURE INFORMATION: Exam: CT Head Without Contrast Exam date and time: 02/19/2021 2:34 PM Age: 80 years old Clinical indication: Other: L facial droop TECHNIQUE: Imaging protocol: Computed tomography of the head without contrast. Other technique: STROKE PROTOCOL was implemented. COMPARISON: No relevant prior studies available. FINDINGS: Brain: No intracranial hemorrhage. No mass or midline shift. Mild periventricular and subcortical white matter hypoattenuation, nonspecific but consistent with chronic microvascular ischemic disease. Hypoattenuation in the RIGHT posterior parietal lobe likely represents chronic ischemic change. The possibility of superimposed acute infarction is not entirely excluded. Manley-white differentiation otherwise unremarkable. No extra-axial collections. Cerebral ventricles: The ventricles are normal in position and mildly enlarged. There is commensurate cortical sulcal prominence. The findings are consistent with age appropriate cerebral atrophy. No hydrocephalus. Paranasal sinuses: Mild bilateral ethmoid sinus mucoperiosteal thickening. No air-fluid levels. Mastoid air cells: The tympanomastoid air cells are normally aerated as visualized. Auditory system: Extensive soft tissue density in the external auditory canals likely ceruminous. Orbital cavity: The [place] lenses are absent. The orbits are otherwise unremarkable as visualized. Vasculature: Intracranial arterial calcification is present. Bones/joints: No acute fracture. No focal osseous lesions. Soft tissues: The soft tissues are unremarkable. IMPRESSION: 1. Hypoattenuation in the RIGHT posterior parietal lobe likely chronic ischemic change. The possibility of superimposed acute infarction is not entirely excluded. MRI of the brain include diffusion-weighted images could be further assessment. 2. Additional incidental/nonemergent findings as discussed above. ASSESSMENT: ASPECTS ([place] Stroke Program Early CT Score) is 10. Dictated and Authenticated by: Rayne Gonzalez MD. Ordering:CHRISTINE Shipley MD
[2021-02-19 17:37] LABS: Glucose 386 mg/dL (74-106)
[2021-02-19] MEDS: Atorvastatin 40 MG TAB 80 MG PO (19:29)
[2021-02-20] VITALS (8 sets, daily range): BP systolic 145–188; BP diastolic 66–84; PULSE 69–89; RESP 16–23; TEMP 36.4–36.8; O2SAT 94–98
[2021-02-20] MEDS: Albuterol/Ipratropium 3 ML UPD VIAL UPD ×3 (00:02→23:55)
[2021-02-20] MEDS: VANCOMYCIN 750 MG in Normal Saline 250 ML 166.667 MG IV (01:57)
[2021-02-20] MEDS: Haloperidol 1 MG TAB 4 MG PO (04:21)
[2021-02-20 06:38] LABS: Abs Immature Grans 0.14 10^3/uL (0.0-0.06); Absolute Basophil Count 0.01 10^3/uL (0.0-0.2); Absolute Lymphocyte Count 2.47 10^3/uL (1.2-3.4); Absolute Monocyte Count 1.45 10^3/uL (0.1-0.8); Basophils % 0.1; HGB 9.6 g/dL (13.5-17.5); Immature Grans % 1.1; Lymphocytes % 18.7; MCH 29.5 pg (27.0-33.0); MCV 92.3 fL (80-95); MPV 11.1 fL (8.0-11.0); Neutrophils % 69.1; Nucleated RBC 0 %; Platelet Count 225 10^3/uL (130-400); RBC 3.25 10^6/uL (4.36-5.78); RDW 13.1 % (11.8-14.1); RDW-SD 44.2 fL; WBC 13.21 10^3/uL (4.4-10.8)
[2021-02-20 06:43] LABS: Absolute Neutrophil Count 9.13 10^3/uL (1.2-6.7)
[2021-02-20 06:47] LABS: Anion Gap 10.6 mmol/L (3-11); BUN 38 mg/dL (7-18); CO2 22.4 mmol/L (21.0-32.0); CREATININE 1.9 mg/dL (0.70-1.30); Calcium 7.8 mg/dL (8.5-10.1); Chloride 106 mmol/L (98-107); Estimated GFR 34.37 (mL/min/1.73m2); Glucose 308 mg/dL (74-106); Magnesium 1.9 mg/dL (1.8-2.4); Potassium 3.2 mmol/L (3.5-5.1); Sodium 139 mmol/L (136-145)
[2021-02-20] MEDS: Tamsulosin 0.4 MG CAPCR PO (08:00)
[2021-02-20] MEDS: Aspirin E.C. 81 MG TABEC PO (08:00)
--- NOTE | 2021-02-20 08:00 | DI.MRI_ITS ---
Exam(s) MR ANGIO NECK WO EXAM: MAGNETIC RESONANCE ANGIOGRAPHY OF THE NECK CLINICAL HISTORY: L facial droop. TECHNIQUE: MRA carotid arteries in the neck performed [id number] sequence (no IV contrast) CONTRAST MATERIAL: None COMPARISON: Recent CT scan was reviewed. Also recent MRI. FINDINGS: Study quality is less than optimal. Apparently this somewhat unresponsive patient was not able to ho ld still and follow instructions. ANTERIOR CIRCULATION: The common carotid arteries are patent. Mild stenosis seen in the proximal internal carotid arteries bilaterally. No obvious critical stenosis evident at this level on either side. Both internal carotid arteries are also demonstrated to be patent higher up in the neck as well as wi thin the skull base. POSTERIOR CIRCULATION: There is poor flow signal evident in the vertebral arteries, particularly on the left side. Left vertebral artery does not exhibit flow signal proximally, only in the upper aspect of the neck. Right vertebral artery is a thin vessel. At the skull base there is absence of normal flow signal at the origin of the basilar artery. IMPRESSION: Suboptimal but abnormal study, particularly with regards to the posterior circulation, as described yanna kimble. Recommend follow-up CT angiography of the head and neck. DATA REPOSITORY:
--- NOTE | 2021-02-20 08:00 | DI.MRI_ITS ---
Exam(s) MR BRAIN WO EXAM: MR BRAIN WO CLINICAL HISTORY: L facial droop TECHNIQUE: Multiplanar multisequence MRI of the brain was performed. COMPARISON: CT CT HEAD - STROKE PROTOCOL from 02/19/2021 FINDINGS: CEREBRAL PARENCHYMA: There is no evidence of intracranial hemorrhage, mass effect, or shift of midline structures. There are no extra-axial fluid collections. Ventricular size is not out of proportion when compared to the overlying cortical sulci. There is FLAIR bright area of signal abnormality in the subcortical white matter right parietal lobe, this corresponding to what was described on the recent CT scan. However, this area does not restric janusz diffusion on DWI and therefore probably sequelae a non recent ischemic event at this level. There is no prominent abnormal signal abnormality in the periventricular white matter. PITUITARY GLAND: No mass nor parasellar abnormality. No obvious abnormality in the cavernous sinuses. FLOW VOIDS: The expected flow void are noted. No evidence of obvious aneurysm nor obvious vascular ma lformation. PARANASAL SINUSES: The visualized paranasal sinuses appear unremarkable. No obvious finding ORBITS: No obvious findings. IMPRESSION: Area of signal abnormality in the right parietal lobe as described above, not exhibiting restricted d iffusion and therefore most probably sequelae of non recent ischemic event at this location. DATA REPOSITORY:
--- NOTE | 2021-02-20 08:00 | DI.US_ITS ---
APPROVED REPORT EXAM: Comprehensive 2D, Doppler, and color-flow Echocardiogram Patient Location: In-Patient Room/Bed: [address] Ship Rigger Apprentice: Alberta aGndhi RDCS (AE) Indications: CHF Other Information Study Quality: Fair. Technically limited study due to body habitus, inability to position patient, un cooperative patient. Conclusion Left Ventricle : The left ventricle is normal size. The left ventricular systolic function is normal. The left ventricular ejection fraction is within the normal range. There is normal left ventricular wall thickness. There is normal LV segmental wall motion. LVEF is 57%. Right Ventricle : Right ventricle is grossly normal in size. Right ventricular systolic function is g rossly normal. Atria : The left atrium size is normal. The right atrium size is normal. Mitral Valve : The mitral valve is normal in structure. Trace mitral regurgitation. No evidence of mi tral valve stenosis. Great Vessels : IVC is normal in size and collapses >50% with inspiration. Please see remainder of study for further details. Wall motion Left Ventricle The left ventricle is normal size. The left ventricular systolic function is normal. The left ventric ular ejection fraction is within the normal range. There is normal left ventricular wall thickness. T here is normal LV segmental wall motion. There is no ventricular septal defect visualized. LVEF is 57 %. Right Ventricle Right ventricle is grossly normal in size. Right ventricular systolic function is grossly normal. Atria The left atrium size is normal. The right atrium size is normal. The interatrial septum is intact wit h no evidence for an atrial septal defect. Aortic Valve The aortic valve is normal in structure. Aortic valve is probably trileaflet. There is no aortic valv ular stenosis. No aortic regurgitation is present. Mitral Valve The mitral valve is normal in structure. No evidence of mitral valve stenosis. Trace mitral regurgita tion. Tricuspid Valve The tricuspid valve is normal in structure. There is no tricuspid valve stenosis. Trace tricuspid reg urgitation. Pulmonic Valve Pulmonic valve is not well visualized. There is no pulmonic valvular stenosis. There is no pulmonic v alvular regurgitation. Great Vessels The aortic root is normal in size. Ascending aorta is not well visualized. IVC is normal in size and collapses >50% with inspiration. Pericardium There is no pericardial effusion. 2D Dimensions IVSD d PLAX 0.91 cm M: 0.6-1.2 LV Vol A2C d MOD 86.7 mL LVPW d PLAX 0.99 cm M: 0.6 - 1.2 LV Vol A4C d MOD 79.1 mL LVID d PLAX 4.78 cm M: 4.2 - 5.8 LV EF A4C MOD 55.2 % LVDs 3.35 cm M: 2.5 - 4.0 LV EF A2C MOD 57.3 % Ao Root d 3.04 cm M: 3.1 - 3.7 LV EF Biplane MOD 56.8 % RA Area A4C 12.50 cm2 SV 47.75 mL RA Vol/ BSA A4C s A-L 16.7 mL/m2 SV Index 25.93 mL/m2 LV EF Teichholz 56.5 % LVEF (Markham's) 56.85 % M: 52 - 72 LV Volume 64.80 mL M: 62 - 150 LV Volume Index 35.21 mL/m2 M: 34 - 74 LV Vol Biplane MOD 84.0 mL FS 29.60 % M-Mode TAPSE 1.41 cm (M/F) >1.7 LV Diastology MV E' medial 0.069 (>0.07 m/s) E/A Ratio 0.7 LV E/e MED 10.20 (<14) MV E Vmax 0.71 (0.4-1.3 m/s) MV E' lateral 0.054 (>0.1 m/s) MV A Vmax 0.95 (0.4-1.3 m/s) LV E/e LAT 13.15 (<14) MV E/A Ratio 0.74 MV E/E' medial 10.24 MV E/E' lateral 13.18 Aortic Valve LVOT Area 3.83 cm2 AoV Area Vmax 1.95 cm2 LVOT Vmax 0.77 m/s AoV Area/ BSA (Vmax) 1.06 cm2/m2 LVOT Mean Slick. 0.47 m/s RICHAR Mean Slick. 1.71 cm2 LVOT Peak Grad 2.4 mmHg RICHAR Mean Slick. Index 0.93 cm2/m2 LVOT Mean Grad 1.1 mmHg LVOT VTI 0.148 m LVOT Diam s 2.20 cm AoV Vmax 1.52 m/s Velocity Ratio 0.50 AoV Mean Slick. 1.07 m/s AoV Peak Grad 9.2 mmHg LVOT SV 56.56 mL AoV Mean Grad 5.1 mmHg AoV VTI 0.287 m AoV Area VTI 1.97 cm2 AoV Area/ BSA (VTI) 1.07 cm/m2 Mitral Valve MV DT 296 (160-240 msec) MV PHT 86 msec MV Area PHT 2.56 cm2 Pulmonary Valve PV Vmax 1.05 (0.5-1.5 m/s) RVOT Peak Gr. 1.98 mmHg PV Peak Grad 4.4 mmHg RVOT Mean Gr. 1.35 mmHg PV Mean Grad 2.7 mmHg RVOT VTI 0.141 m PV VTI 0.217 m RVOT Vmax 0.70 m/s Tricuspid Valve TR Peak Grad 18.2 mmHg TR Vmax 2.14 m/s RA Pressure 3.00 mmHg RVSP (TR) 21.3 mmHg
--- NOTE | 2021-02-20 08:00 | DI.MRI_ITS ---
Exam(s) MR ANGIO BRAIN WO EXAM: MR ANGIO BRAIN WO CLINICAL HISTORY: L facial droop TECHNIQUE: Noninfused MRA of the brain was performed using [id number] sequence COMPARISON: Recent CT scans reviewed . MRI also reviewed. FINDINGS: ANTERIOR CIRCULATION: Both internal carotid arteries are demonstrated to be patent in the skull base-carotid canals as well as within the cavernous sinuses. Supraclinoid aspect of these vessels are patent. Both A1 segments are patent. Anterior cerebral arteries are patent. There is no evidence of obvious aneurysm at the level of the anterior communicating artery. Both middle cerebral arteries appear patent. POSTERIOR CIRCULATION: There is paucity of flow signal seen in the lower half basilar artery. Flow signal is seen in the di stal half basilar artery. Flow in the posterior cerebral arteries is aided by posterior communicatin g arteries on both sides of the [id number]. There is no evidence of aneurysm tip of the basila r artery. IMPRESSION: 1. Significant decreased flow signal evident in the proximal half of the basilar artery. Flow is see n in the distal half the basilar artery and posterior cerebral arteries. Bilateral posterior communi cating arteries are noted on both sides the [id number]. 2. There appears to be patent flow in the anterior circulation. 3. Recommend CT angiography of the head and neck, given the above findings. DATA REPOSITORY:
[2021-02-20] MEDS: Finasteride 5 MG TAB PO (08:01)
[2021-02-20] MEDS: predniSONE 20 MG TAB 40 MG PO (08:01)
[2021-02-20] MEDS: risperiDONE 0.5 MG TAB PO ×2 (08:01→19:28)
[2021-02-20] MEDS: Pantoprazole 40 MG TABCR PO (08:01)
[2021-02-20] MEDS: Insulin Glargine 300 UNITS/3 ML PEN 20 UNITS SC (08:02)
[2021-02-20] MEDS: Insulin Aspart 300 UNITS/3 ML PEN SC ×4 (08:03→21:22)
[2021-02-20] MEDS: Mometasone 220 MCG 14 DOSE INHALER IH ×2 (08:05→19:28)
[2021-02-20] MEDS: Insulin Glargine 300 UNITS/3 ML PEN 10 UNITS SC (08:30)
--- NOTE | 2021-02-20 08:32 | PCNE_ITS ---
Date of service: 02/20/21 Time of Service: 08:32 History of Present Illness History of Present Illness Chief Complaint: SOB,dementia Narrative: From H and P History of Present Illness Chief Complaint: shortness of breath, increased work of breathing Narrative: Mr Naylor is a 80 year old male with PMHx of IDDM2, O2- requiring COPD (2L prn), CAD, CHF (?EF), CKD, HTN, BPH, dementia, who was discharged from our facility to [facility] on 02/15/21 after an admisson for HCAP, who was sent to [facility] ED today for worsening work of breathing/respiratory distress. In the ED, he was placed on BiPAP to help with the work of breathing. His workup is consistent with COPD exacerbation with a fluid overload component. He was initiated on steroids, nebulizer treatments, empiric antibiotics given leucocytosis and elevated procalcitonin, as well as diuresis. Hospitalist admission was requested. The patient since then has come off of BiPAP and has been transitioned to room air. Neither in the ED nor on my visit with him has he been verbal, but he does wake up enough to moan. nterim Hx: Staff has stated that Crow has been here for other hospitalizations. This time was different. He seems more argumentative and agitated. I went in to see Pelon. All he could tell me was I want to go home I want to go home Assessment and Plan Assessment and plan (1) Weakness on left side of face: Status: Acute (2) Acute exacerbation of chronic obstructive pulmonary disease: Status: Acute (3) Acute CHF: Status: Acute (4) IDDM (insulin dependent diabetes mellitus): Status: Chronic (5) Agitation: Status: Acute (6) Palliative care patient: Status: Acute Assessment and plan: Pelon is a 80-year-old man with COPD, congestive heart failure, diabetes and dementia. The agitation seems to be new. I recommend Seroquel 12.5 mg up to 3 times daily. He is presently on appropriate antibiotics, diabetic meds etc. It would be great if some of his family could come in to visit as I think it would help to better ground him. Palliative care would be happy to follow him when he is back in his living situation of [facility] to better assess his daily agitation versus possible delirium from his sepsis. Also would be helpful to discuss with his how aggressive they would like to be with his care. I will try connecting with his over the next day or so Review of Systems Narrative: He did shake his head when I asked him if he was in pain?he said no. He said his breathing was fine Unobtainable due to mental condition [facility] Active Problem List (Updated 02/20/21 @ 20:48 by Indy Mccollum MD, DC) Palliative care patient (Acute) Agitation (Acute) Weakness on left side of face (Acute) Acute exacerbation of chronic obstructive pulmonary disease (Acute) Acute CHF (Acute) Discharge planning issues (Acute) DVT prophylaxis (Acute) IDDM (insulin dependent diabetes mellitus) (Chronic) Acute exacerbation of chronic obstructive pulmonary disease (COPD) (Acute) Sepsis (Acute) HCAP (healthcare-associated pneumonia) (Acute) Acute kidney injury superimposed on chronic kidney disease (Acute) Medical History (Updated 02/20/21 @ 20:48 by Indy Mccollum MD, DC) BPH (benign prostatic hyperplasia) CAD (coronary artery disease) of artery bypass graft Chronic kidney disease Baseline Cr around 1.5 Chronic pain COPD (chronic obstructive pulmonary disease) Dementia Diabetes DNI (do not intubate) DNR (do not resuscitate) History of recurrent UTIs Urinary retention Surgical History (Updated 02/19/21 @ 14:41 by Violetta George MD) S/P CABG (coronary artery bypass graft) Family History (Updated 02/18/21 @ 15:59 by Violetta George MD) Other Family history unobtainable due to patient's condition Social History Smoking/Tobacco Use Status: Unknown Smoking risk assessment performed?: Yes Do you feel safe at home: Yes (H&R) Do you feel safe in your relationship?: Yes Exam Narrative Exam Narrative: Pelon is lying in bed. He does get up on his elbows when I come in the room. He states that he wants to go home. His heart was regular. Lungs shallow breathing but even. His abdomen was nontender. He did not have any edema. Although he was not particularly cordial, he did not appear agitated during my time with him. Please note I did not see any overwhelming face asymmetry with smiling, he did squeeze my fingers with both his hands. He moved his feet but did not seem to understand what I meant about pushing his toes downward. Results Last Vital Signs Temp 98.2 F 02/20/21 07:28 Pulse 87 02/20/21 08:29 Resp 19 02/20/21 07:28 BP 179/72 H 02/20/21 07:28 Pulse Ox 94 02/20/21 07:28 Laboratory Tests 02/18/21 02/19/21 02/20/21 08:54 07:00 06:10 WBC 16.25 H Hct 32.0 L D Potassium 3.2 L Creatinine 1.9 H Glucose 308 H Albumin 3.2 L 02/20/21 06:10 WBC 13.21 H Hct 30.0 L Potassium Creatinine Glucose Albumin MRA/MRI MPRESSION: 1. Significant decreased flow signal evident in the proximal half of the basilar artery. Flow is seen in the distal half the basilar artery and posterior cerebral arteries. Bilateral posterior communicating arteries are noted on both sides the [id number]. 2. There appears to be patent flow in the anterior circulation. 3. Recommend CT angiography of the head and neck, given the above findings. Echo Conclusion Left Ventricle : The left ventricle is normal size. The left ventricular systolic function is normal. The left ventricular ejection fraction is within the normal range. There is normal left ventricular wall thickness. There is nor mal LV segmental wall motion. LVEF is 57%. Right Ventricle : Right ventricle is grossly normal in size. Right ventricular systolic function is grossly normal. Atria : The left atrium size is normal. The right atrium size is normal. Mitral Valve : The mitral valve is normal in structure. Trace mitral regurgitation. No evidence of mitral valve stenosis. Great Vessels : IVC is normal in size and collapses >50% with inspiration MRI Brain MPRESSION: Area of signal abnormality in the right parietal lobe as described above, not exhibiting restricted diffusion and therefore most probably sequelae of non recent ischemic event at this location. Labs Result diagrams: 02/20/21 06:10 02/20/21 06:10 Labs: Laboratory Results - last 24 hr 02/19/21 02/20/21 02/20/21 16:58 06:10 06:10 WBC 13.21 H RBC 3.25 L Hgb 9.6 L Hct 30.0 L MCV 92.3 MCH 29.5 MCHC 32.0 RDW 13.1 Plt Count 225 MPV 11.1 H Immature Gran % 1.1 Neutrophils % 69.1 Lymphocytes % 18.7 Monocytes % 11.0 Eosinophils % 0.0 Basophils % 0.1 Nucleated RBC % 0 Absolute Neutrophils 9.13 H Absolute Lymphocytes 2.47 Absolute Monocytes 1.45 H Absolute Eosinophils 0.00 Absolute Basophils 0.01 Sodium 139 Potassium 3.2 L Chloride 106 Carbon Dioxide 22.4 Anion Gap 10.6 BUN 38 H D Creatinine 1.9 H Estimated GFR/1.73 m2 34.37 Glucose 386 H 308 H Calcium 7.8 L Magnesium 1.9 Vancomycin Trough 02/20/21 19:00 WBC RBC Hgb Hct MCV MCH MCHC RDW Plt Count MPV Immature Gran % Neutrophils % Lymphocytes % Monocytes % Eosinophils % Basophils % Nucleated RBC % Absolute Neutrophils Absolute Lymphocytes Absolute Monocytes Absolute Eosinophils Absolute Basophils Sodium Potassium Chloride Carbon Dioxide Anion Gap BUN Creatinine Estimated GFR/1.73 m2 Glucose Calcium Magnesium Vancomycin Trough Cancelled
--- NOTE | 2021-02-20 08:38 | TELEFU_ITS ---
Date of service: 02/21/21 Time of Service: 08:38 Nutrition Note NOTE: Assessment: 80yo male admitted for respiratory distress wit PMH significant for IDDM2, COPD, CAD, CHF, CKD, HTN, BPH and dementia. Meds: Apirin, Atorvastatin, Enoxaparin, Finasteride, Insulin Aspart sensitive ss protocol, 30units Glargine, Losartan, Mometasone, Pantoprazole, Zosyn, KCl, Prednisone, Resperidone, Tamsulosin, Torsemide. Aceamonophen, Albuterol, Mercedes, Bisacodyl, Docusate Sodium, MOM, Mylanta, Nitro and Quetiapine as PRN?s. BMI wnl and weight stable over admission thus far. Pt ordered for Diabetic Consistent CHO low sodium diet with clears only since lunch 02/18/21. Unable to speak with pt this morning as he was down at echocardiogram. Diagnosis: Limited ability to self-feed related to dementia and compounding medical conditions AEB requiring assistance for meals. Intervention: Recommend advancing diet to CHO consistent/low Na diet to consistency as identified by speech therapy consult. Monitoring/evaluation: will monitor weight, labs, intake with assistance as diet advances for any related nutrition concerns. Chacho Toscano NDTR ? internet marketing consultant Time Spent in Nutritional Counseling and Treatment: 15 MINUTES
[2021-02-20] MEDS: Potassium Chloride 20 MEQ TABCR 40 MEQ PO (09:08)
[2021-02-20] MEDS: Losartan 50 MG TAB PO (09:08)
--- NOTE | 2021-02-20 09:53 | PDOC.CMPRO ---
- If Service Date Differs Date of service: 02/20/21 Time of Service: 09:53 Care Management Progress Note S/O: Crow was lying in bed when CM met with him. He did not converse with CM much this morning, however he made good eye contact and was appreciative to have help with his TV. Per morning meeting, Crow refused his IV antibiotic at 5:30am this morning, but accepted them later in the day. Per RN, Crow has been pleasant and cooperative during this shift. A: 80 year old male admitted to [facility] on 02/18/2021 for acute COPD exacerbation, Respiratory Distress P: Anticipate Crow will discharge back to [facility] via facility van when medically cleared by provider. He will follow up with community providers and discharge plan of care as prescribed.
--- NOTE | 2021-02-20 10:03 | PHA.REVIEW ---
Pharmacy Admission Review - Admission Clinical Review (Last Updated 02/19/21 @ 14:41 by Violetta George MD) Weakness on left side of face (Acute) Acute exacerbation of chronic obstructive pulmonary disease (Acute) Acute CHF (Acute) Discharge planning issues (Acute) DVT prophylaxis (Acute) Acute exacerbation of chronic obstructive pulmonary disease (COPD) (Acute) No Known Allergies Allergy (Unverified 02/18/21 10:03) Resuscitation Status DNR/DNI Height 5 ft 5 in Weight 76.7 kg - Renal Dosing Renal Dosing: BUN 38 mg/dL (7-18) H D 02/20/21 06:10 Creatinine 1.9 mg/dL (0.70-1.30) H 02/20/21 06:10 Medications needing adjustments: Reviewed (SCr: 1.9, CrCl~27.00mL/min. All medications dosed appropriately.) - Anticoagulation Anticoagulation: Hgb 9.6 g/dL (13.5-17.5) L 02/20/21 06:10 Hct 30.0 % (40.0-50.0) L 02/20/21 06:10 Plt Count 225 10^3/uL (130-400) 02/20/21 06:10 Creatinine 1.9 mg/dL (0.70-1.30) H 02/20/21 06:10 DVT Prophylaxis: Reviewed Medications: Enoxaparin (Enoxaparin 30mg SC Q24H) Therapeutic Anticoagulation: N/A - Opiate Usage Evaluate Pain Scale/Pains Meds: N/A (No opiates ordered this admission, pain scale ratings have been 0.) - Relevant Labs Sodium 139 mmol/L (136-145) 02/20/21 06:10 Potassium 3.2 mmol/L (3.5-5.1) L 02/20/21 06:10 Chloride 106 mmol/L (98-107) 02/20/21 06:10 Magnesium 1.9 mg/dL (1.8-2.4) 02/20/21 06:10 Electrolytes, C-Reactive P, ESR: Reviewed (Potassium low (3.2), supplemented with 40mEq daily.) - DM Control DM Control: Glucose 308 mg/dL (74-106) H 02/20/21 06:10 Finger Stick Blood Glucose 325 Finger Stick Blood Glucose 325 Finger Stick Blood Glucose 325 Finger Stick Blood Glucose 325 Finger Stick Blood Glucose 325 Insulin Dosing: Reviewed (Glucose elevated this admission. Insulin glargine dose increased to 30 units daily with aspart SS.) - Heart Failure/CA Heart Failure/CA: Troponin I < 0.05 ng/mL (<0.06) 02/18/21 08:54 NT-Pro-B Natriuret Pep 1033 pg/mL (<300) H 02/18/21 08:54 EF%, RONY's, B-Blockers, Diuretics: Reviewed - BP Control BP Control: Blood Pressure 179/72 Blood Pressure 164/66 Blood Pressure 143/54 If elevated: Reviewed (Blood pressure elevated, Losartan and Torsemide ordered.) - Qtc Review If Elevated: Reviewed (QTc 472 on admission.) List meds needing interventions: Haloperidol PRN and quetiapine PRN may prolong QTc. - IV to PO Switch IV Medications: Reviewed - Home Meds Home Med List reviewed: Reviewed Relevent Home Meds Not ordered & why?: Insulin lispro (replaced by insulin aspart) and potassium 10mEq BID (dose increased to 40mEq daily). - Current meds Current Medication Order Review: Reviewed - Comments Comments/Follow Ups: Continue to monitor potassium, blood glucose, blood pressure, vitals, labs and medication changes (avoid QT prolonging medications). Antibiotic Activity - Pharmacy Antibiotic Review Pharmacy Antibiotic Activity: D/C antibiotic (Vancomycin discontinued (MRSA nares negative), continuing Piperacillin/Tazobactam 3.375gm Q6H.)
[2021-02-20] MEDS: Enoxaparin 30 MG/0.3 ML SYR SC (12:34)
[2021-02-20] MEDS: PIPERACILLIN/TAZO 3.375 GM in Normal Saline 50 ML IVPB ×3 (12:34→23:55)
[2021-02-20] MEDS: Normal Saline 500 ML 30 ML IV (12:35)
--- NOTE | 2021-02-20 14:59 | PT.INNT ---
Date of service: 02/20/21 Time of Service: 14:59 PT Notes Visit Reasons: Acute Exacerbation of COPD,Respiratory Distress 02/20/2021 Patient refused to participate x1 and was not available x1 in a.m.. Patient refused x3 in p.m. Will attempt to resume PT services tomorrow morning.
--- NOTE | 2021-02-20 15:20 | SP_ITS ---
Date of service: 02/20/21 Time of Service: 14:13 Subjective Patient received sleeping however arousable and agreeable to evaluation; nursing staff assisted this clinician with repositioning patient to upright and midline in bed for safe p.o. intake, pt able to communicate wants/needs verbally with occasional request for repetition given dysarthric speech patterns; able to demonstrate partial comprehension of recommendations for safe p.o. intake upon discharge once deemed medically stable. Objective Objective Clinical (Bedside) Swallow Evaluation Speech Language Pathology Patient referred for clinical swallow and cognitive communication evaluation from Dr George given concern for suspected CVA/dysphagia, change from cognitive baseline. Precautions: Fall, Standard, DNR/DNI HPI: Pt is a 80 year old male; admitted to [facility] on 02/18 for respiratory distress due to COPD exacerbation and fluid overload; presenting w L facial droop and feeding difficulties due to RUE weakness; edentulous yet reporting he does have upper dentures; no dentures available on unit per nursing and/or patient interview today. Pmhx significant for acute exacerbation of COPD, Acute CHF, HCAP (healthcare- associated PNA), sepsis, insulin dependent DM; MD suspects suspect a chronic L MCA territory CVA, has gone for imaging as of this AM (results not available at time of evaluation). This ELEMENTARY SCHOOL COUNSELOR spoke with previously treating ELEMENTARY SCHOOL COUNSELOR at [facility] in AM 02/20; confirmed pt previously on [facility] caseload, did not demonstrate L facial droop prior to current admission per [facility]; had been tolerating reg/thins well (had been recommended 'dysphagia advanced' diet, but decided against this, choosing to stop eating if he became SOB, which he was relatively independent with); patient was primarily seen for cognitive-communication therapy at that time. Per treating ELEMENTARY SCHOOL COUNSELOR's report, patient has most recently demonstrated overall moderate cognitive-communication deficits on CLQT (mild attn, severe mem, severe EF, mod language - word finding issues, mod visuospatial; able to follow 1-step directions WFL, 2-step directions at 60% acc for structured tasks) Per Nursing report this AM, pt states he is currently driving a car, however is able to state that he knows he is in the hospital; presenting with 'garbled s peech'. Mentation improved throughout ELEMENTARY SCHOOL COUNSELOR evaluation today. IMPRESSIONS: Patient is at low-moderate risk for aspiration-related pulmonary complication, given adequate oral hygiene & presumed immunocompetence; improvements in physical mobility and overall pulmonary function likely to further reduce this risk. Further ELEMENTARY SCHOOL COUNSELOR services warranted at this time. Provided education to patient, nursing staff re: anatomy/physiology of swallowing mechanism, overt s/sx to monitor for re: potential aspiration of food / liquids, relationship between respiratory function changes and deglutition. Recommendations including risk mgmt and diet texture/consistency upgrade discussed with Dr. George and Nursing staff. Assessment Active Problem List (Updated 02/19/21 @ 15:03 by Violetta George MD) Weakness on left side of face (Acute) Acute exacerbation of chronic obstructive pulmonary disease (Acute) Acute CHF (Acute) Discharge planning issues (Acute) DVT prophylaxis (Acute) IDDM (insulin dependent diabetes mellitus) (Chronic) Acute exacerbation of chronic obstructive pulmonary disease (COPD) (Acute) Sepsis (Acute) HCAP (healthcare-associated pneumonia) (Acute) Acute kidney injury superimposed on chronic kidney disease (Acute) Medical History (Updated 02/19/21 @ 15:03 by Violetta George MD) BPH (benign prostatic hyperplasia) CAD (coronary artery disease) of artery bypass graft Chronic kidney disease Baseline Cr around 1.5 Chronic pain COPD (chronic obstructive pulmonary disease) Dementia Diabetes DNI (do not intubate) DNR (do not resuscitate) History of recurrent UTIs Urinary retention Surgical History (Updated 02/19/21 @ 14:41 by Violetta Geroge MD) S/P CABG (coronary artery bypass graft) Social History/Home Situation: Pt lives with assist available at [facility] OBJECTIVE: Predisposing dysphagia risk factors: COPD, CHF, pna hx, suspected ?CVA (unconfirmed at time of evaluation) Clinical signs of possible chronic dysphagia: cough, anterior spillage Precipitating dysphagia risk factors / triggering event: suspected ?CVA (unconfirmed at time of evaluation) Temp: 97.5 F Sp02: 98% RR: 20/room air Cranial nerve exam / Oral Motor: CN V: facial sensation intact to light touch labial protrusion unable to assess, patient does not follow this direction labial coordination/ROM WFL Jaw excursion/lateralization intact mastication impaired due to edentulous status lingual/labial sensation intact per patient report suspect superior hyoid movement is intact although cannot rule out at bedside CN VII: lateral sulcus residue DNT anterior spillage not observed with cup sip thin liquids, however patient does report occasional anterior spillage on ? right side with cup sips salivation intact CN IX/X: palatal elevation -unable to assess Vocal Quality -WFL taste -WFL onset of swallow -suspect WFL pharyngeal residue -patient denies nasopharyngeal regurgitation -patient denies CN XII: bolus preparation/manipulation/control -WFL AP transit -WFL lingual protrusion - asymmetrical, deviation to R side upon protrusion lingual coordination/ROM WFL lingual residue absent Dentition/Oral Structures/Hygiene: Edentulous anterior maxillary and mandibular incisors absent maxillary and mandibular premolars absent oral hygiene appears adequate Language: Intermittent/varying difficulties with auditory comprehension/following 1-step directions despite mod-max verbal/visual/tactile cueing; difficulties with simple 2 step directions and/or increased linguistic complexity Hearing: Hearing status unclear Mental Status: AAOx2, recall of current events grossly intact Speech: Dysarthric, requires repetition/slow rate of speech for speaker to comprehend at times Laryngeal function exam: Secretions: WFL Vocal quality: WFL MPT: DNT S/Z ratio: DNT Pitch range: WFL Cough: (volitional) perceptually WFL PO intake IDDSI 0: Thin liquid via cup, straw (-) overt s/sx aspiration in 2/2 trials via cup sip, 8/9 trials via straw; (+) overt s/sx aspiration as characterized by delayed cough, noted x1 after self-administered drink from straw IDDSI 4: via tsp, WFL [place] Swallow Protocol: Fail, primarily due to cognitive deficits: (-) overt s/sx aspiration with sequential drink from cup; patient demonstrates increased self awareness of RR change(s) when drinking from cup vs. straw Recommendations: Instrumentation: N/A at this time, pending outcomes from participation in treatment/improvements in medical status/consistently following one-step directions Diet Texture Modification(s): IDDSI Level(s) 4-pur?ed solids, 0 thin liquids Medication Intake: Whole with 0-Thin Liquids, may trial pills whole in 4-Extremely Thick Liquids/Pureed solids as tolerated with thin liquid wash Alter medications only as advised by MD or Pharmacist RISK MANAGEMENT: Oral hygiene BID/2x per day, and before/after PO intake using friction with toothbrush on all oral structures as tolerated HOB upright as tolerated; upright for all PO intake. Encourage physical mobility as tolerated. Level of Assistance/Supervision: 1:1 assist for all PO intake, primarily for use of risk management strategies as outlined PO intake only when awake/alert Strategies/Adaptations/Assistive Equipment: Reduce auditory and/or visual distractions when eating, Provide verbal and/or visual cues to use recommended strategies, Small sips and bites when eating, Slow rate of intake, Swallow between bites, Controlled sips by straw only (not self-administered), Alternate intake of liquids and solids, if patient reports shortness of breath, stop p.o. intake and resume when RR has recovered Communication: Encourage repetition from patient if unable to comprehend speech; slow rate of speech; increased vocal intensity from patient Posture/Positioning Needs: Maintain upright position at least 30 minutes after meals, Avoid meals/snacks 2- 3 hours prior to reclining/sleeping, Sleep with head of bed elevated to reduce likelihood of nocturnal reflux Ensure patient is at midline Specialist referrals: N/A Ancillary tests: N/A Therapy: 1-3x/week PRN until discharged/medically cleared for discharge to SNF; recommend ELEMENTARY SCHOOL COUNSELOR re-evaluation upon discharge given reintroduction to SNF environment/need for updated recommendations/staff training in home setting as appropriate Plan ELEMENT[employer] SCHOOL COUNSELOR to follow while on unit as outlined. Susy Bunch MA CCC-ELEMENTARY SCHOOL COUNSELOR [phone] ELEMENTARY SCHOOL COUNSELOR CPT Code: 91124 Clinical Swallowing Evaluation; 58613 Speech/Language Evaluation Short Term Goals: 1. Patient will tolerate IDDSI Level(s) 5/0 (minced & moist, thin liquids) without s/sx aspiration provided training in/use of swallow strategies and aspiration precautions within 1 week. 2. Patient/caregivers will demonstrate understanding of education related to normal vs disordered swallowing, impact of current diagnoses on swallow function, relationship between respiration and deglutition, and recommended strategies for minimizing risks of aspiration pna/airway occlusion within 1 week. Coding
[2021-02-20] MEDS: Atorvastatin 40 MG TAB 80 MG PO (19:28)
[2021-02-20] MEDS: QUEtiapine 25 MG TAB PO (21:45)
[2021-02-21 03:47] VITALS: PULSE 80
[2021-02-21] MEDS: PIPERACILLIN/TAZO 3.375 GM in Normal Saline 50 ML IVPB (05:51)
[2021-02-21] MEDS: Albuterol/Ipratropium 3 ML UPD VIAL UPD (05:51)
[2021-02-21 07:02] VITALS: PULSE 88
[2021-02-21 07:17] LABS: Abs Immature Grans 0.17 10^3/uL (0.0-0.06); Absolute Basophil Count 0.01 10^3/uL (0.0-0.2); Absolute Eosinophil Count 0.02 10^3/uL (0.0-0.7); Absolute Lymphocyte Count 2.62 10^3/uL (1.2-3.4); Absolute Monocyte Count 1.29 10^3/uL (0.1-0.8); Basophils % 0.1; Eosinophils % 0.2; HCT 32.4 % (40.0-50.0); HGB 10.6 g/dL (13.5-17.5); Immature Grans % 1.4; Lymphocytes % 22.2; MCH 29.5 pg (27.0-33.0); MCHC 32.7 % (32.0-36.0); MCV 90.3 fL (80-95); MPV 11.3 fL (8.0-11.0); Monocytes % 10.9; Neutrophils % 65.2; Nucleated RBC 0 %; Platelet Count 242 10^3/uL (130-400); RBC 3.59 10^6/uL (4.36-5.78); RDW 13.1 % (11.8-14.1); RDW-SD 43.5 fL; WBC 11.79 10^3/uL (4.4-10.8)
[2021-02-21 07:21] LABS: Absolute Neutrophil Count 7.69 10^3/uL (1.2-6.7)
[2021-02-21] MEDS: Haloperidol 5 MG/ML VIAL 2 MG IM ×2 (07:30→08:54)
[2021-02-21 07:31] LABS: Anion Gap 10.4 mmol/L (3-11); BUN 29 mg/dL (7-18); CO2 24.6 mmol/L (21.0-32.0); CREATININE 1.6 mg/dL (0.70-1.30); Calcium 8.1 mg/dL (8.5-10.1); Calculated LDL 65 mg/dL (<100); Chloride 103 mmol/L (98-107); Cholesterol 141 mg/dL (<200); Glucose 255 mg/dL (74-106); HDL Cholesterol 32 mg/dL (40-60); Potassium 4.1 mmol/L (3.5-5.1); Sodium 138 mmol/L (136-145); Triglyceride 222 mg/dL (<150)
--- NOTE | 2021-02-21 07:33 | NUR.NOTE ---
Nursing Note: SURGERY TECHNICIAN received report from PATI Hoover. RN reported that pt had been very combative and agitated overnight. On exam pt was verbally swearing, hitting, punching, kicking, and spitting. Last PRN seroquel given at 2100. was notified on change of shift of pt behavior. 2mg of IM heldol ordered and given. Will continue to monitor.
--- NOTE | 2021-02-21 09:38 | CMPROGNOTE_ITS ---
- If Service Date Differs Date of service: 02/21/21 Time of Service: 09:38 Care Management Progress Note S/O: Crow was lying in bed sleeping each time CM met with him. He required PRN medication for agitation, which the provider feels is likely secondary to change in environment. PT was unable to meet with Crow today and will try again tomorrow. A: 80 year old male admitted to [facility] on 02/18/2021 for acute COPD exacerbation, Respiratory Distress P: Anticipate Crow will discharge back to [facility] via facility van when medically cleared by provider. He will follow up with community providers and discharge plan of care as prescribed.
--- NOTE | 2021-02-21 10:07 | STREC_ITS ---
Date of service: 02/21/21 Time of Service: 10:08 Speech Therapy Recommendations Report ST Recommendations: REASON FOR NON-TREATMENT NOTE: Per RN report to PROFILING MACHINE SET UP OPERATOR TOOL, patient has been very combative this date and has been refusing to eat. RN advising PROFILING MACHINE SET UP OPERATOR TOOL to hold off on PROFILING MACHINE SET UP OPERATOR TOOL treatment and meal follow-up at this time. Will remain available this date for follow-up this date if patient's mental status changes, otherwise PROFILING MACHINE SET UP OPERATOR TOOL service plans to attempt to make contact again tomorrow as appropriate. If patient is agreeable to PO intake, previous recommendations stand as follows: RECOMMENDATIONS: Diet Texture Modification(s): IDDSI Level(s) 4-pur?ed solids, 0 thin liquids Medication Intake: Whole with 0-Thin Liquids, may trial pills whole in 4-Extremely Thick Liquids/Pureed solids as tolerated with thin liquid wash Alter medications only as advised by MD or Pharmacist RISK MANAGEMENT: Oral hygiene BID/2x per day, and before/after PO intake using friction with toothbrush on all oral structures as tolerated HOB upright as tolerated; upright for all PO intake. Encourage physical mobility as tolerated. Level of Assistance/Supervision: 1:1 assist for all PO intake, primarily for use of risk management strategies as outlined PO intake only when awake/alert Strategies/Adaptations/Assistive Equipment: Reduce auditory and/or visual distractions when eating, Provide verbal and/or visual cues to use recommended strategies, Small sips and bites when eating, Slow rate of intake, Swallow between bites, Controlled sips by straw only (not self-administered), Alternate intake of liquids and solids, if patient reports shortness of breath, stop p.o. intake and resume when RR has recovered Communication: Encourage repetition from patient if unable to comprehend speech; slow rate of speech; increased vocal intensity from patient Posture/Positioning Needs: Maintain upright position at least 30 minutes after meals, Avoid meals/snacks 2- 3 hours prior to reclining/sleeping, Sleep with head of bed elevated to reduce likelihood of nocturnal reflux Ensure patient is at midline Specialist referrals: N/A Ancillary tests: N/A Therapy: 1-3x/week PRN until discharged/medically cleared for discharge to SNF; recommend PROFILING MACHINE SET UP OPERATOR TOOL re-evaluation upon discharge given reintroduction to SNF environment/need for updated recommendations/staff training in home setting as appropriate --- PLAN: PROFILING MACHINE SET UP OPERATOR TOOL to follow while on unit as outlined. Coding
[2021-02-21] MEDS: LORazepam 2 MG/ML VIAL 1 MG IVP ×2 (10:08→16:09)
[2021-02-21] MEDS: Normal Saline Flush 10 ML SYR IVP ×3 (10:08→16:09)
[2021-02-21] MEDS: diphenhydrAMINE 50 MG/ML VIAL 25 MG IVP ×2 (10:08→16:09)
--- NOTE | 2021-02-21 10:26 | NUR.NOTE ---
Nursing Note: pt continues to be agitated throughout morning, ordered a second dose of 2mg haldol IM with no effect. Benadryl and Ativan given IVP by PATI Mario. pt seems much more comfortable and is resting at this time. Will continue to monitor.
--- NOTE | 2021-02-21 11:35 | PGE_ITS ---
Date of Service Date of service: 02/20/21 Time of Service: 11:00 Assessment and Plan Assessment and plan (1) Weakness on left side of face: Status: Acute Assessment and plan: no facial droop appreciated today, moves all extremities with no focal deficits noted There is an H&P that was part of the packet of medical records sent to us from [facility], which was written in 01/2021, which says no facial droop. The patient did require assistance with feeding himself with his RUE on his last admission here. 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 MRI/MRA brain/neck results pending. continue baby asa and high dose statin. Monitor on tele with neurochecks. If MRI positive, will obtain neuro consult. awaiting OT and speech therapy consults. (2) Acute exacerbation of chronic obstructive pulmonary disease: Status: Acute (3) Acute CHF: Status: Acute Assessment and plan: Continue home torsemide. (4) IDDM (insulin dependent diabetes mellitus): Status: Chronic Assessment and plan: Resume outpatient lantus; continue SSI (5) Agitation: Status: Acute Subjective Subjective Interval history since last seen: no new c/o. has been hemodynamically stable, no fevers, no respiratory distress. Exam Const Nutritional Appearance: average body habitus [facility] Head: normal to inspection Face and sinus: normal facial exam Mouth: mucous membranes dry Eyes General: appearance normal, both eyes and all related structures Neck Neck: normal visual inspection Resp Auscultation: wheezes lower bilaterally and upper bilaterally Cardio Rate: regular rate Rhythm: regular rhythm GI Inspection: normal to inspection Palpation: soft and nontender Auscultation: normal bowel sounds Skin General skin exam: no rashes or lesions noted Neuro General: patient awake Cognition: normal cognition Speech: speech normal Motor: muscle tone normal throughout Sensory Exam: no sensory deficits noted Extrem General: normal to inspection, full ROM, capillary refill normal, no calf tenderness bilaterally and no edema Psych Appearance: grossly normal Mental Status: mental status grossly normal Speech and Movement: speech and movement normal Affect: normal affect Objective Last Vital Signs Temp 36.7 C 02/20/21 23:15 Pulse 88 02/21/21 07:02 Resp 20 02/20/21 23:15 BP 145/67 H 02/20/21 23:15 Pulse Ox 95 02/20/21 23:15 Laboratory Results - last 24 hr 12/07/21 12/07/21 06:30 06:30 WBC 11.79 H RBC 3.59 L Hgb 10.6 L Hct 32.4 L MCV 90.3 MCH 29.5 MCHC 32.7 RDW 13.1 Plt Count 242 MPV 11.3 H Immature Gran % 1.4 Neutrophils % 65.2 Lymphocytes % 22.2 Monocytes % 10.9 Eosinophils % 0.2 Basophils % 0.1 Nucleated RBC % 0 Absolute Neutrophils 7.69 H Absolute Lymphocytes 2.62 Absolute Monocytes 1.29 H Absolute Eosinophils 0.02 Absolute Basophils 0.01 Sodium 138 Potassium 4.1 D Chloride 103 Carbon Dioxide 24.6 Anion Gap 10.4 BUN 29 H D Creatinine 1.6 H Estimated GFR/1.73 m2 41.90 Glucose 255 H Calcium 8.1 L Magnesium 2.0 Triglycerides 222 H Total Cholesterol 141 LDL Cholesterol, Calc 65 HDL Cholesterol 32 L
--- NOTE | 2021-02-21 11:41 | PGE_ITS ---
Date of Service Date of service: 02/21/21 Time of Service: 11:41 Assessment and Plan Assessment and plan (1) Weakness on left side of face: Status: Acute Assessment and plan: no facial droop appreciated again today, moves all extremities with no focal deficits noted There is an H&P that was part of the packet of medical records sent to us from [facility], which was written in 01/2021, which says no facial droop. The patient did require assistance with feeding himself with his RUE on his last admission here. 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 will continue to treat medically and continue baby asa and high dose statin. will hold off on CTA as risks to kidneys outweigh benefits of obtaining and patient is poor candidate for any surgical procedure, although unlikely to be recommended regardless. Monitor on tele with neurochecks. awaiting OT and speech therapy consults. (2) Acute exacerbation of chronic obstructive pulmonary disease: Status: Acute (3) Acute CHF: Status: Acute Assessment and plan: Continue home torsemide. (4) IDDM (insulin dependent diabetes mellitus): Status: Chronic Assessment and plan: Resume outpatient lantus; continue SSI (5) Agitation: Status: Acute Assessment and plan: acute delirium in patient with dementia and behavioral disturbance likely secondary to hospital environment. continue sitter and prn medication as needed. (6) Palliative care patient: Status: Acute (7) Discharge planning issues: Status: Acute Assessment and plan: case management following for discharge planning anticipate back to [facility] and rehab when ready. discussed with Dr George Subjective Subjective Interval history since last seen: patient confused and delirious overnight, not cooperative with speech evaluation. remains hemodynamically stable Exam Const Nutritional Appearance: average body habitus [facility] Head: normal to inspection Face and sinus: normal facial exam Mouth: mucous membranes dry Eyes General: appearance normal, both eyes and all related structures Neck Neck: normal visual inspection Resp Auscultation: wheezes lower bilaterally and upper bilaterally Cardio Rate: regular rate Rhythm: regular rhythm GI Inspection: normal to inspection Palpation: soft and nontender Auscultation: normal bowel sounds Skin General skin exam: no rashes or lesions noted Neuro General: patient awake Cognition: normal cognition Speech: speech normal Motor: muscle tone normal throughout Sensory Exam: no sensory deficits noted Extrem General: normal to inspection, full ROM, capillary refill normal, no calf tenderness bilaterally and no edema Psych Appearance: grossly normal Mental Status: mental status grossly normal Speech and Movement: speech and movement normal Affect: normal affect Objective Last Vital Signs Temp 36.7 C 02/20/21 23:15 Pulse 88 02/21/21 07:02 Resp 20 02/20/21 23:15 BP 145/67 H 02/20/21 23:15 Pulse Ox 95 02/20/21 23:15 Laboratory Results - last 24 hr 02/21/21 02/21/21 06:30 06:30 WBC 11.79 H RBC 3.59 L Hgb 10.6 L Hct 32.4 L MCV 90.3 MCH 29.5 MCHC 32.7 RDW 13.1 Plt Count 242 MPV 11.3 H Immature Gran % 1.4 Neutrophils % 65.2 Lymphocytes % 22.2 Monocytes % 10.9 Eosinophils % 0.2 Basophils % 0.1 Nucleated RBC % 0 Absolute Neutrophils 7.69 H Absolute Lymphocytes 2.62 Absolute Monocytes 1.29 H Absolute Eosinophils 0.02 Absolute Basophils 0.01 Sodium 138 Potassium 4.1 D Chloride 103 Carbon Dioxide 24.6 Anion Gap 10.4 BUN 29 H D Creatinine 1.6 H Estimated GFR/1.73 m2 41.90 Glucose 255 H Calcium 8.1 L Magnesium 2.0 Triglycerides 222 H Total Cholesterol 141 LDL Cholesterol, Calc 65 HDL Cholesterol 32 L
[2021-02-21] MEDS: Enoxaparin 30 MG/0.3 ML SYR SC (12:15)
[2021-02-21] MEDS: Insulin Aspart 300 UNITS/3 ML PEN SC ×3 (12:15→22:00)
[2021-02-21 13:38] LABS: Procalcitonin 0.2 ng/mL
--- NOTE | 2021-02-21 14:58 | PT.INNT ---
Date of service: 02/21/21 Time of Service: 14:58 PT Notes Visit Reasons: Acute Exacerbation of COPD,Respiratory Distress 02/21/2021 Hold PT today, as patient is not appropriate due to mentation and behaviors. Will attempt to resume PT services tomorrow morning, if appropriate.
[2021-02-21 15:00] VITALS: PULSE 68
--- NOTE | 2021-02-21 16:26 | NUR.NOTE ---
All 4 bed rails are up for patient safety at this time.
[2021-02-21 23:11] VITALS: BP 171/80; PULSE 67; RESP 22; TEMP 36.5; O2SAT 95
[2021-02-22] VITALS (7 sets, daily range): BP systolic 145–183; BP diastolic 69–98; PULSE 65–91; RESP 18–33; TEMP 36–36.7; O2SAT 94–97
[2021-02-22] MEDS: Albuterol/Ipratropium 3 ML UPD VIAL UPD ×2 (05:14→23:41)
[2021-02-22] MEDS: Tamsulosin 0.4 MG CAPCR PO (08:03)
[2021-02-22] MEDS: Losartan 50 MG TAB PO (08:03)
[2021-02-22] MEDS: Finasteride 5 MG TAB PO (08:04)
[2021-02-22] MEDS: Amoxicillin 875/Clav. 125 TAB PO ×2 (08:04→21:25)
[2021-02-22] MEDS: Pantoprazole 40 MG TABCR PO (08:04)
[2021-02-22] MEDS: risperiDONE 0.5 MG TAB PO ×2 (08:04→09:14)
[2021-02-22] MEDS: Aspirin E.C. 81 MG TABEC PO (08:04)
[2021-02-22] MEDS: predniSONE 20 MG TAB 40 MG PO (08:04)
[2021-02-22] MEDS: Potassium Chloride 20 MEQ TABCR 40 MEQ PO (08:04)
[2021-02-22] MEDS: Insulin Aspart 300 UNITS/3 ML PEN SC ×4 (08:04→21:22)
[2021-02-22] MEDS: Insulin Glargine 300 UNITS/3 ML PEN 30 UNITS SC (08:05)
--- NOTE | 2021-02-22 08:51 | W.SPSTP ---
Date of service: 02/22/21 Time of Service: 08:51 Objective/Assessment/Plan Assessment READY TO WEAR DEPARTMENT MANAGER Communication / Non-Treatment Note Current Diet texture/consistency: IDDSI 4/0 - pureed solids /thin liquids Pt has been combative, behavioral disturbance likely related to acute delirium in setting of dementia/hospital environment; Palliative to follow in SNF to assess agitation vs delirium s/p sepsis, currently requires 1:1 and assist with feeding, prn medication as of 02/21. Interval Hx: This READY TO WEAR DEPARTMENT MANAGER spoke with Nursing staff/Elizabet in AM, who reports pt had a good night; struggled this AM to get pills down whole, oral holding with larger pills; tolerating pureed well, 100% intake, no oral holding with puree during mealtime/breakfast, neg overt s/sx asp with thins; thins via cup only; unable to demonstrate straw propulsion despite ability to propel liquids via straw 02/20, RN suspects this may be due to fatigue/weakness secondary to medications provided. RN/staff ensuring patient remains upright during/after meals. Pt/caregiver/staff education: continue monitoring for SOB, aspiration precautions. May provide medications crushed in puree with thin liquid wash per MD/Pharmacist clearance Plan: READY TO WEAR DEPARTMENT MANAGER to discuss pt status/appropriateness for READY TO WEAR DEPARTMENT MANAGER treatment in afternoon on this date, continue to monitor/follow up PRN. Current Recommendations: Continue to recommend SNF READY TO WEAR DEPARTMENT MANAGER services upon discharge once medically cleared. Diet Texture Modification(s): IDDSI Level(s) 4-pur?ed solids, 0 thin liquids Medication Intake: Whole with 0-Thin Liquids, may trial pills whole in 4-Extremely Thick Liquids/Pureed solids as tolerated with thin liquid wash Alter medications only as advised by MD or Pharmacist RISK MANAGEMENT: Oral hygiene BID/2x per day, and before/after PO intake using friction with toothbrush on all oral structures as tolerated HOB upright as tolerated; upright for all PO intake. Encourage physical mobility as tolerated. Level of Assistance/Supervision: 1:1 assist for all PO intake, primarily for use of risk management strategies as outlined PO intake only when awake/alert Strategies/Adaptations/Assistive Equipment: Reduce auditory and/or visual distractions when eating, Provide verbal and/or visual cues to use recommended strategies, Small sips and bites when eating, Slow rate of intake, Swallow between bites, Controlled sips by straw only (not self-administered), Alternate intake of liquids and solids, if patient reports shortness of breath, stop p.o. intake and resume when RR has recovered Communication: For Patient: Encourage repetition from patient if unable to comprehend speech; slow rate of speech; increased vocal intensity from patient Body Language: Open and relaxed. Ensure eye contact. Stand or sit where patient can see and hear you as clearly as possible ? usually this will be in front of them, and with your face well-lit. Try to be at eye-level, rather than standing over them. Speaking/Listening: Communicate clearly and calmly. Go at a slightly slower pace than usual if the person is struggling to follow you; Allow time between sentences for the person to process the information and respond. Use short, simple sentences - Avoid childish talk, speaking sharply/raising your voice. Try to communicate in a conversational way, rather than asking question after question which may feel quite tiring or intimidating. Try to let the patient complete their own sentences, avoiding assumptions that you know what they are trying to say. Include the patient in conversations with others, using their name whenever possible. If patient fatigues frequently - short, regular conservations are typically best. Prompts: using visual/tactile cues vs verbal only, ie pointing at a photo of someone or encouraging the person to hold/interact with an object you are talking about. Posture/Positioning Needs: Maintain upright position at least 30 minutes after meals, Avoid meals/snacks 2-3 hours prior to reclining/sleeping, Sleep with head of bed elevated to reduce likelihood of nocturnal reflux Ensure patient is at midline Specialist referrals: N/A Ancillary tests: N/A Therapy: 1-3x/week PRN until discharged/medically cleared for discharge to SNF; recommend READY TO WEAR DEPARTMENT MANAGER re-evaluation upon discharge given reintroduction to SNF environment/need for updated recommendations/staff training in home setting as appropriate Susy Bunch MA [facility]3]-READY TO WEAR DEPARTMENT MANAGER Speech-Language Pathologist DC#[phone] Coding
--- NOTE | 2021-02-22 10:00 | W.PM.PROGNOT ---
Date of Service Date of service: 02/22/21 Time of Service: 12:25 Assessment and Plan Assessment and plan (1) Agitation: Status: Acute Assessment and plan: acute delirium in patient with dementia and behavioral disturbance likely secondary to hospital environment. continue sitter and prn medication as needed. increasing risperidone to 1 mg po bid (2) Weakness on left side of face: Status: Acute Assessment and plan: no facial droop appreciated again today, moves all extremities with no focal deficits noted There is an H&P that was part of the packet of medical records sent to us from [facility], which was written in 01/2021, which says no facial droop. The patient did require assistance with feeding himself with his RUE on his last admission here. 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 will continue to treat medically and continue baby asa and high dose statin. will hold off on CTA as risks to kidneys outweigh benefits of obtaining and patient is poor candidate for any surgical procedure, although unlikely to be recommended regardless awaiting OT and speech therapy consults. (3) Acute exacerbation of chronic obstructive pulmonary disease: Status: Acute (4) Acute CHF: Status: Acute Assessment and plan: Continue home torsemide. (5) IDDM (insulin dependent diabetes mellitus): Status: Chronic Assessment and plan: Resume outpatient lantus; continue SSI (6) Palliative care patient: Status: Acute (7) Discharge planning issues: Status: Acute Assessment and plan: case management following for discharge planning anticipate back to [facility] and rehab when ready. discussed with Dr George Subjective Subjective Interval history since last seen: able to eat breakfast, remains confused Exam Const Nutritional Appearance: average body habitus [facility] Head: normal to inspection Face and sinus: normal facial exam Mouth: mucous membranes dry Eyes General: appearance normal, both eyes and all related structures Neck Neck: normal visual inspection Resp Auscultation: wheezes lower bilaterally and upper bilaterally Cardio Rate: regular rate Rhythm: regular rhythm GI Inspection: normal to inspection Palpation: soft and nontender Auscultation: normal bowel sounds Skin General skin exam: no rashes or lesions noted Neuro General: patient awake Cognition: normal cognition Speech: speech normal Motor: muscle tone normal throughout Sensory Exam: no sensory deficits noted Extrem General: normal to inspection, full ROM, capillary refill normal, no calf tenderness bilaterally and no edema Psych Appearance: grossly normal Mental Status: mental status grossly normal Speech and Movement: speech and movement normal Affect: normal affect Objective Last Vital Signs Temp 36.0 C L 02/22/21 08:38 Pulse 91 H 02/22/21 08:38 Resp 18 02/22/21 08:38 BP 145/69 H 02/22/21 08:38 Pulse Ox 95 02/22/21 08:38 Laboratory Results - last 24 hr 02/21/21 06:30 Procalcitonin 0.2
--- NOTE | 2021-02-22 10:05 | CMPROGNOTE_ITS ---
- If Service Date Differs Date of service: 02/22/21 Time of Service: 10:05 Care Management Progress Note S/O: Crow was snoring in bed each time CM checked on him today. Crow was not able to participate in PT again today due to change in mentation. Anticipate he will transfer back to [facility] and rehab when ready. A: 80 year old male admitted to [facility] on 02/18/2021 for acute COPD exacerbation, Respiratory Distress P: Anticipate Crow will discharge back to [facility] and Rehab via facility van when medically cleared by provider. He will follow up with community providers and discharge plan of care as prescribed.
[2021-02-22] MEDS: diphenhydrAMINE 50 MG/ML VIAL 25 MG IVP ×2 (10:21→15:45)
[2021-02-22] MEDS: LORazepam 2 MG/ML VIAL 1 MG IVP ×2 (10:21→15:45)
[2021-02-22] MEDS: Enoxaparin 30 MG/0.3 ML SYR SC (12:05)
--- NOTE | 2021-02-22 15:14 | PT.INNT ---
Date of service: 02/22/21 Time of Service: 15:14 PT Notes Visit Reasons: Acute Exacerbation of COPD,Respiratory Distress 02/22/2021 Per nursing, patient not able to participate in PT today due to change in mentation.
[2021-02-22 18:20] LABS: Source Nasal/Nares
[2021-02-22 20:28] LABS: COVID-19 PCR Negative (Negative)
[2021-02-22] MEDS: risperiDONE 0.5 MG TAB 1 MG PO (21:23)
[2021-02-22] MEDS: Atorvastatin 40 MG TAB 80 MG PO (21:25)
[2021-02-23 03:37] VITALS: BP 160/74; PULSE 81; RESP 28; TEMP 36.5; O2SAT 97
[2021-02-23] MEDS: Albuterol/Ipratropium 3 ML UPD VIAL UPD ×2 (05:17→17:09)
[2021-02-23 07:24] LABS: HCT 37.1 % (40.0-50.0); MCH 29.4 pg (27.0-33.0); MCHC 32.3 % (32.0-36.0); MCV 90.9 fL (80-95); MPV 11.4 fL (8.0-11.0); Platelet Count 238 10^3/uL (130-400); RBC 4.08 10^6/uL (4.36-5.78); RDW 13.1 % (11.8-14.1); RDW-SD 43.4 fL; WBC 15.96 10^3/uL (4.4-10.8)
[2021-02-23] MEDS: diphenhydrAMINE 50 MG/ML VIAL 25 MG IVP ×2 (08:12→13:55)
[2021-02-23] MEDS: LORazepam 2 MG/ML VIAL 1 MG IVP ×2 (08:12→13:55)
[2021-02-23 08:26] VITALS: BP 124/60; PULSE 90; RESP 20; TEMP 36.8; O2SAT 97
--- NOTE | 2021-02-23 08:41 | PDOC.CMPRO ---
- If Service Date Differs Date of service: 02/23/21 Time of Service: 08:41 Care Management Progress Note S/O: Crow was snoring in bed each time CM checked on him today. No changes to report today, per provider note he is still confused and uncooperative with his care and medication, unable to work with PT/OT. He is cleared from a medical stand point and was scheduled to discharge back to [facility] and rehab today at 1pm. However, the Rehab center declined his admission and feel that he does not meet criteria for admission right now. Anticipate he will transfer back to [facility] and Rehab when he meets criteria for admission. While we wait, CM spoke with patient's who gave permission for CM to send a referral to be sent to the [facility]. CM will continue to support discharge planning needs. A: 80 year old male admitted to [facility] on 02/18/2021 for acute COPD exacerbation, Respiratory Distress P: Anticipate Crow will discharge back to [facility] and Rehab via facility van when medically cleared by provider. Referral was faxed to [facility] today. He will follow up with community providers and discharge plan of care as prescribed.
--- NOTE | 2021-02-23 08:57 | PT.INDS ---
Date of service: 02/23/21 Time of Service: 08:57 PT Notes Visit Reasons: Acute Exacerbation of COPD,Respiratory Distress Physical Therapy Inpatient Discharge Summary Date: 02/23/2021 Dates of Service: 02/19/2021 only (Unable to participate in therapy with attempts done from 02/20/2021 through 02/22/2021) This is a clinical summary of care provided for the duration of dates listed above. No charge was made in the completion of this documentation. Referring Doctor: Violetta George MD PT Orders: PT CONSULT: Limited ability Precautions: Fall. Standard. Activity as tolerated. Patient Profile/Admitting Diagnosis: Crow is a 80-year-old male who presented to the ED from [facility] on 02/18/2021 due to increasing shortness of breath. Patient is diagnosed with COPD exacerbation and respiratory distress. PMHX: Active Problem List (Updated 02/18/21 @ 11:25 by Ofe Jordan DO) Acute exacerbation of chronic obstructive pulmonary disease (Acute) Acute CHF (Acute) Discharge planning issues (Acute) DVT prophylaxis (Acute) IDDM (insulin dependent diabetes mellitus) (Chronic) Respiratory distress (Acute) Acute exacerbation of chronic obstructive pulmonary disease (COPD) (Acute) Sepsis (Acute) HCAP (healthcare-associated pneumonia) (Acute) Acute kidney injury superimposed on chronic kidney disease (Acute) Medical History (Updated 02/18/21 @ 11:25 by Ofe Jordan DO) BPH (benign prostatic hyperplasia) Chronic kidney disease COPD (chronic obstructive pulmonary disease) Dementia Diabetes DNI (do not intubate) DNR (do not resuscitate) Surgical History (Updated 02/18/21 @ 15:58 by Violetta George MD) Midline sternotomy scar We are obtaining further surgical history to explain this Social History/Home Situation: Resident of SNF. Equipment Owned/DME: FWW Subjective: NT. See most recent REVENUE CYCLE ADMINISTRATOR notes. Objective: General Observation: NT. See most recent REVENUE CYCLE ADMINISTRATOR notes. Mental Status: NT. See most recent REVENUE CYCLE ADMINISTRATOR notes. Pain: NT. See most recent REVENUE CYCLE ADMINISTRATOR notes. Vital Signs: NT. See most recent REVENUE CYCLE ADMINISTRATOR notes. ROM: Right Upper Extremity: Shoulder Flexion WFL. Shoulder abduction WFL. Elbow flexion WFL. Wrist flexion WFL. Functional opening and closing of hand WFL. Left Upper Extremity: Shoulder Flexion WFL. Shoulder abduction WFL. Elbow flexion WFL. Wrist flexion WFL. Functional opening and closing of hand WFL. Right Lower Extremity: Hip flexion WFL. Hip abduction WFL. Knee flexion WFL. Ankle dorsiflexion to neutral only WFL. Ankle plantarflexion WFL. Left Lower Extremity: Hip flexion WFL. Hip abduction WFL. Knee flexion WFL. Ankle dorsiflexion to neutral only. Ankle plantarflexion WFL. Strength: Right Upper Extremity: Shoulder flexors 4-/5. Shoulder abductors 4-/5. Elbow flexors 4-/5. Elbow extensors 4-/5. Geological Engineer strong. Left Upper Extremity: Shoulder flexors 4-/5. Shoulder abductors 4-/5. Elbow flexors 4-/5. Elbow extensors 4-/5. Geological Engineer strong. Right Lower Extremity: Hip flexors 3+/5. Hip abductors 4-/5. Knee flexors 4-/5. Knee extensors 4-/5. Ankle dorsiflexors 3-/5. Ankle plantarflexors 5/5. Left Lower Extremity: Hip flexors 3+/5. Hip abductors 4-/5. Knee flexors 4-/5. Knee extensors 4-/5. Ankle dorsiflexors 3-/5. Ankle plantarflexors 5/5. Bed Mobility/Transfers: Supine to sit with minimal assist with HOB at 30 degrees Sit to stand with contact-guard assist Stand to sit with contact-guard assist Bed to reclining chair with assist Gait: When lucid, patient is able to perform level surface ambulation of 100 feet +100 feet requiring contact-guard assist. Erna decreased. Step height decreased. Step length decreased. Wheelchair follow provided for safety. Trunk slightly tilted to the right, mild plantar flexed. Moderate shortness of breath after ambulation activity. No LOB. Balance: Static Sitting: Good Dynamic Sitting: Fair Static Standing: Fair Dynamic Standing: Fair Assessment: Has had difficulty with engaging patient since start of care due to varying levels of alertness and cognitive levels. At start of care, required assist of 1 and the use of front wheeled walker for all mobility ADL performance to reduce fall risk. Moderate shortness of breath exhibited after ambulation activity with recovery after 3 to 5 minutes of rest. Oxygen saturation maintained at above 95% on room air even with activity. BUE/LE patient presents with clinical signs and symptoms consistent with current/admitting diagnoses that have resulted to mobility limitations, gait instability, generalized weakness, and overall ADL decline as demonstrated by the following impairment level findings: 1. Decreased strength to major muscle groups 2. Impaired standing balance 3. Impaired activity tolerance 4. Limitation of joint range of motion in B dorsiflexion (chronic) 5. Shortness of breath Impairments are contributing to the following functional limitations: 1. Decline in bed mobility skills 2. Decline in transfer skills 3. Difficulty with ambulation without assistive device and physical assistance 4. Increased completion time for mobility ADL performance 5. Increased risk for falls 6. Difficulty with managing steps alone safely Goals: Goals X1 week 1. Supine-Sit supervision NOT MET 2. Sit-Supine supervision NOT MET 3. Sit-Stand supervision NOT MET 4. Stand-Sit standby assist with FWW NOT MET 5. Bed-Chair standby assist with FWW NOT MET 6. Chair-Bed standby assist with FWW NOT MET 7. Standby assist gait on level surface with use of [] for at least [] feet without report of pain nor dyspnea NOT MET 8. Good static and dynamic standing balance/tolerance NOT MET DISCHARGE RECOMMENDATIONS: [] Home with no services [] [] Home with services [specify] [] Home with outpatient PT [] [] SNF for continued rehabilitation [] [X] [facility]. Return to SNF when medically cleared by hospitalist. Continue physical therapy to maximize mobility level using front wheeled walker. [] SNF versus LTC based on ability to participate and progress [] TREATMENT CODE/TIME: UT Thank you for the opportunity to participate in the care of this patient. Nela Paige PT, DPT, CLT [facility] [place], [place]
--- NOTE | 2021-02-23 09:23 | NUR.NOTE ---
Nursing Note: FENDER MECHANIC APPRENTICE attempted to give pt his morning medications at roughly 0800. At this time pt willingly took a bite of applesauce with medications in it and then spat it in FENDER MECHANIC APPRENTICE face, and proceeded to start swinging arms in attempt to hit staff. Deescalation was attempted however pt continued to become combative as well as trying to pull out his castillo catheter. Lorazapam and Benadryl IM was given per PRN orders. pt still continuing to be combative at this time. CC and aware.
--- NOTE | 2021-02-23 13:46 | OT.INNT ---
Date of service: 02/23/21 Time of Service: 07:15 Occupational Therapy Notes 02/23/21 OT has attempted to see pt and has been unsuccessful the past couple days. OT will attempt again tomorrow. If pt is still unable to participate OT will plan to discharge OT order at this time. Shantal Kauffman, OTR/L
--- NOTE | 2021-02-23 15:22 | PGE_ITS ---
Date of Service Date of service: 02/23/21 Time of Service: 15:22 Assessment and Plan Assessment and plan (1) Agitation: Status: Acute Assessment and plan: acute delirium in patient with dementia and behavioral disturbance likely secondary to hospital environment. continue sitter and prn medication as needed. increasing risperidone to 1 mg po bid (2) Weakness on left side of face: Status: Acute Assessment and plan: no facial droop appreciated again today, moves all extremities with no focal deficits noted There is an H&P that was part of the packet of medical records sent to us from [facility], which was written in 01/2021, which says no facial droop. The patient did require assistance with feeding himself with his RUE on his last admission here. 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 will continue to treat medically and continue baby asa and high dose statin. will hold off on CTA as risks to kidneys outweigh benefits of obtaining and patient is poor candidate for any surgical procedure, although unlikely to be recommended regardless awaiting OT and speech therapy consults. (3) Acute exacerbation of chronic obstructive pulmonary disease: Status: Acute (4) Acute CHF: Status: Acute Assessment and plan: Continue home torsemide. (5) IDDM (insulin dependent diabetes mellitus): Status: Chronic Assessment and plan: Resume outpatient lantus; continue SSI (6) Palliative care patient: Status: Acute (7) Discharge planning issues: Status: Acute Assessment and plan: case management following for discharge planning anticipate back to [facility] when ready. discussed with Dr George Subjective Subjective Patient reports: no new complaints and afebrile; denies shortness of breath Interval history since last seen: still confused and uncooperative with care and medication, unable to work with PT/OT. Exam Const Nutritional Appearance: average body habitus HENSC Head: normal to inspection Face and sinus: normal facial exam Mouth: mucous membranes dry Eyes General: appearance normal, both eyes and all related structures Neck Neck: normal visual inspection Resp Auscultation: wheezes lower bilaterally and upper bilaterally Cardio Rate: regular rate Rhythm: regular rhythm GI Inspection: normal to inspection Palpation: soft and nontender Auscultation: normal bowel sounds Skin General skin exam: no rashes or lesions noted Neuro General: patient awake Cognition: normal cognition Speech: speech normal Motor: muscle tone normal throughout Sensory Exam: no sensory deficits noted Extrem General: normal to inspection, full ROM, capillary refill normal, no calf tenderness bilaterally and no edema Psych Appearance: grossly normal Mental Status: mental status grossly normal Speech and Movement: speech and movement normal Affect: normal affect Objective Last Vital Signs Temp 36.8 C 02/23/21 08:26 Pulse 90 02/23/21 08:26 Resp 20 02/23/21 08:26 BP 124/60 02/23/21 08:26 Pulse Ox 97 02/23/21 08:26 Laboratory Results - last 24 hr 02/22/21 02/23/21 18:12 06:28 WBC 15.96 H RBC 4.08 L Hgb 12.0 L Hct 37.1 L MCV 90.9 MCH 29.4 MCHC 32.3 RDW 13.1 Plt Count 238 MPV 11.4 H COVID-19 Source Nasal/Nares SARS-CoV-2 (PCR) Negative
[2021-02-23 15:45] VITALS: BP 180/89; PULSE 81; RESP 32; TEMP 36.5; O2SAT 94
[2021-02-23] MEDS: Insulin Aspart 300 UNITS/3 ML PEN SC ×2 (16:52→22:05)
[2021-02-23 19:39] VITALS: BP 149/65; PULSE 80; RESP 28; TEMP 36.6; O2SAT 94
[2021-02-23 23:41] VITALS: BP 150/65; PULSE 84; RESP 28; TEMP 36.6; O2SAT 94
[2021-02-24] VITALS (7 sets, daily range): BP systolic 115–165; BP diastolic 62–74; PULSE 62–78; RESP 4–28; TEMP 36.6–36.8; O2SAT 94–96
[2021-02-24] MEDS: Albuterol/Ipratropium 3 ML UPD VIAL UPD ×4 (00:15→17:23)
[2021-02-24] MEDS: Tamsulosin 0.4 MG CAPCR PO (07:47)
[2021-02-24] MEDS: Potassium Chloride 20 MEQ TABCR 40 MEQ PO (07:47)
[2021-02-24] MEDS: Losartan 50 MG TAB PO (07:47)
[2021-02-24] MEDS: Aspirin E.C. 81 MG TABEC PO (07:47)
[2021-02-24] MEDS: Amoxicillin 875/Clav. 125 TAB PO (07:47)
[2021-02-24] MEDS: Finasteride 5 MG TAB PO (07:48)
[2021-02-24] MEDS: risperiDONE 0.5 MG TAB 1 MG PO ×2 (07:48→19:09)
[2021-02-24] MEDS: Pantoprazole 40 MG TABCR PO (07:48)
[2021-02-24] MEDS: Insulin Glargine 300 UNITS/3 ML PEN 30 UNITS SC (08:21)
[2021-02-24] MEDS: Insulin Aspart 300 UNITS/3 ML PEN SC ×4 (08:22→22:14)
[2021-02-24 08:28] LABS: Abs Immature Grans 0.11 10^3/uL (0.0-0.06); Absolute Basophil Count 0.02 10^3/uL (0.0-0.2); Absolute Monocyte Count 1.12 10^3/uL (0.1-0.8); Absolute Neutrophil Count 15.46 10^3/uL (1.2-6.7); Basophils % 0.1; Eosinophils % 0.6; HCT 36.2 % (40.0-50.0); HGB 11.6 g/dL (13.5-17.5); Immature Grans % 0.6; MCH 29.4 pg (27.0-33.0); MCV 91.9 fL (80-95); MPV 10.7 fL (8.0-11.0); Monocytes % 5.9; Neutrophils % 81.8; Nucleated RBC 0 %; Platelet Count 276 10^3/uL (130-400); RBC 3.94 10^6/uL (4.36-5.78); RDW 13.3 % (11.8-14.1); RDW-SD 45.1 fL
[2021-02-24 08:33] LABS: Absolute Eosinophil Count 0.11 10^3/uL (0.0-0.7); Absolute Lymphocyte Count 2.08 10^3/uL (1.2-3.4)
[2021-02-24 08:34] LABS: Anion Gap 8.4 mmol/L (3-11); BUN 30 mg/dL (7-18); CO2 24.6 mmol/L (21.0-32.0); CREATININE 1.4 mg/dL (0.70-1.30); Calcium 8.6 mg/dL (8.5-10.1); Chloride 107 mmol/L (98-107); Estimated GFR 48.89 (mL/min/1.73m2); Glucose 215 mg/dL (74-106); Magnesium 2.3 mg/dL (1.8-2.4); Potassium 4.5 mmol/L (3.5-5.1); Sodium 140 mmol/L (136-145)
--- NOTE | 2021-02-24 08:46 | PDOC.CMPRO ---
- If Service Date Differs Date of service: 02/24/21 Time of Service: 08:46 Care Management Progress Note S/O: Per MD and RNCC Crow is much more at baseline this morning and cooperative with care. MD attributes previous behavior to delirium. Awaiting determination from SNF on his return to their facility. CM talked to his sister, Gisell and updated on presentation and current plan. CM will continue to support discharge planning needs. A: 80 year old male admitted to [facility] on 02/18/2021 for acute COPD exacerbation, Respiratory Distress P: Anticipate Crow will discharge back to [facility] via facility van when medically cleared by provider. Referral faxed to [facility] as well.
[2021-02-24 09:13] LABS: Procalcitonin 0.1 ng/mL
[2021-02-24] MEDS: Mometasone 220 MCG 14 DOSE INHALER IH (10:40)
[2021-02-24] MEDS: Enoxaparin 30 MG/0.3 ML SYR SC (11:44)
--- NOTE | 2021-02-24 14:33 | W.SPSTP ---
Date of service: 02/24/21 Time of Service: 13:15 Subjective Patient was contacted at bedside this date. Providing bosting/postural adjustment with help of RN/DOT COMPLIANCE SPECIALIST to ensure upright/midline posture. Utlizing reverse trendelenberg positioning in bed. patient initially somnolent, roused easily. Respiratory: Tolerating RA w/o s/sx dyspnea at baseline Mental status: Initially with minimal verbal responsiveness, increasing throughout session and eventually initiating/making requests of clinician (leona, if you keep taking the straw away I don't want to drink anything.). Not oriented to place/situation. Communication: Dysarthric, requiring frequent requests for repetition and providing cues for increased loudness, slow pace. Objective/Assessment/Plan Objective Treatment Techniques & Outcomes: 1. Patient will tolerate IDDSI Level(s) 4/1 (puree/mildly thick liquids) without s/sx aspiration provided training in/use of swallow strategies and aspiration precautions within 1 week. (GOAL UPDATED 02/24 to reflect current least restrictive diet) - IN PROGRESS Food items tested: [ ] None. Further swallow assessment not warranted at this time. [ ] Ice: [x] IDDSI 0: via straw, controlled sip and self-selected [x] IDDSI 1: via straw, controlled sip and self-selected [ ] IDDSI 2: [ ] IDDSI 3: [x] IDDSI 4: [ ] IDDSI 5: PATIENT REFUSED SOLID TRIALS [ ] IDDSI 6: PATIENT REFUSED SOLID TRIALS [ ] IDDSI 7: PATIENT REFUSED SOLID TRIALS [ ] Pill/tablet: Oral phase: [ ] WFL [ ] Leakage from mouth [ ] Difficulty with bolus manipulation [x] Difficulty with a-p transport [ ] Difficulty chewing [ ] Pocketing [x] Residue - diffuse linqual with puree/pudding. improved with sip liquid Pharyngeal phase: [ ] WFL [x] Delayed swallow initiation (suspected) [x] Reduced hyolaryngeal elevation/excursion - INCONSISTENT [x] Cough after swallow - delayed with multiple consec. bites pudding, immediate and delayed with thin liquids, especially when self-selecting sip size via straw [x] Voice change after swallow - thin liquids [ ] Throat clearing [ ] Endorsed stasis Strategies: - small sip size (with assist) - reduced but did not eliminate coughing - thickened liquids - eliminated coughing - extra swallows - improved wet vocal quality after purees - liquid wash after puree - improved wet vocal quality 2. Patient/caregivers will demonstrate understanding of education related to normal vs disordered swallowing, impact of current diagnoses on swallow function, relationship between respiration and deglutition, and recommended strategies for minimizing risks of aspiration pna/airway occlusion within 1 week. - IN PROGRESS - see Caregiver/Staff education below. Patient/Caregiver/Staff Education: - Rationale for thickened liquids this date and reiterated rationale for safe swallow strategies as below. - Rationale/instruction for suction oral care kits and increased frequency of oral care to reduce oral bacterial load and increase oral comfort Assessment While patient appearing with somewhat improved mental status over previous days (per RN description), he demonstrates increased s/sx aspiration, zoltan. with thin liquids, over initial evaluation earlier this week. Additionally, patient is unable to control sip size and states preference for increased independence with liquid consumption. Recommend mildly thickened liquids (IDDSI level 1) over the weekend until TOILET AND LAUNDRY SOAP SUPERVISOR can re-evaluate. OK to continue to provide popsicles as long as reg. oral care is provided. If patient is D/C'd to [facility] rehab before then, continue to recommend TOILET AND LAUNDRY SOAP SUPERVISOR re-evaluation upon discharge given reintroduction to SNF environment/need for updated recommendations/staff training in home setting. Improved oral care will be paramount in reducing patients mod risk of aspiration related pulmonary complication given dysphagia in setting of COPD and dementia. As he is unable to inhibit swallow response (vs rinse/spit) during oral care, staff should use suction oral care kits BID and before/after meals whenever possible for safety as well as oral comfort. Plan Plan: TOILET AND LAUNDRY SOAP SUPERVISOR to f/u 1-3x/week PRN until discharged/medically cleared for discharge to SNF; recommend TOILET AND LAUNDRY SOAP SUPERVISOR re-evaluation upon discharge given reintroduction to SNF environment/need for updated recommendations/staff training in home setting as appropriate Recommendations Other: Strategies/Adaptions: Pace rate of intake Recommendations: Current Recommendations: Continue to recommend SNF TOILET AND LAUNDRY SOAP SUPERVISOR services upon discharge once medically cleared. Diet Texture Modification(s): IDDSI Level(s) 4-pur?ed solids, 1 Mildly thickened liquids Medication Intake: Whole with 4-Extremely Thick Liquids/Pureed solids as tolerated with thickened liquid wash Alter medications only as advised by MD or Pharmacist RISK MANAGEMENT: Oral hygiene BID/2x per day, and before/after PO intake using ORAL CARE SUCTION KITS all oral structures as tolerated, may use moisturizing gel for comfort also. HOB upright as tolerated; upright for all PO intake. Encourage physical mobility as tolerated. Level of Assistance/Supervision: 1:1 assist for all PO intake, primarily for use of risk management strategies as outlined. Patient prefers independent sip selection by straw, which is why we opted for thickened liquids over the weekend. PO intake only when awake/alert Strategies/Adaptations/Assistive Equipment: Reduce auditory and/or visual distractions when eating, Provide verbal and/or visual cues to use recommended strategies, Small sips and bites when eating, Slow rate of intake, Swallow between bites, Small sips by straw with reminders - provide assist to control sip size if needed, Alternate intake of liquids and solids, if patient reports shortness of breath, stop p.o. intake and resume when RR has recovered Communication: For Patient: Encourage repetition from patient if unable to comprehend speech; slow rate of speech; increased vocal intensity from patient Body Language: Open and relaxed. Ensure eye contact. Stand or sit where patient can see and hear you as clearly as possible ? usually this will be in front of them, and with your face well-lit. Try to be at eye-level, rather than standing over them. Speaking/Listening: Communicate clearly and calmly. Go at a slightly slower pace than usual if the person is struggling to follow you; Allow time between sentences for the person to process the information and respond. Use short, simple sentences - Avoid childish talk, speaking sharply/raising your voice. Try to communicate in a conversational way, rather than asking question after question which may feel quite tiring or intimidating. Try to let the patient complete their own sentences, avoiding assumptions that you know what they are trying to say. Include the patient in conversations with others, using their name whenever possible. If patient fatigues frequently - short, regular conservations are typically best. Prompts: using visual/tactile cues vs verbal only, ie pointing at a photo of someone or encouraging the person to hold/interact with an object you are talking about. Posture/Positioning Needs: Maintain upright position at least 30 minutes after meals, Avoid meals/snacks 2-3 hours prior to reclining/sleeping, Sleep with head of bed elevated to reduce likelihood of nocturnal reflux Ensure patient is at midline Specialist referrals: N/A Ancillary tests: N/A Total Time Spent: 50 minutes Treat code: 51084 Swallow tx Coding
[2021-02-24] MEDS: Normal Saline Flush 10 ML SYR IVP (15:34)
[2021-02-24] MEDS: LORazepam 2 MG/ML VIAL 1 MG IVP (15:35)
--- NOTE | 2021-02-24 16:09 | PGE_ITS ---
Date of Service Date of service: 02/24/21 Time of Service: 16:09 Assessment and Plan Assessment and plan (1) Agitation: Start date: 02/24/21 Start time: 16:25 Status: Resolved Assessment and plan: Improved. He has not had any deliurium overnight or all day. He has not been behavioural continue sitter and prn medication as needed. risperidone was increased to 1 mg po bid (2) Weakness on left side of face: Start date: 02/24/21 Start time: 16:26 Status: Acute Assessment and plan: no facial droop appreciated again today, moves all extremities with no focal deficits noted There is an H&P that was part of the packet of medical records sent to us from [facility], which was written in 01/2021, which says no facial droop. The patient did require assistance with feeding himself with his RUE on his last admission here. 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 will continue to treat medically and continue baby asa and high dose statin. will hold off on CTA as risks to kidneys outweigh benefits of obtaining and patient is poor candidate for any surgical procedure, although unlikely to be recommended regardless Speech therapy feels he would benefit from mildly thickened liquids. Palliative following patient (3) Acute CHF: Start date: 02/24/21 Start time: 16:27 Status: Resolved Assessment and plan: wt is down, continue diuretics. (4) IDDM (insulin dependent diabetes mellitus): Start date: 02/24/21 Start time: 16:28 Status: Chronic Assessment and plan: Resume outpatient lantus; continue SSI (5) Palliative care patient: Start date: 02/24/21 Start time: 16:28 Status: Acute Assessment and plan: Seen by Dr. Zimmerman who recommended seroquel TID. This has seemed to be helpful (6) Discharge planning issues: Start date: 02/24/21 Start time: 16:29 Status: Acute Assessment and plan: case management following for discharge planning anticipate back to [facility] and rehab when ready. discussed with Dr George Subjective Subjective Patient reports: other Interval history since last seen: Patient lying in bed confused. WBC worse. Patient antibiotic changed to levaquin from augmentin. Awaiting bed placement at this time. He was behavioral however he has been cooperative and calm. No behavioral issues. Exam Const General: healthy appearing and comfortable Nutritional Appearance: average body habitus Orientation: alert, awake, not oriented x3 and oriented to person [facility] Head: normal to inspection Face and sinus: normal facial exam Mouth: mucous membranes dry Eyes General: appearance normal, both eyes and all related structures Neck Neck: normal visual inspection Resp Auscultation: wheezes lower bilaterally and upper bilaterally Cardio Rate: regular rate Rhythm: regular rhythm GI Inspection: normal to inspection Palpation: soft and nontender Auscultation: normal bowel sounds Skin General skin exam: no rashes or lesions noted Neuro General: patient awake Speech: speech normal Motor: muscle tone normal throughout Sensory Exam: no sensory deficits noted Extrem General: normal to inspection, full ROM, capillary refill normal, no calf tenderness bilaterally and no edema Psych Appearance: grossly normal Mental Status: mental status grossly normal Speech and Movement: speech and movement normal Affect: normal affect Objective Last Vital Signs Temp 36.8 C 02/24/21 15:51 Pulse 78 02/24/21 15:51 Resp 28 H 02/24/21 15:51 BP 148/74 H 02/24/21 15:51 Pulse Ox 94 02/24/21 15:51 Laboratory Results - last 24 hr 02/24/21 02/24/21 02/24/21 08:15 08:15 08:15 WBC 18.90 H RBC 3.94 L Hgb 11.6 L Hct 36.2 L MCV 91.9 MCH 29.4 MCHC 32.0 RDW 13.3 Plt Count 276 MPV 10.7 Immature Gran % 0.6 Neutrophils % 81.8 Lymphocytes % 11.0 Monocytes % 5.9 Eosinophils % 0.6 Basophils % 0.1 Nucleated RBC % 0 Absolute Neutrophils 15.46 H Absolute Lymphocytes 2.08 Absolute Monocytes 1.12 H Absolute Eosinophils 0.11 Absolute Basophils 0.02 Sodium 140 Potassium 4.5 Chloride 107 Carbon Dioxide 24.6 Anion Gap 8.4 BUN 30 H Creatinine 1.4 H Estimated GFR/1.73 m2 48.89 Glucose 215 H Calcium 8.6 Magnesium 2.3 Procalcitonin 0.1
[2021-02-24] MEDS: levoFLOXacin 500 MG, levoFLOXacin 250 MG 750 MG PO (17:12)
[2021-02-24 17:54] LABS: Bilirubin Negative (Negative); Blood Trace-lysed (Negative); Clarity Clear (Clear); Glucose Negative (Negative); Ketones Negative (Negative); Leukocyte Esterase Negative (Negative); Nitrite Negative (Negative); Specific Gravity 1.025 (1.005-1.025); Urobilinogen 0.2 EU/dL (Up TO 0.2)
[2021-02-24 18:03] LABS: WBC 0-2 HPF (0-5)
[2021-02-24 18:04] LABS: Bacteria Negative HPF (Negative); C & S Indicated? No; Casts Negative LPF (Negative); Crystals Negative HPF (Negative); Epithelial Cells Rare HPF (Negative); Mucus Negative (Negative)
[2021-02-24] MEDS: QUEtiapine 25 MG TAB PO (19:09)
[2021-02-24] MEDS: Atorvastatin 40 MG TAB 80 MG PO (19:09)
[2021-02-25] VITALS (10 sets, daily range): BP systolic 101–167; BP diastolic 49–79; PULSE 62–83; RESP 4–31; TEMP 36.2–37.1; O2SAT 94–99
[2021-02-25] MEDS: Albuterol/Ipratropium 3 ML UPD VIAL UPD ×4 (00:12→18:15)
[2021-02-25] MEDS: LORazepam 2 MG/ML VIAL 1 MG IVP ×4 (03:32→18:31)
[2021-02-25 07:00] LABS: Abs Immature Grans 0.11 10^3/uL (0.0-0.06); Absolute Lymphocyte Count 2.15 10^3/uL (1.2-3.4); Absolute Monocyte Count 1.31 10^3/uL (0.1-0.8); Basophils % 0.1; Eosinophils % 1.4; HCT 35.6 % (40.0-50.0); HGB 11.1 g/dL (13.5-17.5); Immature Grans % 0.5; Lymphocytes % 10.3; MCH 29.3 pg (27.0-33.0); MCHC 31.2 % (32.0-36.0); MCV 93.9 fL (80-95); MPV 11.1 fL (8.0-11.0); Monocytes % 6.3; Neutrophils % 81.4; Nucleated RBC 0 %; Platelet Count 234 10^3/uL (130-400); RBC 3.79 10^6/uL (4.36-5.78); RDW 13.4 % (11.8-14.1); WBC 20.86 10^3/uL (4.4-10.8)
[2021-02-25 07:01] LABS: Absolute Basophil Count 0.02 10^3/uL (0.0-0.2); Absolute Eosinophil Count 0.29 10^3/uL (0.0-0.7); Absolute Neutrophil Count 16.98 10^3/uL (1.2-6.7)
[2021-02-25 07:13] LABS: Anion Gap 5.9 mmol/L (3-11); BUN 33 mg/dL (7-18); CO2 27.1 mmol/L (21.0-32.0); CREATININE 1.7 mg/dL (0.70-1.30); Calcium 8.5 mg/dL (8.5-10.1); Chloride 109 mmol/L (98-107); Estimated GFR 39.07 (mL/min/1.73m2); Glucose 205 mg/dL (74-106); Potassium 4.8 mmol/L (3.5-5.1); Sodium 142 mmol/L (136-145)
[2021-02-25] MEDS: Aspirin E.C. 81 MG TABEC PO (08:49)
[2021-02-25] MEDS: Finasteride 5 MG TAB PO (08:49)
[2021-02-25] MEDS: Insulin Aspart 300 UNITS/3 ML PEN SC ×3 (08:49→16:49)
[2021-02-25] MEDS: Losartan 50 MG TAB PO (08:50)
[2021-02-25] MEDS: Insulin Glargine 300 UNITS/3 ML PEN 30 UNITS SC (08:50)
[2021-02-25] MEDS: Potassium Chloride 20 MEQ TABCR 40 MEQ PO (08:51)
[2021-02-25] MEDS: Torsemide 20 MG TAB PO (08:51)
[2021-02-25] MEDS: Tamsulosin 0.4 MG CAPCR PO (08:51)
[2021-02-25] MEDS: Pantoprazole 40 MG TABCR PO (08:51)
[2021-02-25] MEDS: risperiDONE 0.5 MG TAB 1 MG PO (08:51)
--- NOTE | 2021-02-25 09:19 | W.PM.PROGNOT ---
Date of Service Date of service: 02/25/21 Time of Service: 09:20 Assessment and Plan Assessment and plan (1) Yeast dermatitis of penis: Start date: 02/25/21 Start time: 09:00 Status: Acute Assessment and plan: Patient found to have yeast at tip of penis when foreskin restracted with erythema, will treat with oral diflucan and clotrimazole TID Catheter has not been exchanged in over a month will exchange catheter (2) Agitation: Start date: 02/25/21 Start time: 09:00 Status: Resolved Assessment and plan: Improved. He has not had any deliurium overnight or all day. He has not been behavioural continue sitter and prn medication as needed. risperidone was increased to 1 mg po bid (3) Weakness on left side of face: Start date: 02/25/21 Start time: 09:00 Status: Acute Assessment and plan: no facial droop appreciated again today, moves all extremities with no focal deficits noted There is an H&P that was part of the packet of medical records sent to us from [facility], which was written in 01/2021, which says no facial droop. The patient did require assistance with feeding himself with his RUE on his last admission here. 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 will continue to treat medically and continue baby asa and high dose statin. will hold off on CTA as risks to kidneys outweigh benefits of obtaining and patient is poor candidate for any surgical procedure, although unlikely to be recommended regardless Speech therapy feels he would benefit from mildly thickened liquids. Palliative following patient (4) Acute CHF: Start date: 02/25/21 Start time: 09:00 Status: Resolved Assessment and plan: wt is down, continue diuretics. (5) IDDM (insulin dependent diabetes mellitus): Start date: 02/25/21 Start time: 09:00 Status: Chronic Assessment and plan: Resume outpatient lantus; continue SSI (6) Palliative care patient: Start date: 02/25/21 Start time: 09:00 Status: Acute Assessment and plan: Seen by Dr. Zimmerman who recommended seroquel TID. This has seemed to be helpful (7) Discharge planning issues: Start date: 02/25/21 Start time: 09:00 Status: Acute Assessment and plan: case management following for discharge planning anticipate back to [facility] and rehab when ready. discussed with Dr castillo Subjective Subjective Interval history since last seen: Patient sleepy but arousable. Patient has not had castillo exchanged in over a month. Last urine cx grew enterococcus faeca. Penis with yeast. Will order diflucan and clotrimazole TID. WBC increased despite being off steroids he was on zoysin and vanco. Last sensitivites to cipro changed from augmentin to cipro. Exam Const General: healthy appearing and comfortable Nutritional Appearance: average body habitus Orientation: alert, awake, not oriented x3 and oriented to person HENMT Head: normal to inspection Face and sinus: normal facial exam Mouth: mucous membranes dry Eyes General: appearance normal, both eyes and all related structures Neck Neck: normal visual inspection Resp Auscultation: wheezes lower bilaterally and upper bilaterally Cardio Rate: regular rate Rhythm: regular rhythm GI Inspection: normal to inspection Palpation: soft and nontender Auscultation: normal bowel sounds Penis: penis abnormal (Tip of penis with yeast, erythema) Skin General skin exam: no rashes or lesions noted Neuro General: patient awake Speech: speech normal Motor: muscle tone normal throughout Sensory Exam: no sensory deficits noted Extrem General: normal to inspection, full ROM, capillary refill normal, no calf tenderness bilaterally and no edema Psych Appearance: grossly normal Mental Status: mental status grossly normal Speech and Movement: speech and movement normal Affect: normal affect Objective Last Vital Signs Temp 36.7 C 02/25/21 07:53 Pulse 72 02/25/21 07:53 Resp 28 H 02/25/21 07:53 BP 160/71 H 02/25/21 07:53 Pulse Ox 94 02/25/21 07:53 Laboratory Results - last 24 hr 02/24/21 02/25/21 02/25/21 17:15 06:25 06:25 WBC 20.86 H RBC 3.79 L Hgb 11.1 L Hct 35.6 L MCV 93.9 MCH 29.3 MCHC 31.2 L RDW 13.4 Plt Count 234 MPV 11.1 H Immature Gran % 0.5 Neutrophils % 81.4 Lymphocytes % 10.3 Monocytes % 6.3 Eosinophils % 1.4 Basophils % 0.1 Nucleated RBC % 0 Absolute Neutrophils 16.98 H Absolute Lymphocytes 2.15 Absolute Monocytes 1.31 H Absolute Eosinophils 0.29 Absolute Basophils 0.02 Sodium 142 Potassium 4.8 Chloride 109 H Carbon Dioxide 27.1 Anion Gap 5.9 BUN 33 H Creatinine 1.7 H Estimated GFR/1.73 m2 39.07 Glucose 205 H Calcium 8.5 Urine Color Yellow Urine Clarity Clear Urine pH 6.0 Ur Specific [place] 1.025 Urine Protein Trace H Urine Ketones Negative Urine Blood Trace-lysed H Urine Nitrite Negative Urine Bilirubin Negative Urine Urobilinogen 0.2 Ur Leukocyte Esterase Negative Urine RBC 3-5 H Urine WBC 0-2 Ur Epithelial Cells Rare Urine Crystals Negative Urine Bacteria Negative Urine Casts Negative Urine Mucus Negative Ur Culture Indicated? No Urine Glucose Negative
[2021-02-25] MEDS: Ciprofloxacin 250 MG TAB PO (10:10)
[2021-02-25] MEDS: Lidocaine 2% Jelly 11 ML SYR UR (10:11)
[2021-02-25] MEDS: Normal Saline 500 ML IV (10:11)
[2021-02-25] MEDS: Fluconazole 100 MG TAB PO (10:11)
--- NOTE | 2021-02-25 10:16 | WOUNDCARE ---
Wound Care Report Asked by charge nurse to look at the patients omer area, Areas of fungal rassh and yeast were identified. provider has ordered, topical and oral antifungal medication. and a new castillo catheter to be inserted . Peer nurse assisted with all above
[2021-02-25] MEDS: Clotrimazole 1% 15 GM TUBE TP ×3 (10:56→19:20)
[2021-02-25] MEDS: Mometasone 220 MCG 14 DOSE INHALER IH (10:57)
[2021-02-25] MEDS: Albuterol 2.5 MG/3 ML INH SOLN VIAL UPD ×2 (11:33→14:30)
[2021-02-25] MEDS: Enoxaparin 30 MG/0.3 ML SYR SC (11:37)
[2021-02-25] MEDS: Furosemide 20 MG/2 ML VIAL IVP (12:56)
[2021-02-25] MEDS: MAGNESIUM SULFATE 2 GM/50 ML BAG IVPB (12:56)
--- NOTE | 2021-02-25 13:01 | DI.RAD_ITS ---
Exam(s) XR PORTABLE CHEST AP EXAM: XR PORTABLE CHEST AP CLINICAL HISTORY: SOB TECHNIQUE: 2D digital imaging was performed of the chest. One image was obtained. An AP view was ob tained. COMPARISON: CR,XR XR PORTABLE CHEST AP from 02/18/2021 FINDINGS: MEDIASTINUM: Normal. HEART: Normal. Findings of a prior CABG. PULMONARY VASCULATURE: Normal. LUNGS: Clear. PLEURAL SPACE: No pleural effusion or pneumothorax. BONE:Within normal limits for the patient's age. Sternal wires are in place. OTHER FINDINGS:Normal. IMPRESSION: No acute pulmonary findings. DATA REPOSITORY: RADIATION DOSE DELIVERED:
--- NOTE | 2021-02-25 14:42 | DI.VRAD_ITS ---
PROCEDURE INFORMATION: Exam: XR Chest Exam date and time: 02/25/2021 12:16 PM Age: 80 years old Clinical indication: Other: SOB TECHNIQUE: Imaging protocol: XR of the chest. Views: 1 view. COMPARISON: CR XR PORTABLE CHEST AP 02/18/2021 9:45 AM FINDINGS: Lungs: Clear lungs. Pleural spaces: No sizable pleural effusion. No pneumothorax. Heart/Mediastinum: Cardiomediastinal silhouette is within normal limits. Bones/joints: No acute displaced fracture or dislocation. IMPRESSION: No acute cardiopulmonary process. Dictated and Authenticated by: Leoncio Krueger MD. Ordering:CHAVEZ Solis MD
[2021-02-25] MEDS: QUEtiapine 25 MG TAB PO (17:00)
[2021-02-26] VITALS (8 sets, daily range): BP systolic 107–137; BP diastolic 58–72; PULSE 84–96; RESP 4–25; TEMP 36.2–37.3; O2SAT 85–94
[2021-02-26] MEDS: Albuterol/Ipratropium 3 ML UPD VIAL UPD ×4 (00:37→17:55)
[2021-02-26] MEDS: LORazepam 2 MG/ML VIAL 1 MG IVP ×2 (00:48→21:31)
[2021-02-26] MEDS: Normal Saline Flush 10 ML SYR IVP (02:40)
[2021-02-26] MEDS: diphenhydrAMINE 50 MG/ML VIAL 25 MG IVP (02:40)
[2021-02-26] MEDS: Clotrimazole 1% 15 GM TUBE TP ×3 (09:28→21:37)
--- NOTE | 2021-02-26 09:35 | PGE_ITS ---
Date of Service Date of service: 02/26/21 Time of Service: 08:30 Assessment and Plan Assessment and plan (1) Yeast dermatitis of penis: Start date: 02/26/21 Start time: 08:30 Status: Acute Assessment and plan: Continue to apply yeast. Salguero exchanged 02/25 Continue care of shaft (2) Agitation: Start date: 02/26/21 Start time: 08:30 Status: Resolved Assessment and plan: Improved. He has not had any delirium overnight or this morning. Continues to be cooperative Sitter dcd and prn medication as needed. risperidone was increased to 1 mg po bid (3) Weakness on left side of face: Start date: 02/26/21 Start time: 08:30 Status: Resolved Assessment and plan: continues to show no new signs (4) Acute CHF: Start date: 02/26/21 Start time: 08:30 Status: Resolved Assessment and plan: wt is down, continue diuretics. (5) IDDM (insulin dependent diabetes mellitus): Start date: 02/26/21 Start time: 08:30 Status: Chronic Assessment and plan: Resume outpatient lantus; continue SSI (6) Palliative care patient: Start date: 02/26/21 Start time: 08:30 Status: Acute Assessment and plan: Seen by Dr. Zimmerman who recommended seroquel TID at this time prn. (7) Discharge planning issues: Start date: 02/26/21 Start time: 08:30 Status: Acute Assessment and plan: case management following for discharge planning anticipate back to [facility] and rehab when ready. discussed with Dr castillo Subjective Subjective Patient reports: other Interval history since last seen: Asleep, awakes with arousing when moving around to listen to lung sounds. No behavioral issues with provider. Cooperative with evaluation. Will place order for OOB to chair TID as tolerated. Switched to cipro. Repeat labs in am. Does not appear to have unlabored breathing. Not taking deep breaths, at risk for atelectasis. CXR negative. Catheter exchanged yesterday. Exam Const General: healthy appearing and comfortable Nutritional Appearance: average body habitus Orientation: alert, awake, not oriented x3 and oriented to person HENMT Head: normal to inspection Face and sinus: normal facial exam Mouth: mucous membranes dry Eyes General: appearance normal, both eyes and all related structures Neck Neck: normal visual inspection Cardio Jugular venous pressure: no JVD Rate: regular rate Rhythm: regular rhythm and other (shallow breaths) GI Inspection: normal to inspection Palpation: soft and nontender Auscultation: normal bowel sounds Penis: penis abnormal (Tip of penis with yeast, erythema) Skin General skin exam: no rashes or lesions noted Neuro General: patient awake Speech: speech normal Motor: muscle tone normal throughout Sensory Exam: no sensory deficits noted Extrem General: normal to inspection, full ROM, capillary refill normal, no calf tenderness bilaterally and no edema Psych Appearance: grossly normal Mental Status: mental status grossly normal Speech and Movement: speech and movement normal Affect: normal affect Objective Last Vital Signs Temp 37.3 C 02/26/21 08:43 Pulse 84 02/26/21 08:43 Resp 22 02/26/21 08:43 BP 137/72 02/26/21 08:43 Pulse Ox 92 02/26/21 08:43
[2021-02-26] MEDS: Ciprofloxacin 250 MG TAB PO ×2 (10:51→21:31)
[2021-02-26] MEDS: Aspirin E.C. 81 MG TABEC PO (10:51)
[2021-02-26] MEDS: Finasteride 5 MG TAB PO (10:52)
[2021-02-26] MEDS: Insulin Aspart 300 UNITS/3 ML PEN SC ×4 (10:52→22:35)
[2021-02-26] MEDS: Insulin Glargine 300 UNITS/3 ML PEN 30 UNITS SC (10:53)
[2021-02-26] MEDS: Mometasone 220 MCG 14 DOSE INHALER IH (10:54)
[2021-02-26] MEDS: Losartan 50 MG TAB PO (10:54)
[2021-02-26] MEDS: Pantoprazole 40 MG TABCR PO (10:55)
[2021-02-26] MEDS: Potassium Chloride 20 MEQ TABCR 40 MEQ PO (10:55)
[2021-02-26] MEDS: risperiDONE 0.5 MG TAB 1 MG PO (10:55)
[2021-02-26] MEDS: Tamsulosin 0.4 MG CAPCR PO (10:56)
[2021-02-26] MEDS: Albuterol 2.5 MG/3 ML INH SOLN VIAL UPD ×2 (11:16→21:31)
[2021-02-26] MEDS: Enoxaparin 30 MG/0.3 ML SYR SC (12:58)
[2021-02-26 13:16] LABS: Bilirubin Negative (Negative); Blood Moderate (Negative); Clarity Clear (Clear); Glucose Negative (Negative); Ketones Negative (Negative); Leukocyte Esterase Trace (Negative); Nitrite Negative (Negative); Specific Gravity 1.025 (1.005-1.025); Urobilinogen 0.2 EU/dL (Up TO 0.2); pH 5.5 (5-8)
[2021-02-26 13:23] LABS: Bacteria Few HPF (Negative); Casts 5-10 Hyaline LPF (Negative); Crystals Negative HPF (Negative); Epithelial Cells Rare HPF (Negative); Mucus Trace (Negative)
[2021-02-26 13:24] LABS: C & S Indicated? Yes
[2021-02-26] MEDS: QUEtiapine 25 MG TAB PO (21:15)
[2021-02-26] MEDS: Atorvastatin 40 MG TAB 80 MG PO (21:15)
[2021-02-27] MEDS: Albuterol/Ipratropium 3 ML UPD VIAL UPD ×2 (01:18→06:43)
[2021-02-27] MEDS: diphenhydrAMINE 50 MG/ML VIAL 25 MG IVP (04:23)
[2021-02-27] MEDS: Normal Saline Flush 10 ML SYR IVP (04:24)
[2021-02-27 06:43] VITALS: RESP 4; RESP 5
[2021-02-27] MEDS: Bisacodyl 10 MG SUPP PR (06:43)
[2021-02-27 07:21] VITALS: BP 101/57; PULSE 85; RESP 28; TEMP 36.1; O2SAT 100
[2021-02-27 07:40] LABS: Abs Immature Grans 0.12 10^3/uL (0.0-0.06); Absolute Basophil Count 0.04 10^3/uL (0.0-0.2); Absolute Lymphocyte Count 1.76 10^3/uL (1.2-3.4); Absolute Monocyte Count 1.64 10^3/uL (0.1-0.8); Basophils % 0.2; Eosinophils % 0.6; HCT 36.6 % (40.0-50.0); HGB 11.4 g/dL (13.5-17.5); Immature Grans % 0.6; Lymphocytes % 8.4; MCH 29.2 pg (27.0-33.0); MCHC 31.1 % (32.0-36.0); MCV 93.8 fL (80-95); MPV 11.3 fL (8.0-11.0); Monocytes % 7.8; Neutrophils % 82.4; Nucleated RBC 0 %; Platelet Count 224 10^3/uL (130-400); RDW 14.1 % (11.8-14.1); RDW-SD 48.2 fL; WBC 20.99 10^3/uL (4.4-10.8)
[2021-02-27 07:42] LABS: Absolute Eosinophil Count 0.13 10^3/uL (0.0-0.7)
--- NOTE | 2021-02-27 07:48 | PCPN_ITS ---
Date of service: 02/27/21 Time of Service: 07:48 Assessment and Plan Assessment and plan (1) Agitation: Status: Resolved (2) Acute exacerbation of chronic obstructive pulmonary disease (COPD): Status: Acute (3) Dementia: Status: Chronic (4) Palliative care patient: Status: Acute Assessment and plan: Patient is clearly different today. Per staff he has been cooperative and not agitated overnight. Today he seems difficult to arouse. Of note his white count and creatinine are both up without any clear source. I did call up his Annabel on both her cell and her home phone to talk about goals of care and perhaps moving towards comfort care. Unfortunately I left messages at both her cell and home but was unable to speak to me laying directly. I would recommend the patient is transitioned to comfort measures. Subjective Subjective Interval history since last seen: I went to see Crow today. I did talk to him, he did not respond. 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 He did not respond. He was breathing, but somewhat labored. His eyes were closed Exam Narrative Exam Narrative: Patient was lying in bed with closed eyes. He did not open them despite me calling his name, doing gentle sternal rub, or listening to his heart and lungs. Const General: frail appearing Nutritional Appearance: average body habitus Orientation: other (Lying in his bed, no response) Resp Effort & Inspection: abnormal respiratory pattern Auscultation: diminished lung sounds Cardio Rate: regular rate GI Palpation: soft Auscultation: normal bowel sounds Objective Last Vital Signs Temp 97.0 F L 02/27/21 07:21 Pulse 85 02/27/21 07:21 Resp 28 H 02/27/21 07:21 BP 101/57 L 02/27/21 07:21 Pulse Ox 100 02/27/21 07:21 Laboratory Results - last 24 hr 02/26/21 13:00 Urine Color Yellow Urine Clarity Clear Urine pH 5.5 Ur Specific [place] 1.025 Urine Protein Negative Urine Ketones Negative Urine Blood Moderate H Urine Nitrite Negative Urine Bilirubin Negative Urine Urobilinogen 0.2 Ur Leukocyte Esterase Trace H Urine RBC 10-20 H Urine WBC 5-10 Ur Epithelial Cells Rare Urine Crystals Negative Urine Bacteria Few Urine Casts 5-10 Hyaline Urine Mucus Trace Ur Culture Indicated? Yes Urine Glucose Negative
[2021-02-27 07:49] LABS: Anion Gap 9.9 mmol/L (3-11); BUN 44 mg/dL (7-18); C-Reactive Protein 7.48 mg/dL (0.0-0.3); CO2 23.1 mmol/L (21.0-32.0); CREATININE 2.6 mg/dL (0.70-1.30); Chloride 111 mmol/L (98-107); Estimated GFR 23.93 (mL/min/1.73m2); Glucose 259 mg/dL (74-106); Potassium 5.1 mmol/L (3.5-5.1); Sodium 144 mmol/L (136-145)
[2021-02-27 07:53] LABS: Burr Cells (echinocyte) 2+; Diff Comment Diff Reviewed
[2021-02-27] MEDS: Clotrimazole 1% 15 GM TUBE TP (08:04)
[2021-02-27] MEDS: Insulin Aspart 300 UNITS/3 ML PEN SC (08:04)
[2021-02-27] MEDS: Insulin Glargine 300 UNITS/3 ML PEN 30 UNITS SC (08:04)
--- NOTE | 2021-02-27 08:57 | W.PM.DS.N ---
Date of service: 02/27/21 Time of Service: 08:58 DS: Diagnosis Discharge Diagnosis (1) Palliative care patient: Start date: 02/27/21 Start time: 09:08 Status: Acute Asessment and Plan: Does not eat much slowly declining as below Palliative will follow at [facility] (2) Yeast dermatitis of penis: Start date: 02/27/21 Start time: 08:58 Status: Acute Asessment and Plan: Given 2 doses po diflucan with TID clotrimazole, continue to cleanse area and keep dry. Castillo just exchanged concern for UTI continue cipro and add doxy, also with clotimrazole. He is severely demented, likely declining, he would be appropriate for hospice Repeat cbc in 3 days (3) Agitation: Start date: 02/27/21 Start time: 09:03 Status: Resolved Asessment and Plan: Seroquel BID with PRN dosing No behavioral issues, accepted back to [facility] where he was (4) Weakness on left side of face: Start date: 02/27/21 Start time: 09:05 Status: Resolved Asessment and Plan: No new signs (5) Acute CHF: Start date: 02/27/21 Start time: 09:09 Status: Resolved Asessment and Plan: wt is 71.7 down from 77 on admission (6) IDDM (insulin dependent diabetes mellitus): Start date: 02/27/21 Start time: 09:10 Status: Chronic Asessment and Plan: will restart regular medicaitons on discharge. discussed with Dr. Perrin Discharge Plan Disposition Patient Disposition: SNF (LEVEL 1) [facility] Condition: Stable Discharge Details Reason For Visit: Acute Exacerbation of COPD,Respiratory Distress Admit Date/Time: 02/18/21 11:11 Admit Provider: Violetta George Attending Provider: Violetta George Primary Care Provider: Arash Amado Hospital Course Hospital Course: Mr Naylor is a 80 year old male with PMHx of IDDM2, O2-requiring COPD (2L prn), CAD, CHF (?EF), CKD, HTN, BPH, dementia, who was discharged from our facility to [facility] on 02/15/21 after an admission for HCAP, who was sent to [facility] for worsening work of breathing/respiratory distress. In the ED, he was placed on BiPAP to help with the work of breathing. His workup is consistent with COPD exacerbation with a fluid overload component. He was initiated on steroids, nebulizer treatments, empiric antibiotics given leucocytosis and elevated procalcitonin, as well as diuresis. Hospitalist admission was requested. Over course of treatment he was weaned off antibiotics and steroids. He was then found to have yeast on the shaft and tip of his penis. He was given a dose of diflucan x 2 and clotrimzaole TID with cleansing. His castillo was not exchanged until Sunday 02/25, he was then started on cipro bid and will add doxy as well. He is being seen by palliative and declining. He would likely qualify for hospice at this time. He is being discharged back to [facility] will recheck labs in 3 days Home Meds and New Rx's Prescriptions: New doxycycline hyclate 100 mg Capsule 100 mg PO BID Qty: 13 RF: 0 ciprofloxacin HCl 250 mg Tablet 250 mg PO Q12H Qty: 11 RF: 0 clotrimazole 1 % Cream 1 applic topical TID Qty: 45 RF: 2 quetiapine 25 mg Tablet 25 mg PO BID Qty: 30 RF: 0 quetiapine 25 mg Tablet 25 mg PO PRN PRNQty: 15 RF: 0 pantoprazole 40 mg Tablet,Delayed Release (Dr/Ec) 40 mg PO DAILY@0730 Qty: 30 RF: 0 mirtazapine 15 mg Tablet 7.5 mg PO DAILY@1700 Qty: 20 RF: 0 Continued losartan 50 mg Tablet 50 mg PO DAILY RF: 0 glucagon 1 mg Kit 1 mg IM DIRECTED PRNRF: 0 atorvastatin 80 mg Tablet 80 mg PO DAILY RF: 0 sennosides [senna] 8.6 mg Tablet 8.6 mg PO DAILY PRNRF: 0 acetaminophen 325 mg Tablet 650 mg PO Q6H PRNRF: 0 Lantus U-100 Insulin 100 unit/mL Solution 30 unit SUBCUT DAILY RF: 0 torsemide 20 mg Tablet 20 mg PO DIRECTED RF: 0 albuterol sulfate 2.5 mg /3 mL (0.083 %) Solution For Nebulization 2.5 mg INHALATION Q4H PRNRF: 0 dextrose [Glucose Gel] 40 % Gel 15 g PO DIRECTED PRNRF: 0 potassium chloride 10 mEq Tablet Extended Release 10 meq PO BID RF: 0 magnesium hydroxide 400 mg/5 mL Suspension 30 ml PO QHS PRNRF: 0 tamsulosin 0.4 mg Capsule 0.4 mg PO DAILY RF: 0 bisacodyl [Dulcolax (bisacodyl)] 10 mg Suppository 10 mg MO DAILY PRNRF: 0 Fleet Enema 19-7 gram/118 mL Enema 118 ml MO DAILY PRNRF: 0 nitroglycerin 0.4 mg Tablet, Sublingual 0.4 mg SUBLINGUAL Q5-15M PRNRF: 0 docusate sodium [Colace] 100 mg Capsule 100 mg PO BID PRNRF: 0 aspirin 81 mg Tablet 81 mg PO DAILY RF: 0 insulin lispro [Humalog U-100 Insulin] 100 unit/mL Solution 1 sliding scale dose SUBCUT USEASDIRECTD RF: 0 risperidone 1 mg Tablet 0.5 mg PO BID RF: 0 finasteride 5 mg Tablet 5 mg PO DAILY RF: 0 fluticasone propionate 110 mcg/actuation Hfa Aerosol Inhaler 2 puff INHALATION BID RF: 0 Discontinued prednisone 20 mg Tablet 40 mg PO DAILY Qty: 8 RF: 0 amoxicillin-pot clavulanate [Augmentin] 875-125 mg Tablet 1 tab PO BID RF: 0 Discharge Instructions Instructions: Heart Failure (DC), Dementia (GEN), Yeast Infection (GEN) Additional Instructions: repeat cbc in three days palliative to continue following sT to continue following Consider hospice Activity:: Activity as Tolerated Equipment/Supplies:: No Equipment Needed Diet:: Other Discharge Orders Discharge Orders: Discharge Order (Routine); Ordered 02/27/21 Ordered By: Irma Bender DS: Summary Time Spent with Patient providing and/or coordinating discharge services: Greater than 30 minutes Status at Discharge Functional status at discharge: bed bound Overall status at discharge: patient is not back to baseline Mental Status: mental status grossly normal and other Speech and Movement: speech and movement normal Mood: other Affect: normal affect Exam Const General: healthy appearing and comfortable Nutritional Appearance: average body habitus Orientation: alert, awake, not oriented x3 and oriented to person HENMT Head: normal to inspection Face and sinus: normal facial exam Mouth: mucous membranes dry Eyes General: appearance normal, both eyes and all related structures Neck Neck: normal visual inspection Resp Effort & Inspection: other (shallow breaths) Cardio Jugular venous pressure: no JVD Rate: regular rate Rhythm: regular rhythm GI Inspection: normal to inspection Palpation: soft and nontender Auscultation: normal bowel sounds Penis: penis abnormal (Tip of penis with yeast, erythema) Skin General skin exam: no rashes or lesions noted Neuro General: patient alert (sleepy), patient awake and not oriented x3 Speech: speech normal Motor: muscle tone normal throughout Sensory Exam: no sensory deficits noted Extrem General: normal to inspection, full ROM, capillary refill normal, no calf tenderness bilaterally and no edema Psych Appearance: grossly normal Mental Status: mental status grossly normal and other Speech and Movement: speech and movement normal Mood: other Affect: normal affect DS: Data Vitals/I&O Vitals and I&O: Vital Signs Temperature 36.1 C L 02/27/21 07:21 Temperature Source Tympanic 02/27/21 07:21 Pulse 85 02/27/21 07:21 Pulse Rhythm Regular 02/27/21 04:00 Pulse 68 02/18/21 11:50 Respiratory Rate 28 H 02/27/21 07:21 Respiratory Effort Incrsd Work of Breathing 02/27/21 04:00 Respiratory Depth Shallow 02/27/21 04:00 Respiratory Pattern Tachypnea 02/27/21 04:00 Blood Pressure 101/57 L 02/27/21 07:21 Blood Pressure Mean 93 02/18/21 11:46 Blood Pressure Position Sitting 02/18/21 08:39 Pulse Oximetry 100 02/27/21 07:21 Oxygen Delivery Method Nasal Cannula 02/27/21 07:21 Oxygen Flow Rate 4 02/27/21 07:21 Fraction of Inspired Oxygen (FIO2) 30 02/18/21 09:40 Pain Level 0 02/26/21 22:15 Comment 02/26/21 22:15 Intake & Output 02/26/21 02/26/21 02/27/21 11:59 23:59 11:59 Intake Total 700 / 700 Output Total 550 / 900 350 / 900 250 / 250 Balance -550 / -200 350 / -200 -250 / -250 Weight 71.7 kg Intake: IV 500 / 500 Oral 200 / 200 Output: Urine 550 / 900 350 / 900 250 / 250 Other: Urine Color Yellow Yellow Yellow Urine Appearance Cloudy Cloudy Cloudy Stool Size Moderate Stool Characteristics Soft Data Completed and Pending Completed studies during hospitalization [Text1]: Exam(s) XR PORTABLE CHEST AP EXAM: XR PORTABLE CHEST AP CLINICAL HISTORY: shortness of breath, r/o acute disease. TECHNIQUE: 2D digital imaging was performed. COMPARISON: Prior chest x-ray 02/13/2021 FINDINGS: Chest leads in place. Sternotomy wires and evidence of previous CABG again noted. The mediastinum is not widened. Right lung is clear. There is subsegmental platelike atelectasis in left lung base. No pleural effusions. No pulmonary edema. IMPRESSION: There is subsegmental platelike atelectasis in left lung base. Sternotomy and CABG. No pulmonary edema. Exam(s) PROCEDURE INFORMATION: Exam: XR Chest Exam date and time: 02/18/2021 9:07 AM Age: 80 years old Clinical indication: Shortness of breath TECHNIQUE: Imaging protocol: XR of the chest. Views: 1 view. COMPARISON: CR XR PORTABLE CHEST AP 02/13/2021 11:34 AM FINDINGS: Lungs: Unremarkable. No consolidation. Pleural spaces: Unremarkable. No pleural effusion. No pneumothorax. Heart/Mediastinum: The heart is not enlarged. The patient has undergone coronary bypass surgery. Bones/joints: Unremarkable. IMPRESSION: No acute cardiopulmonary abnormality. Dictated and Authenticated by: Gabriel Collins MD. : 1940ge: [id number] Exam(s) a CT:CT head - stroke protocol Exam(s) CT HEAD - STROKE PROTOCOL EXAM: CT HEAD - STROKE PROTOCOL CLINICAL HISTORY: L facial droop. TECHNIQUE: Imaging Protocol: Axial computed tomography images with coronal and sagittal reformatted images were created and reviewed COMPARISON: No exams were available for comparison FINDINGS: There are no skull fractures nor fluid in the visualized paranasal sinuses. There is no evidence of intracranial hemorrhage, mass effect, or shift of midline structures. There are no extra-axial fluid collections. The ventricles are not enlarged or shifted and there is no blood within the ventricular system nor within the basal cisterns. There is a significant area of asymmetric hypodensity in the right parietal lobe subcortical white matter, most probably ischemic, age indeterminate. Calcification of vertebral arteries at the skull base noted as well as both internal carotid arteries within the cavernous sinuses and supraclinoid aspects. There is, however, no evidence of asymmetric hyperdense middle cerebral artery. IMPRESSION: In the right posterior parietal region there is an area of white matter hypodensity consistent with ischemic change, possibly chronic but cannot exclude superimposed more acute ischemia at this level. If clinically indicated follow-up MRI with diffusion imaging can be performed. This study 1st read by [facility] Exam(s) PROCEDURE INFORMATION: Exam: CT Head Without Contrast Exam date and time: 02/19/2021 2:34 PM Age: 80 years old Clinical indication: Other: L facial droop TECHNIQUE: Imaging protocol: Computed tomography of the head without contrast. Other technique: STROKE PROTOCOL was implemented. COMPARISON: No relevant prior studies available. FINDINGS: Brain: No intracranial hemorrhage. No mass or midline shift. Mild periventricular and subcortical white matter hypoattenuation, nonspecific but consistent with chronic microvascular ischemic disease. Hypoattenuation in the RIGHT posterior parietal lobe likely represents chronic ischemic change. The possibility of superimposed acute infarction is not entirely excluded. Manley-white differentiation otherwise unremarkable. No extra-axial collections. Cerebral ventricles: The ventricles are normal in position and mildly enlarged. There is commensurate cortical sulcal prominence. The findings are consistent with age appropriate cerebral atrophy. No hydrocephalus. Paranasal sinuses: Mild bilateral ethmoid sinus mucoperiosteal thickening. No air-fluid levels. Mastoid air cells: The tympanomastoid air cells are normally aerated as visualized. Auditory system: Extensive soft tissue density in the external auditory canals likely ceruminous. Orbital cavity: The [place] lenses are absent. The orbits are otherwise unremarkable as visualized. Vasculature: Intracranial arterial calcification is present. Bones/joints: No acute fracture. No focal osseous lesions. Soft tissues: The soft tissues are unremarkable. IMPRESSION: 1. Hypoattenuation in the RIGHT posterior parietal lobe likely chronic ischemic change. The possibility of superimposed acute infarction is not entirely excluded. MRI of the brain include diffusion-weighted images could be further assessment. 2. Additional incidental/nonemergent findings as discussed above. ASSESSMENT: ASPECTS ([place] Stroke Program Early CT Score) is 10. Exam(s) MR BRAIN WO EXAM: MR BRAIN WO CLINICAL HISTORY: L facial droop TECHNIQUE: Multiplanar multisequence MRI of the brain was performed. COMPARISON: CT CT HEAD - STROKE PROTOCOL from 02/19/2021 FINDINGS: CEREBRAL PARENCHYMA: There is no evidence of intracranial hemorrhage, mass effect, or shift of midline structures. There are no extra-axial fluid collections. Ventricular size is not out of proportion when compared to the overlying cortical sulci. There is FLAIR bright area of signal abnormality in the subcortical white matter right parietal lobe, this corresponding to what was described on the recent CT scan. However, this area does not restricted diffusion on DWI and therefore probably sequelae a non recent ischemic event at this level. There is no prominent abnormal signal abnormality in the periventricular white matter. Exam(s) MR ANGIO BRAIN WO EXAM: MR ANGIO BRAIN WO CLINICAL HISTORY: L facial droop TECHNIQUE: Noninfused MRA of the brain was performed using [id number] sequence COMPARISON: Recent CT scans reviewed . MRI also reviewed. FINDINGS: ANTERIOR CIRCULATION: Both internal carotid arteries are demonstrated to be patent in the skull base-carotid canals as well as within the cavernous sinuses. Supraclinoid aspect of these vessels are patent. Both A1 segments are patent. Anterior cerebral arteries are patent. There is no evidence of obvious aneurysm at the level of the anterior communicating artery. Both middle cerebral arteries appear patent. POSTERIOR CIRCULATION: There is paucity of flow signal seen in the lower half basilar artery. Flow signal is seen in the distal half basilar artery. Flow in the posterior cerebral arteries is aided by posterior communicating arteries on both sides of the [id number]. There is no evidence of aneurysm tip of the basilar artery. IMPRESSION: 1. Significant decreased flow signal evident in the proximal half of the basilar artery. Flow is seen in the distal half the basilar artery and posterior cerebral arteries. Bilateral posterior communicating arteries are noted on both sides the duojsk-ud-[id number]. 2. There appears to be patent flow in the anterior circulation. 3. Recommend CT angiography of the head and neck, given the above findings. Exam(s) MR ANGIO BRAIN WO EXAM: MR ANGIO BRAIN WO CLINICAL HISTORY: L facial droop TECHNIQUE: Noninfused MRA of the brain was performed using [id number] sequence COMPARISON: Recent CT scans reviewed . MRI also reviewed. FINDINGS: ANTERIOR CIRCULATION: Both internal carotid arteries are demonstrated to be patent in the skull base-carotid canals as well as within the cavernous sinuses. Supraclinoid aspect of these vessels are patent. Both A1 segments are patent. Anterior cerebral arteries are patent. There is no evidence of obvious aneurysm at the level of the anterior communicating artery. Both middle cerebral arteries appear patent. POSTERIOR CIRCULATION: There is paucity of flow signal seen in the lower half basilar artery. Flow signal is seen in the distal half basilar artery. Flow in the posterior cerebral arteries is aided by posterior communicating arteries on both sides of the [id number]. There is no evidence of aneurysm tip of the basilar artery. IMPRESSION: 1. Significant decreased flow signal evident in the proximal half of the basilar artery. Flow is seen in the distal half the basilar artery and posterior cerebral arteries. Bilateral posterior communicating arteries are noted on both sides the hyyssp-vb-Wgsevq. 2. There appears to be patent flow in the anterior circulation. 3. Recommend CT angiography of the head and neck, given the above findings. Exam(s) MR ANGIO NECK WO EXAM: MAGNETIC RESONANCE ANGIOGRAPHY OF THE NECK CLINICAL HISTORY: L facial droop. TECHNIQUE: MRA carotid arteries in the neck performed [id number] sequence (no IV contrast) CONTRAST MATERIAL: None COMPARISON: Recent CT scan was reviewed. Also recent MRI. FINDINGS: Study quality is less than optimal. Apparently this somewhat unresponsive patient was not able to hold still and follow instructions. ANTERIOR CIRCULATION: The common carotid arteries are patent. Mild stenosis seen in the proximal internal carotid arteries bilaterally. No obvious critical stenosis evident at this level on either side. Both internal carotid arteries are also demonstrated to be patent higher up in the neck as well as within the skull base. POSTERIOR CIRCULATION: There is poor flow signal evident in the vertebral arteries, particularly on the left side. Left vertebral artery does not exhibit flow signal proximally, only in the upper aspect of the neck. Right vertebral artery is a thin vessel. At the skull base there is absence of normal flow signal at the origin of the basilar artery. IMPRESSION: Suboptimal but abnormal study, particularly with regards to the posterior circulation, as described above. Recommend follow-up CT angiography of the head and neck. Exam(s) XR PORTABLE CHEST AP EXAM: XR PORTABLE CHEST AP CLINICAL HISTORY: SOB TECHNIQUE: 2D digital imaging was performed of the chest. One image was obtained. An AP view was obtained. COMPARISON: CR,XR XR PORTABLE CHEST AP from 02/18/2021 FINDINGS: MEDIASTINUM: Normal. HEART: Normal. Findings of a prior CABG. PULMONARY VASCULATURE: Normal. LUNGS: Clear. PLEURAL SPACE: No pleural effusion or pneumothorax. BONE:Within normal limits for the patient's age. Sternal wires are in place. OTHER FINDINGS:Normal. IMPRESSION: No acute pulmonary findings. Exam(s) PROCEDURE INFORMATION: Exam: XR Chest Exam date and time: 02/25/2021 12:16 PM Age: 80 years old Clinical indication: Other: SOB TECHNIQUE: Imaging protocol: XR of the chest. Views: 1 view. COMPARISON: CR XR PORTABLE CHEST AP 02/18/2021 9:45 AM FINDINGS: Lungs: Clear lungs. Pleural spaces: No sizable pleural effusion. No pneumothorax. Heart/Mediastinum: Cardiomediastinal silhouette is within normal limits. Bones/joints: No acute displaced fracture or dislocation. IMPRESSION: No acute cardiopulmonary process. Labs on day of discharge: Labs from last 24 hours 02/27/21 02/27/21 02/27/21 08:54 06:12 06:12 WBC 20.99 H RBC 3.90 L Hgb 11.4 L Hct 36.6 L MCV 93.8 MCH 29.2 MCHC 31.1 L RDW 14.1 Plt Count 224 MPV 11.3 H Immature Gran % 0.6 Neutrophils % 82.4 Lymphocytes % 8.4 Monocytes % 7.8 Eosinophils % 0.6 Basophils % 0.2 Nucleated RBC % 0 Absolute Neutrophils 17.30 H Absolute Lymphocytes 1.76 Absolute Monocytes 1.64 H Absolute Eosinophils 0.13 Absolute Basophils 0.04 RBC Morphology See Below [place] Cells/Echinocytes 2+ Sodium 144 Potassium 5.1 Chloride 111 H Carbon Dioxide 23.1 Anion Gap 9.9 BUN 44 H D Creatinine 2.6 H D Estimated GFR/1.73 m2 23.93 Glucose 259 H Calcium 9.0 C-Reactive Protein 7.48 H Urine Color Urine Clarity Urine pH Ur Specific [place] Urine Protein Urine Ketones Urine Blood Urine Nitrite Urine Bilirubin Urine Urobilinogen Ur Leukocyte Esterase Urine RBC Urine WBC Ur Epithelial Cells Urine Crystals Urine Bacteria Urine Casts Urine Mucus Ur Culture Indicated? Urine Glucose COVID-19 Source Pending SARS-CoV-2 (PCR) Pending 02/26/21 13:00 WBC RBC Hgb Hct MCV MCH MCHC RDW Plt Count MPV Immature Gran % Neutrophils % Lymphocytes % Monocytes % Eosinophils % Basophils % Nucleated RBC % Absolute Neutrophils Absolute Lymphocytes Absolute Monocytes Absolute Eosinophils Absolute Basophils RBC Morphology Heena Cells/Echinocytes Sodium Potassium Chloride Carbon Dioxide Anion Gap BUN Creatinine Estimated GFR/1.73 m2 Glucose Calcium C-Reactive Protein Urine Color Yellow Urine Clarity Clear Urine pH 5.5 Ur Specific [place] 1.025 Urine Protein Negative Urine Ketones Negative Urine Blood Moderate H Urine Nitrite Negative Urine Bilirubin Negative Urine Urobilinogen 0.2 Ur Leukocyte Esterase Trace H Urine RBC 10-20 H Urine WBC 5-10 Ur Epithelial Cells Rare Urine Crystals Negative Urine Bacteria Few Urine Casts 5-10 Hyaline Urine Mucus Trace Ur Culture Indicated? Yes Urine Glucose Negative COVID-19 Source SARS-CoV-2 (PCR) Preliminary micro results at discharge 02/26/21 13:00 Urine Culture - Preliminary Urine - Reflex from [facility] All Active Problems (Updated 02/26/21 @ 12:01 by Irma Bender NP) Yeast dermatitis of penis (Acute) Palliative care patient (Acute) Acute exacerbation of chronic obstructive pulmonary disease (Acute) Discharge planning issues (Acute) DVT prophylaxis (Acute) IDDM (insulin dependent diabetes mellitus) (Chronic) Acute exacerbation of chronic obstructive pulmonary disease (COPD) (Acute) Sepsis (Acute) HCAP (healthcare-associated pneumonia) (Acute) Acute kidney injury superimposed on chronic kidney disease (Acute) Medical History (Updated 02/26/21 @ 12:01 by Irma Bender NP) BPH (benign prostatic hyperplasia) CAD (coronary artery disease) of artery bypass graft Chronic kidney disease Baseline Cr around 1.5 Chronic pain COPD (chronic obstructive pulmonary disease) Dementia Diabetes DNI (do not intubate) DNR (do not resuscitate) History of recurrent UTIs Urinary retention Surgical History (Updated 02/19/21 @ 14:41 by Violetta George MD) S/P CABG (coronary artery bypass graft) Family History (Updated 02/18/21 @ 15:59 by Violetta George MD) Other Family history unobtainable due to patient's condition Social History Smoking/Tobacco Use Status: Unknown Smoking risk assessment performed?: Yes Do you feel safe at home: Yes ([facility]) Do you feel safe in your relationship?: Yes
[2021-02-27 09:12] LABS: Source Nasal/Nares
--- NOTE | 2021-02-27 09:18 | PDOC.CMDIS ---
- If Service Date Differs Date of service: 02/27/21 Time of Service: 09:19 LACE Index Scoring Tool - Questions: Length of Stay (in days): 7 - 13 Acuity (Admit via E.D.?): Yes Comorbidities: Diabetes w/o Complication, Chronic Pulmonary Disease, Dementia E.D. Visits: 2 - Answers: Total Score: 15 Risk of Readmission: High Risk Care Management Discharge Reason for Hospitalization: Exacerbation of COPD, respiratory distress Discharge Plan: Discharge back to [facility] via EMS arranged by CM. Follow up with community providers and discharge plan of care as prescribed. Patient/Family Education Needs: Review discharge instructions, limitations and discharge plan of care as prescribed. ask me three. Services Needed at Discharge: [facility] ([facility]), Transportation (EMS at 11am ([facility] arranged by [facility]))
[2021-02-27] MEDS: Ciprofloxacin 250 MG TAB PO (09:42)
[2021-02-27] MEDS: Aspirin E.C. 81 MG TABEC PO (09:42)
[2021-02-27] MEDS: Doxycycline Hyclate 100 MG CAP PO (09:43)
[2021-02-27] MEDS: Finasteride 5 MG TAB PO (09:43)
[2021-02-27] MEDS: Fluconazole 100 MG TAB 200 MG PO (09:44)
[2021-02-27] MEDS: Losartan 50 MG TAB PO (09:44)
--- NOTE | 2021-02-27 09:44 | SPP_ITS ---
Date of service: 02/27/21 Time of Service: 08:30 Subjective Patient was contacted at bedside this date, RN assisting to joanie lift patient to armchair for breakfast to promote alertness, appropriate positioning. Patient very somnolent to begin with but increasingly alert after providing oral care, ice chips, eventually spontaneously initiating PO intake request via gesture. Increased confusion (patient attempting to eat his napkin) and benefitted from allowing him to hold an empty utensil while providing 1:1 feeding on order to promote naturalness/ implicit participation. Per RN, patient very somnolent over weekend, improved performance when with increased alertness. Continued to tolerate thick liquids over the weekend, occasionally trialing thin liquids via spoon, but with increased s/sx aspiration. Objective/Assessment/Plan Objective Treatment Techniques & Outcomes: Respiratory: Tolerating RA w/o s/sx dyspnea at baseline. Some baseline congestion, clearing spontaneously with cough and assist w oral suction. Mental status: Initially with minimal verbal responsiveness, increasing throughout session and eventually initiating/making requests of clinician (leona, if you keep taking the straw away I don't want to drink anything.). Not oriented to place/situation. Communication: Decreased verbal communication this date. Unable to provide Y/N responses. Previously dysarthric, requiring frequent requests for repetition and providing cues for increased loudness, slow pace. 1. Patient will tolerate IDDSI Level(s) 4/1 (puree/mildly thick liquids) without s/sx aspiration provided training in/use of swallow strategies and aspiration precautions within 1 week. (GOAL UPDATED 02/24 to reflect current least restrictive diet) - IN PROGRESS/NOT MET Oral care provided. Patient with strong bite response/oral fixation - difficult to provide thorough oral care. Food items tested: [ ] None. Further swallow assessment not warranted at this time. [x] Ice: 1 at a time via TSP [x] IDDSI 0: via TSP [x] IDDSI 1: via TSP [ ] IDDSI 2: [ ] IDDSI 3: [x] IDDSI 4: via TSP (pureed eggs) [ ] IDDSI 5: [ ] IDDSI 6: [ ] IDDSI 7: [ ] Pill/tablet: Oral phase: [ ] WFL [x] Leakage from mouth - at times profuse with thin liquids [ ] Difficulty with bolus manipulation [x] Difficulty with a-p transport [ ] Difficulty chewing [ ] Pocketing [x] Residue - diffuse lingual with puree/pudding. improved with sip liquid Pharyngeal phase: [ ] WFL [x] Delayed swallow initiation - notable [x] Reduced hyolaryngeal elevation/excursion [x] Cough after swallow - delayed, increasing over course of meal [x] Voice change after swallow - UNABLE TO ASSESS - patient without verbalizations this date. [ ] Throat clearing [ ] Endorsed stasis Strategies: - TSP ONLY - pt unable to organize cup sip or straw sip this date - thickened liquids - improved but did not eliminate - extra swallows - previously successful - unable to stimulate this strategy this date - liquid wash after puree - improved oral residue 2. Patient/caregivers will demonstrate understanding of education related to normal vs disordered swallowing, impact of current diagnoses on swallow function, relationship between respiration and deglutition, and recommended strategies for minimizing risks of aspiration pna/airway occlusion within 1 week. - IN PROGRESS/MET RN verbalizing understanding: - Rationale for thickened liquids WITH MEALS and thin liquids/ice chips BETWEEN MEALS with INCREASED oral care. this date and reiterated rationale for safe swallow strategies as below. - Repeated rationale/instruction for suction oral care kits and increased frequency of oral care to reduce oral bacterial load and increase oral comfort, beneficial to enable consumption of thin liquids between meals - Impact of somnolence, de-conditioning on overall swallow function Assessment IMPRESSIONS: Patient less alert, minimally verbally responsive for this AM/breakfast session. Improving alertness when provided with oral stimulation (oral care, etc). Patient appears with increased difficulty with oral & pharyngeal swallow function this date reflective of increased fatigue, deconditioning (e.g.., poor oral containment, reduced and delayed laryngeal elevation to palpation). Suspect his swallow function would improve with increased alertness, activity, conditioning. While he appears to tolerate mildly thickened liquids > thin liquids, he would benefit from provision of thin liquids via teaspoon or ice chips for hydration as much as possible between meals, especially given clear chest imaging over weekend. Continue to recommend thickened liquids DURING meals in setting of fatigue with the expectation that his status may improve. If patient's medical status (deconditioning, alertness) does NOT improve, patient will benefit from reconsideration of thickened liquids recommendation, given palliative care status with potential for hospice under consideration. D/C recommendations: Continue to recommend [employer] re-evaluation at [facility]. Consideration for [facility] on outpatient basis if patient medical status appears stable and appropriate in order to provide more objective recommendations of safest/least restrictive diet. Plan Plan: Discharging from [employer] services, as patient to D/C to [facility] later this date. Will contact [employer] provider at D/C location to discuss recommendations for continued monitoring. Recommendations Recommendations: Diet Texture Modification(s): IDDSI Level(s) 4-pur?ed solids, DURING MEALS: 1 Mildly thickened liquids BETWEEN MEALS: 0 Thin liquids or ice chips via TSP, as long as diligent oral care provided throughout day per below recommendations. Medication Intake: Whole or crushed with 4-Extremely Thick Liquids/Pureed solids as tolerated with thickened liquid wash Alter medications only as advised by MD or Pharmacist RISK MANAGEMENT: Oral hygiene BID/2x per day, and before/after PO intake using ORAL CARE SUCTION KITS all oral structures as tolerated, may use moisturizing gel for comfort also. HOB as upright as possible or BOLT upright in chaire as tolerated; upright for all PO intake. Encourage physical mobility as tolerated. Level of Assistance/Supervision: 1:1 assist for all PO intake, primarily for use of risk management strategies as outlined. PO intake only when awake/alert Strategies/Adaptations/Assistive Equipment: Reduce auditory and/or visual distractions when eating Provide verbal and/or visual cues to use recommended strategies BITES AND SIPS VIA TSP ONLY (1/2 TSP) Slow rate of intake Swallow between bites Alternate intake of liquids and solids If patient with shortness of breath, stop p.o. intake and resume when RR has recovered OTHER: Allow patient to hold empty utensil during meals, toothbrush during oral care in order to provide implicit/priming cues to promote successful participation. Communication: For Patient: Encourage repetition from patient if unable to comprehend speech; slow rate of speech; increased vocal intensity from patient Body Language: Open and relaxed. Ensure eye contact. Stand or sit where patient can see and hear you as clearly as possible ? usually this will be in front of them, and with your face well-lit. Try to be at eye-level, rather than standing over them. Speaking/Listening: Communicate clearly and calmly. Go at a slightly slower pace than usual if the person is struggling to follow you; Allow time between sentences for the person to process the information and respond. Use short, simple sentences - Avoid childish talk, speaking sharply/raising your voice. Try to communicate in a conversational way, rather than asking question after question which may feel quite tiring or intimidating. Try to let the patient complete their own sentences, avoiding assumptions that you know what they are trying to say. Include the patient in conversations with others, using their name whenever possible. If patient fatigues frequently - short, regular conservations are typically best. Prompts: using visual/tactile cues vs verbal only, ie pointing at a photo of someone or encouraging the person to hold/interact with an object you are talking about. Posture/Positioning Needs: Maintain upright position at least 30 minutes after meals, Avoid meals/snacks 2- 3 hours prior to reclining/sleeping, Sleep with head of bed elevated to reduce likelihood of nocturnal reflux Ensure patient is at midline Specialist referrals: N/A Ancillary tests: N/A Time spent: 60 min Treat code: 93543 Swallow tx Mary Álvarez M.S. [facility]-[employer] [phone] Coding
[2021-02-27] MEDS: Pantoprazole 40 MG TABCR PO (09:45)
[2021-02-27] MEDS: QUEtiapine 25 MG TAB PO (09:45)
[2021-02-27] MEDS: Potassium Chloride 20 MEQ TABCR 40 MEQ PO (09:45)
[2021-02-27] MEDS: Tamsulosin 0.4 MG CAPCR PO (09:45)
[2021-02-27] MEDS: Torsemide 20 MG TAB PO (09:46)
[2021-02-27 10:10] LABS: COVID-19 PCR Negative (Negative)
== END 2021-02-27 11:03 | disposition skilled nursing facility (03) | DRG 191 ==
LOC: ER 11:38 → MS 12:25
PROVIDERS: Nurse Practitioner Acute Care; Nurse Practitioner Family; Admitting Provider Internal Medicine; Emergency Provider Physician Assistant; PCP Family Medicine; Visit Provider Internal Medicine
DX: J44.1 Chronic obstructive pulmonary disease with (acute) exacerbation (principal); I13.0 Hypertensive heart and chronic kidney disease with heart failure and stage 1 through stage 4 chronic kidney disease, or unspecified chronic kidney disease; F05 Delirium due to known physiological condition; I50.9 Heart failure, unspecified; E11.22 Type 2 diabetes mellitus with diabetic chronic kidney disease; Z79.4 Long term (current) use of insulin; Z99.81 Dependence on supplemental oxygen; I25.10 Atherosclerotic heart disease of native coronary artery without angina pectoris; N18.9 Chronic kidney disease, unspecified; N40.0 Benign prostatic hyperplasia without lower urinary tract symptoms; F03.90 Unspecified dementia, unspecified severity, without behavioral disturbance, psychotic disturbance, mood disturbance, and anxiety; Z20.822 Contact with and (suspected) exposure to COVID-19; Z66 Do not resuscitate; R45.1 Restlessness and agitation; Z86.73 Personal history of transient ischemic attack (TIA), and cerebral infarction without residual deficits; B37.42 Candidal balanitis; Z51.5 Encounter for palliative care
CPT/HCPCS: 36410; 36415; 36416; 70544; 70547; 80048; 80053; 80061; 82805; 82947; 82962; 84145; 85027; 87040; 87081; 87635; 92526; 92610; 93005; 93306; 94640; 96361; 96365; 96372; 96375; 97162; 97530; 99285; 36600; 70450; 70551; 71045; 80202; 81003; 81015; 83605; 83735; 83880; 84484; 85025; 86140; 87086; 92507; 93010; 94660; 99223; 99231; 99232; 99233; 99239; J1200; J1630; J1650; J1941; J2060; J2543; J2930; J3490; J7512; J7613; J7620